=== PATIENT | female | born 1940 | race Hispanic/Latino ===

== ENCOUNTER 2018-08-05 05:44 | Day surgery (SDC) | payer MEDICARE ==
[2018-08-03 13:24] LABS: POTASSIUM 4.5 mmol/L (3.5-5.1)
[2018-08-03 13:25] LABS: BASOPHILS % (AUTO) 0.6 % (0.0-5.0); EOSINOPHILS % (AUTO) 1.5 % (0.0-8.0); HEMATOCRIT 34.2 % (36-48); LYMPHOCYTES % (AUTO) 27.8 % (21.0-51.0); MEAN CORPUSCULAR HEMOGLOBIN 36.3 pg (27.0-33.0); MEAN CORPUSCULAR VOLUME 106.7 fL (79-99); NEUTROPHILS % (AUTO) 60.1 % (40.0-77.0); PLATELET COUNT (AUTO) 154 K/uL (130-400); RED BLOOD CELL COUNT(AUTO) 3.21 MIL/uL (4.00-5.50); RED CELL DISTRIBUTION WIDTH 14.2 % (11.0-15.5); WHITE BLOOD COUNT (AUTO) 7.1 K/uL (4.8-10.8)
[2018-08-03 13:42] VITALS: BP 125/69
[2018-08-03 13:44] LABS: INR 3.2 (0.85-1.15); PARTIAL THROMBOPLASTIN TIME 54.6 SEC (26.3-35.5); PROTHROMBIN TIME 32.8 SEC (9.6-11.6)
[2018-08-05] VITALS (8 sets, daily range): BP systolic 98–140; BP diastolic 42–80
[~2018-08-05] VITALS: Ht 156.2 cm; Wt 75.4 kg
[~2018-08-05 05:44] MED LIST: CALC-1009 PO; CEFAZOLIN SODIUM 1 GM VIAL IVP SCH; FISH1CAP27 PO; METO25TA6 PO; PANT20TA12 PO; SODIUM CHLORIDE 0.9% 1000ML 1,000 ML IV SCH; TAMO20TA4 PO; WARF2.5T47 PO; WARF5TAB76 PO
[2018-08-05 06:41] LABS: INR 1.82 (0.85-1.15); PARTIAL THROMBOPLASTIN TIME 34.6 SEC (26.3-35.5); PROTHROMBIN TIME 18.9 SEC (9.6-11.6)
[2018-08-05] MEDS ORDERED: CYAN100T PO (07:27)
[2018-08-05] MEDS ORDERED: BRIM5DRO OP (07:27)
[2018-08-05] MEDS ORDERED: MIDAZOLAM HCL 1 MG/ML 2ML VIAL ONE (08:25)
[2018-08-05] MEDS ORDERED: BUPIVACAINE/PF 0.25% 30ML VIAL IJ ONE (08:25)
[2018-08-05] MEDS ORDERED: LIDOCAINE HCL 1% MDV 50ML VIAL ONE (08:25)
[2018-08-05] MEDS ORDERED: MEPERIDINE-PF 25 MG/ML SYG ONE (08:25)
[2018-08-05] MEDS ORDERED: CEFAZOLIN SODIUM 1 GM VIAL ONE (08:26)
[2018-08-05] MEDS ORDERED: ACETAMINOPHEN-CODEINE 300/30MG TAB PO PRN ×2 (09:45)
[2018-08-05] MEDS ORDERED: ACETAMINOPHEN 325 MG TAB PO PRN (09:45)
[2018-08-05] MEDS ORDERED: ONDANSETRON HCL 4 MG/2 ML VIAL IV PRN (09:45)
[2018-08-05] MEDS ORDERED: CEFAZOLIN SODIUM 1 GM VIAL IVP ONE (10:00)
[2018-08-05] MEDS ORDERED: WARFARIN SODIUM 7.5 MG TAB PO ONE (12:00)
== END 2018-08-05 13:09 | disposition home or self-care (01) ==
LOC: DAH 05:44
PROVIDERS: ATTEND Internal Medicine Cardiovascular Disease
DX: Z45.010 Encounter for checking and testing of cardiac pacemaker pulse generator [battery] (principal); I48.1 Persistent atrial fibrillation; Z79.01 Long term (current) use of anticoagulants; Z98.890 Other specified postprocedural states; Z79.899 Other long term (current) drug therapy; Z83.3 Family history of diabetes mellitus
CPT/HCPCS: 33228; 36415 ×2; 80048; 85025; 85610 ×2; 85730 ×2; A4606; C1785; J0690 ×2; J2175; J2250; J3490 ×2; J7030; 99156; 99157

== ENCOUNTER → 2018-10-07 | Outpatient (CLI) | payer MEDICARE ==
[~2018-10-07] MED LIST changes: +ALBUTEROL SULFATE 0.083% 2.5 MG/3 ML INH IH ONE; +BRIM5DRO OP; -CEFAZOLIN SODIUM 1 GM VIAL IVP SCH; +CYAN100T PO; -SODIUM CHLORIDE 0.9% 1000ML 1,000 ML IV SCH
== END | disposition home or self-care (01) ==
LOC: RESP 09:53
PROVIDERS: ATTEND Internal Medicine Cardiovascular Disease
DX: R06.02 Shortness of breath (principal)
CPT/HCPCS: 94060; 94727; 94729

== ENCOUNTER 2025-07-11 08:45 | Inpatient (IN) | payer MEDICARE ==
[~2025-07-11] VITALS: Ht 154.9 cm; Wt 68.6 kg
[2025-07-11] VITALS (33 sets, daily range): BP systolic 90–134; BP diastolic 32–70; PULSE 63–90; RESP 14–41; TEMP 98.9–99.8; O2SAT 90–98
[~2025-07-11 08:45] MED LIST changes: -ALBUTEROL SULFATE 0.083% 2.5 MG/3 ML INH IH ONE; -CYAN100T PO; +CYAN100T45 PO; -PANT20TA12 PO; +PANT20TA18 PO; +WARF2.5T PO; -WARF2.5T47 PO; +WARF5TAB PO; -WARF5TAB76 PO
--- NOTE | 2025-07-11 08:57 | ERN ---
General Chief Complaint: Shortness of Breath Stated Complaint: SHORTNESS OF BREATH Time Seen by MD: 08:54 History of Present Illness Initial Comments 84-year-old female hit history of multiple cardiac comorbidities including CABG CHF mitral valve replacement and AFib presents for dyspnea. According to the patient, she went to bed in her normal state of health. Around 3:00 a.m. she developed dyspnea and had to sit up. She normally uses 3 L of nasal cannula at home. EMS reports an oxygen saturation in the high 70s. Patient placed on a non-rebreather mask by EMS and oxygen saturation improved to 95%. Patient is tachypneic breathing 30 times a minute. She does have some crackles bilateral lungs. She denies any productive sputum or fever. She does report cough. She has 1+ pitting edema bilaterally. She denies any pain. Allergies: Coded Allergies: No Known Drug Allergies (Unverified Allergy, Unknown, 08/03/18) Home Meds Reported Medications Brimonidine Tartrate/Timolol (Combigan Eye Drops) 5 Ml Drops, 5 ML OP BID, DROP 08/05/18 Cyanocobalamin (Vitamin B-12) (Vitamin B-12) 100 Mcg Tablet, 100 MCG PO DAILYLUNCH, TAB 08/05/18 Pantoprazole Sodium (Pantoprazole Sodium) 20 Mg Tablet.dr, 20 MG PO DAILY, TAB 08/03/18 Niles-3 Fatty Acids/Fish Oil (Niles 3 1,000 mg Softgel) 1 Each Capsule, 1 EACH PO NOON, CAP 08/03/18 Calcium Carb & Cit/Vitamin D3 (Calcium + D3 ER Tablet) 1 Each Tablet.er, 1 EACH PO NOON, TAB 08/03/18 Tamoxifen Citrate (Tamoxifen Citrate) 20 Mg Tablet, 20 MG PO DAILY, TAB 08/03/18 Metoprolol Tartrate (Metoprolol Tartrate) 25 Mg Tablet, 25 MG PO BID, TAB 08/03/18 Warfarin Sodium (Coumadin) 2.5 Mg Tablet, 2.5 MG PO //fri, TAB 08/03/18 Warfarin Sodium (Coumadin) 5 Mg Tablet, 5 MG PO m//sat/sun, TAB 08/03/18 ROS Dictation CONSTITUTIONAL: No chills, no fever, no weakness, no diaphoresis, no malaise. HEAD/FACE: No signs of trauma. EENT: No eye pain, no blurred vision, no tearing, no double vision, no ear pain, no ear discharge, no nose pain, no nasal congestion, no throat pain, no throat swelling, no mouth pain. RESPIRATORY: Dyspnea CARDIOVASCULAR: No chest pain, no edema, no palpitations, no syncope. GASTROINTESTINAL/ABDOMINAL: No abdominal pain, no constipation, no diarrhea, no nausea, no vomiting. GENITOURINARY: No abnormal discharge, no dysuria, no frequent urination, no hematuria. No complaints of pain in the genitals. MUSCULOSKELETAL: No back pain, no gout, no joint pain, no joint swelling, no muscle pain, no muscle stiffness, no neck pain. INTEGUMENTARY: No change in color, no change in hair/nails, no dryness, no lesion, no lumps, no rash. NEUROLOGICAL/PSYCH: No anxiety, not depressed, no emotional problem, no headache, no numbness, no pre-existing deficit, no history of seizures, no tremors, no weakness. HEMATOLOGIC/LYMPHATIC: Not anemic, no history of blood clots, no apparent bleeding, no bruising, glands not swollen. All Systems Negative, Except as Noted. Physical Exam Physical Exam Dictation VITAL SIGNS: Reviewed. GENERAL APPEARANCE: Alert, oriented x3, moderate distress due to the dyspnea HEAD AND FACE: Non-traumatic. EYES: PERRL, pink conjunctivas, eyelid no trauma, anterior chamber clear. EARS: Pinnas intact and no signs of trauma or erythema. Ear canals clear and no discharge. TMs no erythema. NOSE: No discharge, no bleeding. OROPHARYNX: Mouth normal, teeth no caries, tongue pink. Pharynx clear, no erythema. Tonsils no exudates, no abscesses noted. Mucous membrane moist. NECK: Supple, non-tender, no thyromegaly, no masses, no JVD, no bruits. BREAST: Deferred. CHEST: No tenderness, no crepitus, no paradoxical movement, no retractions. LUNGS: Tachypneic, crackles in the lung sounds HEART: Regular rate, regular rhythm, no murmur, no gallops. VASCULAR: No peripheral edema. ABDOMEN: Soft, positive bowel sounds, nondistended, no guarding, nontender, no rebound, no masses no hepatomegaly, no splenomegaly, no Boston's sign, no hernias. RECTAL: Deferred. GENITAL: Deferred. NEUROLOGICAL: Normal speech, gross motor function intact, gross sensory fun ction intact. MUSCULOSKELETAL: Neck nontender, full range of motion, back nontender, full range of motion. 1+ pitting edema EXTREMITIES: Nontender, full range of motion. SKIN: Color pink, dry, no turgor, no rash, no lacerations, no abrasions, no contusions. LYMPHATICS: Deferred. Results Laboratory and Microbiology Lab and Micro Result Laboratory Tests Test 07/11/25 09:05 07/11/25 09:31 White Blood Count 14.2 K/uL (4.8-10.8) H Red Blood Count 2.67 MIL/uL (4.00-5.50) L Hemoglobin 8.4 g/dL (12.0-16.0) L Hematocrit 28.7 % (36-48) L Mean Corpuscular Volume 107.5 fL (79-99) H Mean Corpuscular Hemoglobin 31.5 pg (27.0-33.0) Mean Corpuscular Hemoglobin Concent 29.3 g/dL (32.0-36.0) L Red Cell Distribution Width 17.9 % (11.0-15.5) H Platelet Count 238 K/uL (130-400) Mean Platelet Volume 10.7 fL (7.5-10.5) H Immature Granulocyte % (Auto) 0.4 % (0-1) Neutrophils (%) (Auto) 84.9 % (40.0-77.0) H Lymphocytes (%) (Auto) 5.6 % (21.0-51.0) L Monocytes (%) (Auto) 8.3 % (3.0-13.0) Eosinophils (%) (Auto) 0.6 % (0.0-8.0) Basophils (%) (Auto) 0.2 % (0.0-5.0) Neutrophils # (Auto) 12.0 K/uL (1.8-7.7) H Lymphocytes # (Auto) 0.8 K/uL (1.0-4.8) L Monocytes # (Auto) 1.2 K/uL (0.1-1.0) H Eosinophils # (Auto) 0.09 K/uL (0.00-0.70) Basophils # (Auto) 0.03 K/uL (0.00-0.20) Absolute Immature Granulocyte (auto 0.06 K/uL (0-1) Nucleated Red Blood Cells 0.4 % (0.0-0.19) H Sodium Level 140 mmol/L (136-145) Potassium Level 5.1 mmol/L (3.5-5.1) Chloride Level 102 mmol/L (101-111) Carbon Dioxide Level 33 mmol/L (21-32) H Blood Urea Nitrogen 26 mg/dL (7-18) H Creatinine 1.1 mg/dL (0.5-1.0) H Glomerular Filtration Rate Calc 49 mL/min (>90) Random Glucose 188 mg/dL (70-105) H Lactic Acid Level 3.1 mmol/L (0.8-2.5) H Total Calcium 8.9 mg/dL (8.5-10.1) Total Creatine Kinase 73 U/L (21-232) Troponin I High Sensitivity 19.1 ng/L (4-50) Blood Gas Specimen Type Arterial Arterial Blood pH 7.315 (7.350-7.450) Arterial Blood Partial Pressure CO2 56 mmHg (32-45) H Arterial Blood Partial Pressure O2 149.2 mmHg (83.0-108.0) H Arterial Blood HCO3 27.7 mmol/L (21.0-28.0) Arterial Blood Oxygen Saturation 98.7 % (94.0-98.0) H Arterial Blood Base Excess 1.0 mmol/L (-2.0-3.0) Hemoglobin (Blood Gas) 9.2 g/dL (12.0-16.0) L Sodium (Blood Gas) 137 MMOL/L (136-145) Bedside Potassium (Blood Gas) 4.8 MMOL/L (3.4-4.5) H Bedside Chloride (Blood Gas) 103 MMOL/L (98-107) Bedside Glucose (Blood Gas) 165 MG/DL (65-95) H Bedside Ionized Calcium (Blood Gas) 1.17 MMOL/L (1.15-1.33) Bedside Lactic Acid (Blood Gas) 1.58 MMOL/L (0.36-0.75) H Blood Gas Temperature 37.0 CELSIUS (35.5-37.0) Blood Gas Flow-by 15.00 L/min (0.00-15.00) Blood Gas Vent Mode NRM (ROOM AIR) FiO2 100.0 % Blood Gas Specimen Comment CRISTA, [facility] CC: dyspnea Historian: patient Comorbidities: afib, CABG, gastritis Limitations by social determinates of health: none Ddx: pneumonia, pulm edema, sepsis, hypoxia, ACS, etc. Fever, tachycardia, tachypnea, BP stable. EKG shows atrial fibrillation, rate of 90, left axis deviation, delayed R-wave progression. No STEMI. Independently interpreted by me. Labs show leukocytosis 14.2 K left shift no bands. Macrocytic anemia hemoglobin 8.4. ABG shows a pCO2 of 56 PaO2 of 149 while on BiPAP. Chemistry shows BUN 26 creatinine 1.1. Lactic acid 3.1. Troponin stable. Chest x-ray shows fluid overload with cardiomegaly, also right upper lobe pneumonia. Labs and imaging independently interpreted by me. Treatment in ED: Zosyn, azithromycin, BiPAP, 500 cc lactated Ringer's. 40 mg Lasix IV. DuoNeb. Patient does meet sepsis criteria, likely source lungs. Clinically patient has a also fluid overloaded. Patient was placed on BiPAP and became stable. She has been develop a fever and received some Tylenol. Patient only received 500 cc of lactated Ringer's because she is clinically fluid overloaded, want to avoid fluid overload. On sepsis focused re-evaluation after the IV fluids and IV antibiotics the patient has cap refill less than 2 seconds since stable perfusion. Admitted to hospitalist. ED Course Orders Procedure Category Date Status Time Arterial Blood Gas RT 07/11/25 Transmitted 08:54 Bipap Settings RT 07/11/25 Transmitted 08:54 Cbc With Differential LAB 07/11/25 In Process 08:54 Cardiac Panel LAB 07/11/25 Complete 08:54 Chest 1vw RAD 07/11/25 Resulted 08:54 Ipratropium/Albuterol PHA 07/11/25 Complete Neb (Duoneb) 09:00 Furosemide 40mg Vial PHA 07/11/25 Complete (Lasix 40mg Vial) 09:00 Basic Metabolic Panel LAB 07/11/25 Complete 08:54 Covid19 (Sars Antigen LAB 07/11/25 Logged Rapid) 08:54 Influenza Type A & B, LAB 07/11/25 Logged Rapid 08:54 12 Lead Ekg Tracing- EKG 07/11/25 Complete Technical 08:54 Lactic Acid LAB 07/11/25 Complete 09:01 Blood Cult KOFI 07/11/25 In Process 09:01 Arterial Blood Gas LAB 07/11/25 Complete Arterial + 09:31 Zosyn 3.375gm+Ns 50ml PHA 07/11/25 Complete (Zosyn 3.375gm+Ns 10:00 Azithromycin 500mg+Ns PHA 07/11/25 In Process 250ml (Azithromyci 10:00 Lactated Ringers PHA 07/11/25 Complete 1000ml (Lactated 10:00 Nurse Driven Cantu KAMINI 07/11/25 In Process Removal Pro 10:13 Current Medications Medications (Trade) Dose Ordered Sig/Macey Route PRN Reason Start Time Stop Time Status Last Admin Dose Admin Albuterol (DUOneb) 1 udvial ONCE ONCE IH 07/11/25 09:00 07/11/25 09:01 DC 07/11/25 09:43 Azithromycin 250 ml @ 250 mls/hr ONCE ONCE IVPB 07/11/25 10:00 07/11/25 10:59 Furosemide (LASix 40MG VIAL) 40 mg ONCE ONCE IVP 07/11/25 09:00 07/11/25 09:01 DC 07/11/25 09:41 Lactated Ringer's 500 ml @ 0 mls/hr ONCE ONCE IV 07/11/25 10:00 07/11/25 10:01 DC Piperacillin Sod/ Tazobactam Sod (Zosyn 3.375gm+NS 50ml) 3.375 gm ONCE ONCE IV 07/11/25 10:00 07/11/25 10:01 DC Vital Signs Date Time Temp Pulse Resp B/P (MAP) Pulse Ox O2 Delivery O2 Flow Rate FiO2 07/11/25 09:40 87 34 07/11/25 09:33 87 34 40 07/11/25 09:13 100.2 68 37 144/51 100 Non-Rebreather+ 15 100 07/11/25 08:49 103.6 115 26 98/62 94 Nonrebreathing Mask 15.0 DX & DISP Disposition: Inpatient Departure Impression: Primary Impression: Sepsis Additional Impressions: Pneumonia, community acquired, Macrocytic anemia, Pulmonary edema, Respiratory failure with hypoxia and hypercapnia Critical Time: 30 minutes (Critical Care Procedure NoteAuthorized and Performed by: meTotal critical care time: Approximately 36 minutesDue to a high probability of clinically significant, life threatening deterioration, the patient required my highest level of preparedness to intervene emergently and I personally spent this critical care time directly and personally managing the patient. This critical care time included obtaining a history; examining the patient; pulse oximetry; ordering and review of studies; arranging urgent treatment with development of a management plan; evaluation of patient's response to treatment; frequent reassessment; and, discussions with other providers.This critical care time was performed to assess and manage the high probability of imminent, life-threatening deterioration that could result in multi-organ failure. It was exclusive of separately billable procedures and treating other patients and teaching time.Please see MDM section and the rest of the note for further information on patient assessment and treatment.) Condition: Stable Referrals: JOVANNA ARMENTA MD (PCP) RUBEN BARTLETT DO Jul 11, 2025 08:57
[2025-07-11 09:14] LABS: IMMATURE GRANULOCYTE ABSOLUTE 0.06 K/uL (0-1); NUCLEATED RED BLOOD CELLS 0.4 % (0.0-0.19); PLATELET COUNT (AUTO) 238 K/uL (130-400); RED BLOOD CELL COUNT(AUTO) 2.67 MIL/uL (4.00-5.50); RED CELL DISTRIBUTION WIDTH 17.9 % (11.0-15.5); WHITE BLOOD COUNT (AUTO) 14.2 K/uL (4.8-10.8)
[2025-07-11 09:21] LABS: CREATININE 1.1 mg/dL (0.5-1.0); GLOMERULAR FILTR. RATE CALC 49.0 mL/min (>90); GLUCOSE,RANDOM 188.0 mg/dL (70-105); SODIUM SERUM 140.0 mmol/L (136-145); UREA NITROGEN, BLOOD 26.0 mg/dL (7-18)
[2025-07-11 09:29] LABS: CREATINE KINASE, TOTAL 73.0 U/L (21-232)
[2025-07-11 09:33] LABS: ABG BASE EXCESS 1.0 mmol/L (-2.0-3.0); ABG HCO3 27.7 mmol/L (21.0-28.0); ABG OXYGEN SATURATION 98.7 % (94.0-98.0); ABG PCO2 56 mmHg (32-45); ABG PH 7.315 (7.350-7.450); CARBON MONOXIDE 0.6 % (0.5-1.5); PO2, ARTERIAL BG 149.2 mmHg (83.0-108.0); TEMPERATURE, CELSIUS BG 37.0 CELSIUS (35.5-37.0); VENT MODE, BG NRM (ROOM AIR)
--- NOTE | 2025-07-11 09:44 | HMCIMG ---
EXAM: CR Chest, 1 View. CLINICAL HISTORY: Dyspnea/SOB COMPARISON: Radiograph dated September 20, 2003. FINDINGS: Right upper lobe pneumonia. No pleural effusion or pneumothorax. Elevation of the right hemidiaphragm. Prior aortic valve replacement. Pacer leads overlying the right atrium and right ventricle. There is mild cardiomegaly and pulmonary vascular congestion. IMPRESSION: 1. Right upper lobe pneumonia. 2. Mild cardiomegaly and pulmonary vascular congestion. 3. Elevated right hemidiaphragm. /Kila
--- NOTE | 2025-07-11 10:19 | EKG ---
[facility] Test Date: 2025-07-11 Test Time: 08:56:43 Pat Name: PK BATEMAN Department: ED Room: ED Gender: F Machine Operators: [id number] : [id number] Requested By: RUBEN BARTLETT [facility]: [id number] Reading MD: Margareth Mai Measurements Intervals Reading Rate: 90 P: 0 ND: 0 QRS: -52 QRSD: 139 T: 108 QT: 380 QTc: 465 Interpretive Statements Afib/flutter and ventricular-paced rhythm No previous ECG available for comparison Electronically Signed On 07-11-2025 12:30:05 CDT by Margareth Mai Please click the below link to view image of tracing.
[2025-07-11] MEDS: LACTATED RINGERS 1000ML 500 ML IV ONE (10:51)
[2025-07-11] MEDS: ZOSYN 3.375GM +NS 50ML IV ONE (10:51)
[2025-07-11] MEDS: AZITHROMYCIN 500MG+NS 250ML 250 ML IVPB ONE (10:56)
[2025-07-11] MEDS ORDERED: RENAL DOSE IV PRN (11:00)
[2025-07-11] MEDS ORDERED: VANCOMYCIN KIT 1 GM/250 ML IV.KIT IV SCH (11:00)
[2025-07-11] MEDS ORDERED: LACTULOSE 20 GM/30 ML UDCUP PO PRN (11:00)
[2025-07-11 11:08] LABS: WBC MORPHOLOGY CONSISTENT W/DIFF
--- NOTE | 2025-07-11 11:10 | HP ---
[facility] HISTORY AND PHYSICAL Date of Service: Jul 11, 2025 Time of Service: 10:54 HISTORY OF PRESENT ILLNESS: [ ] This is a 84-year-old female that presents in ED with chief complaints of shortness a breath. She was brought in by EMS in route patient was placed on non-rebreather. Patient has past medical history of congestive heart failure mitral valve replacement on Coumadin, AFib, advanced pulmonary fibrosis oxygen dependent. Onset shortness a breath has been gradually and progressed over the weekend. Severity severe aggravating factors activity laying flat. Alleviating factors none. Associated symptoms productive cough, mild chills overnight. Patient reports choking with thin liquids. Patient was admitted a month ago at [facility] for similar symptoms. Patient follows risk analyst's Dr. Sachin Maynard MD. [facility] primary tax compliance manager's Dr. Stevens. Spoke with MPOA: Neva Garrison modified DNR on this admission Home medications carvedilol 3.125 mg twice a day, atorvastatin 10 mg p.o. at bedtime, losartan 25 mg p.o. daily, Lasix 40 mg twice a day. Folic acid 1 mg p.o. daily During the course of stay patient received oxygen supplemental, bronchodilators, diuretics in IV antibiotics. Labs reviewed leukocytosis 14.2 hemoglobin 8.4 hematocrit 28.7 lactic acid 3.1 BUN 26 creatinine 1.1 GFR 49 glucose 188 Vital signs on arrival temperature 103.6 pulse 115 respirations 37 blood pressure 98/62 oxygen level 90 patient was placed on non-rebreather transitioned to BiPAP support. REVIEW OF SYSTEMS A 12 point ROS obtained all relevant positive documented otherwise ROS negative PAST MEDICAL HISTORY: [ ] CHF mitral valve replacement, AFib PAST SURGICAL HISTORY: [ ] CABG, mitral valve replacement PAST SOCIAL HISTORY: [ ] Denies smoking tobacco products and alcohol use. FAMILY HISTORY: [ ] Noncontributory Coded Allergies: No Known Drug Allergies (Unverified Allergy, Unknown, 08/03/18) PHYSICAL EXAM GENERAL APPEARANCE: The patient is awake, alert, and oriented, acute cardiopulmonary distress on Bipap support NEUROLOGICAL: Cranial nerves II-XII grossly intact. Motor is 5/5 in bilateral upper and lower extremities proximal to distal. No sensory deficits. HEENT: Face is symmetric. Pupils are equal and reactive. Extraocular movements are intact. NECK: Supple. No JVD. No thyromegaly. No submental, submandibular, pre- /postauricular, occipital or supraclavicular lymphadenopathy. CHEST: Normal chest expansion. ++Telemetry. LUNGS:++ rales, rhonchi CARDIOVASCULAR: Regular. S1 and S2 normal. No appreciable rubs, murmurs or gallops. ABDOMEN: Soft, nontender, and nondistended. There is no rebound, voluntary guarding, or rigidity. : Deferred. No Cantu. EXTREMITIES: slight-edematous lower ext. and not cyanotic. No clubbing. Good capillary refill. SKIN: No skin breakdown. Vital Sign (Last 24 Hours) 07/11/25 07/11/25 09:13 10:36 Temp 100.2 Pulse 65 Resp 32 B/P (MAP) 123/48 Pulse Ox 90 O2 Delivery Bi-PAP+ O2 Flow Rate 15 FiO2 40 LABS: Laboratory: Test 07/11/25 09:31 07/11/25 09:05 Range/Units Blood Gas Specimen Type Arterial Arterial Blood pH 7.315 L 7.350-7.450 Arterial Blood Partial Pressure CO2 56 H 32-45 mmHg Arterial Blood Partial Pressure O2 149.2 H 83.0-108.0 mmHg Arterial Blood HCO3 27.7 21.0-28.0 mmol/L Arterial Blood Oxygen Saturation 98.7 H 94.0-98.0 % Arterial Blood Base Excess 1.0 -2.0-3.0 mmol/L Hemoglobin (Blood Gas) 9.2 L 12.0-16.0 g/dL Sodium (Blood Gas) 137 136-145 MMOL/L Bedside Potassium (Blood Gas) 4.8 H 3.4-4.5 MMOL/L Bedside Chloride (Blood Gas) 103 98-107 MMOL/L Bedside Glucose (Blood Gas) 165 H 65-95 MG/DL Bedside Ionized Calcium (Blood Gas) 1.17 1.15-1.33 MMOL/L Bedside Lactic Acid (Blood Gas) 1.58 H 0.36-0.75 MMOL/L Blood Gas Temperature 37.0 35.5-37.0 CELSIUS Blood Gas Flow-by 15.00 0.00-15.00 L/min Blood Gas Vent Mode NRM ROOM AIR FiO2 100.0 % Blood Gas Specimen Comment DR.WORTH CRISTA White Blood Count 14.2 H 4.8-10.8 K/uL Red Blood Count 2.67 L 4.00-5.50 MIL/uL Hemoglobin 8.4 L 12.0-16.0 g/dL Hematocrit 28.7 L 36-48 % Mean Corpuscular Volume 107.5 H 79-99 fL Mean Corpuscular Hemoglobin 31.5 27.0-33.0 pg Mean Corpuscular Hemoglobin Concent 29.3 L 32.0-36.0 g/dL Red Cell Distribution Width 17.9 H 11.0-15.5 % Platelet Count 238 130-400 K/uL Mean Platelet Volume 10.7 H 7.5-10.5 fL Immature Granulocyte % (Auto) 0.4 0-1 % Neutrophils (%) (Auto) 84.9 H 40.0-77.0 % Lymphocytes (%) (Auto) 5.6 L 21.0-51.0 % Monocytes (%) (Auto) 8.3 3.0-13.0 % Eosinophils (%) (Auto) 0.6 0.0-8.0 % Basophils (%) (Auto) 0.2 0.0-5.0 % Neutrophils # (Auto) 12.0 H 1.8-7.7 K/uL Lymphocytes # (Auto) 0.8 L 1.0-4.8 K/uL Monocytes # (Auto) 1.2 H 0.1-1.0 K/uL Eosinophils # (Auto) 0.09 0.00-0.70 K/uL Basophils # (Auto) 0.03 0.00-0.20 K/uL Absolute Immature Granulocyte (auto 0.06 0-1 K/uL Nucleated Red Blood Cells 0.4 H 0.0-0.19 % Sodium Level 140 136-145 mmol/L Potassium Level 5.1 3.5-5.1 mmol/L Chloride Level 102 101-111 mmol/L Carbon Dioxide Level 33 H 21-32 mmol/L Blood Urea Nitrogen 26 H 7-18 mg/dL Creatinine 1.1 H 0.5-1.0 mg/dL Glomerular Filtration Rate Calc 49 >90 mL/min Random Glucose 188 H 70-105 mg/dL Lactic Acid Level 3.1 H 0.8-2.5 mmol/L Total Calcium 8.9 8.5-10.1 mg/dL Total Creatine Kinase 73 21-232 U/L Troponin I High Sensitivity 19.1 4-50 ng/L DIAGNOSTICS / RADIOLOGY: [ ] ASSESSMENT: Acute respiratory failure with hypoxia POA requiring oxygen supplemental BiPAP support Suspecting aspiration pneumonia POA History advanced pulmonary fibrosis POA Home oxygen dependent POA acute CHF on Chronic CHF with Mitral value replacement Hypercoagulable state on Coumadin secondary to MVR A fibb pOA Sepsis( temperature 103.6 heart rate 115 respirations 26) POA BINU on chronic renal failure POA Acute anemia on chronic anemia POA debility with physical deconditioning PLAN: [ ] Admit: ICU condition: Guarded Status: MODIFIED DNR IVF: heplock Diet: NPO for now until Speech recommendations. Consultants critical team, tax compliance manager and sales floor team member Antibiotics: Cefepime 2 g IV every 12 hours vancomycin IV daily pharmacy to dose. Imaging 2D echo to evaluate LV function, venous doppler Microbiology: pending results: COVID-19 influenza a and B strep respiratory cultures in reference Resp failure with RUL pneumonia: Duo nebs as needed; oxygen supplemental to keep O2 saturations above 92% Aspiration precautions head of the bed at 45 at all times, speech consulted to rule out aspiration Labs cbc, cmp, mag+ in a.m. Replace electrolytes as needed as per protocol to keep potassium above 4.0 magnesium 2.0. Home medications reviewed and reconciled Coumadin 2.5 mg on SA Friday, 5mg on : Daily INR will monitor H/H trends transfuse to keep HGB above 7.: consulted Visiting Housekeeper OB x1, anemia workup, flow cytometry blood only resumed carvedilol 3.125 mg p.o. b.i.d. for rate control restarted Folic acid 1 mg po daily and ferrous sulfate 325 mg po daily PRN: MEDICATIONS Tylenol 650 mg po every 4 hrs for fever zofran 4 mg IV every 6 hrs for n/v Hydralazine 5 mg IV every 4 hrs systolic pressure > 160 bowel regiment: lactulose 20 gm PO BID PRN constipation Supportive measures: DVT ppx, GI ppx all questions answered time spent: > 35 min Supervising MD: Dr. Osorio c/d This document was generated in part using voice recognition software, occasional wrong word or sound alike substitutions may have occurred due to the inherent limitations of voice recognition software. Read the chart carefully and recognize using context, where the substitutions have occurred. Although every effort was made to edit the content, electric power line examiner and typing errors may occur ADVANCED CARE PLANNING 1. Which of the following were discussed? Hospice Care - Yes / No Therapeutic options - Yes / No Advance Directives - Yes / No Other discussions - 2. Discussed with who? 3. Voluntary nature of this service was explained to the patient? Yes / No 4. Amount of time spent - 5. Reviewed by Physician? (if this service was performed by NPP) Yes / No ATTESTATION BY PHYSICIAN I have seen and examined the patient. I reviewed the documentation, medical decision making, and treatment plan as noted by the mid-level provider above. I agree with the findings and plan of care. DAYANNA OSORIO MD, ELIZABETH NP Jul 11, 2025 11:10
[2025-07-11 11:28] LABS: INFLUENZA TYPE A Negative For Type A (NEGATIVE); INFLUENZA TYPE B Negative For Type B (NEGATIVE)
[2025-07-11 11:29] LABS: COVID19 (SARS ANTIGEN RAPID) PRESUMPTIVE NEGATIVE (NEGATIVE)
[2025-07-11] MEDS ORDERED: MAGNESIUM 2GM PREMIX 50ML 50 ML IV PRN (11:30)
[2025-07-11] MEDS ORDERED: PoTASSium chl 10% ELIXIR 20MEQ 20 MEQ/15 ML UDCUP PO PRN (11:30)
--- NOTE | 2025-07-11 12:23 | HMCSR ---
APPROVED REPORT EXAM: Two-dimensional and M-mode echocardiogram with Doppler and color Doppler. INDICATION ICD: Congestive heart failure 2D Dimensions RVDd4.6 cmLVEF(%)61.1 (>50%)LVED Vol(simp.)85.0 mL IVSd0.6 (0.7-1.1cm)FS(%)33 %LVES Vol(simp.)38.0 mL LVDd4.7 (3.8-5.6cm)LA (2D)6.0 (1.6-4.0cm)LVEF(%, simp.)56 % PWd0.9 (0.7-1.1cm)Ao Root(2D)3.3 (2.0-3.7cm)LA ESV INDEX (BP)63.74 mL/m2 IVSs1.0 cmLVOT diam2.0 (1.8-2.4cm) LVDs3.2 (2.5-4.0cm)IVC diam2.2 cm PWs1.4 cm Deformation Strain Apical 4-12.5 % Apical 2-16.0 % Apical 3-13.3 % Global Strain-13.9 % M-Mode Dimensions LA (MM)6.2 (1.6-4.0cm) Ao Root(MM)2.7 (2.0-3.7cm) Aortic Valve AoV Vmax1.8 m/Michael Peak GR12.7 mmHgLVOT Vmax0.9 m/s AoV VTI0.3 mAo Mean GR8.2 mmHgLVOT VTI0.17 m VINCENZO (VMAX)1.47 cm2AVA (VTI) 1.5 cm2 Mitral Valve MV E Zzzv639.6 cm/sDECEL [id number] msMV Peak GR14 mmHg P 1/2 T69 msMV Mean GR4 mmHg MVA (PHT)3.2 cm2MVA (VTI)1.35 cm2 TDI E/E' Ytbsnz20.8E/E' Ervuaok87.0 Medial E' Peak V4.91 cm/sLateral E' Peak V6.06 cm/s Pulmonary Valve PV Vmax0.8 m/sPV VTI0.16 mPV Mean GR1.7 mmHg PV Peak GR2.7 mmHgPI End Naila. Rodríguez 82.2 cm/s Tricuspid Valve TR Vmax3.0 m/sRAP (EST) 15 moDyICGJ14.2 mmHg TR Peak GR37.2 mmHg Left Ventricle The left ventricle is normal size. GLS -14.0% There is normal left ventricular wall thickness. LVEF i s 55-60%. Stage II diastolic dysfunction. Right Ventricle The right ventricle is moderately dilated. The right ventricular systolic function is normal. Atria The left atrium is severely dilated. The right atrium is moderately dilated. Aortic Valve Aortic valve is trileaflet. Aortic valve annular calcification noted. No aortic regurgitation is pres ent. There is mild aortic valvular stenosis. Pk G 13mmHg. mean G 8mmHg and AoV area 1.5cm2 Mitral Valve Mitral valve prosthesis is not well visualized. There is trace of mitral valve regurgitation noted. P rosthetic valve Pk G 14mmHg, with mean gradient 4mmHg. Tricuspid Valve The tricuspid valve is normal in structure. There is moderate tricuspid valve regurgitation noted. RV SP 52mmHg. Pulmonic Valve The pulmonary valve is normal in structure. There is trace of pulmonic valvular regurgitation. Great Vessels The aortic root is normal in size. IVC is dilated and collapses <50% with inspiration. Pericardium There is no pericardial effusion. Other Information Quality : Technically difficult study due to body habitus Rhythm : NSR Conclusion LVEF is 55-60%. Stage II diastolic dysfunction. The right ventricle is moderately dilated. The left atrium is severely dilated. There is mild aortic valvular stenosis. Pk G 13mmHg. mean G 8mmHg and AoV area 1.5cm2 Mitral valve prosthesis is not well visualized. Peak gradient 14mmHg, with mean gradient 4mmHg. Moderate tricuspid valve regurgitation noted. RVSP 52mmHg.
[2025-07-11 12:52] LABS: % IRON SATURATION 11.8 % (22-44); IRON, SERUM 60.0 mcg/dL (50-170)
[2025-07-11] MEDS ORDERED: ALLO100T PO (13:55)
[2025-07-11] MEDS ORDERED: CARV3.12 PO (13:56)
[2025-07-11] MEDS ORDERED: FURO40TA5 PO (13:56)
[2025-07-11] MEDS ORDERED: LOSA50TA64 PO (13:57)
[2025-07-11] MEDS ORDERED: ATOR10 PO (13:58)
[2025-07-11] MEDS: SODIUM CHLORIDE 3% FOR INHALATION 4 ML/AMP VIAL.NEB IH ONE ×3 (13:58→23:22)
[2025-07-11] MEDS ORDERED: POTA-202 PO (13:59)
[2025-07-11] MEDS ORDERED: WARF-57 PO (14:02)
[2025-07-11] MEDS ORDERED: WARF2.5T85 PO (14:04)
--- NOTE | 2025-07-11 14:16 | NUR ---
REPORT GIVEN TO NURSE JUAREZ RM [id number]
[2025-07-11 14:53] LABS: ABG BASE EXCESS 3.4 mmol/L (-2.0-3.0); ABG HCO3 29.6 mmol/L (21.0-28.0); ABG OXYGEN SATURATION 79.0 % (94.0-98.0); ABG PCO2 54 mmHg (32-45); ABG PH 7.355 (7.350-7.450); CARBON MONOXIDE 0.7 % (0.5-1.5); DEVICE COMMENT RR, EDDIE,RN; PO2, ARTERIAL BG 46.1 mmHg (83.0-108.0); TEMPERATURE, CELSIUS BG 37.0 CELSIUS (35.5-37.0); VENT MODE, BG BIPAP 12,6 (ROOM AIR)
--- NOTE | 2025-07-11 15:13 | NUR ---
DCP: [facility] met with pt and her daughter/mpoa Neva Stephenson [phone]. Per daughter, pt is O2 dependent and yesterday her O2 concentrator stopped working. This is 2nd machine in 2 months that has stopped working. DME is [employer]. Pt used portable tanks thru the night and in am asked daughter to call 911. Family wanting to switch DME. Pt has 4 kids and takes turn staying with them. pt currently staying with Neva in [place]. Pt is independent of her ADLS, has a walker, shower chair, bsc, concentrator and portable tanks. Pt was at [facility] 2 months ago for 10 days, then discharged to [facility] for 10days. Pt continues out patient PT at [facility] to date. daughter would like pt to go to [facility] at pr. Daughter signed consent for referral to [facility], consent on chart. CM to follow and assist as needed Addendum: 07/11/25 at 1529 by JERMAN MORAN Amended: Links added.
[2025-07-11 15:32] LABS: INR 3.1 (0.85-1.15)
--- NOTE | 2025-07-11 15:47 | NUR ---
SPEECH NOTE: COSMETICS DEMONSTRATOR coordinated with nurse Balderas. Pt currently on BiPAP due to desaturations. Recommend NPO, short term alternate means of nutrition/hydration. COSMETICS DEMONSTRATOR will follow up when patient able to tolerate regular nasal cannula or room air for bedside swallow evaluation. All questions answered. Addendum: 07/11/[address] KILEY ROSA Amended: Links added.
[2025-07-11] MEDS ORDERED: WARFARIN SODIUM 5 MG TAB PO SCH (16:00)
[2025-07-11] MEDS: LIDOCAINE 4% ADH..PATCH TP SCH (16:05)
--- NOTE | 2025-07-11 17:31 | CONS ---
[facility] CONSULTATION NOTE Date Patient Seen: Jul 11, 2025 Time of Visit: 17:04 Supervising Physician: Dr De Jesus Reason for Consultation: ICU medical management Primary Care Physician: [ ] Outpatient Specialists: [ ] Inpatient Consults: [ ] PROBLEM LIST: Acute hypoxemic respiratory failure on BiPAP (FiO? 50%) Tachypnea (RR 41) History of congestive heart failure with mitral valve replacement Atrial fibrillation Advanced pulmonary fibrosis, oxygen dependent Suspected aspiration pneumonia Acute on chronic anemia BINU on chronic kidney disease Sepsis (tachypnea, leukocytosis, fever on presentation) HPI: The patient is an 84-year-old female with a history of mitral valve replacement, chronic congestive heart failure, atrial fibrillation, and advanced pulmonary fibrosis requiring supplemental oxygen at baseline. She presented to the emergency department with progressive shortness of breath and cough. She was hypoxemic on arrival, requiring escalation to BiPAP support. Initial evaluation demonstrated leukocytosis, anemia, BINU, and electrolyte derangements. Chest imaging suggested bilateral pneumonia. Currently, she is awake, alert, and oriented. She remains on BiPAP with FiO? 50% and a respiratory rate of 41. Heart rate is 75, temperature 99.0. She denies chest pain. She continues on antibiotics (cefepime, vancomycin) and is being monitored closely in the ICU. PAST MEDICAL HX: see above PAST SURGICAL HX: noncontributory SOCIAL HISTORY: No tobacco, ETOH, or illicit drug use Coded Allergies: No Known Drug Allergies (Unverified Allergy, Unknown, 08/03/18) REVIEW OF SYSTEMS: 12 point ROS reviewed with patient. Pertinent positives mentioned above. Otherwise negative. PHYSICAL EXAM: GENERAL: alert, weak, awake oriented x 3 HEENT: EOMI, Sclera non icteric, moist mucosa NECK: Supple, no JVD, trachea midline LUNGS: Clear breath sounds bilaterally. No wheezes HEART: Regular rate and rhythm. Normal S1 and S2, without murmurs ABD: Abdomen soft, nontender. Bowel sounds present EXT: No clubbing cyanosis or edema NEURO: Alert and oriented to person, follows commands Vital Signs (last 8hr) Date Time Temp Pulse Resp B/P (MAP) Pulse Ox O2 Delivery O2 Flow Rate FiO2 07/11/25 16:20 90 32 70 07/11/25 15:10 75 41 133/51 96 BIPAP 50 07/11/25 15:09 95 Bi-PAP+ 50 07/11/25 15:00 67 22 134/50 97 BIPAP 50 07/11/25 14:38 99.0 66 25 132/58 97 BIPAP 50 07/11/25 13:58 74 21 50 07/11/25 11:34 50 07/11/25 11:31 87 22 40 07/11/25 10:56 100.2 07/11/25 10:36 65 32 123/48 90 Bi-PAP+ 40 07/11/25 09:40 87 34 07/11/25 09:33 87 34 40 07/11/25 09:13 100.2 68 37 144/51 100 Non-Rebreather+ 15 100 LABS: Hematology Labs: Test 07/11/25 09:05 Range/Units White Blood Count 14.2 H 4.8-10.8 K/uL Red Blood Count 2.67 L 4.00-5.50 MIL/uL Hemoglobin 8.4 L 12.0-16.0 g/dL Hematocrit 28.7 L 36-48 % Mean Corpuscular Volume 107.5 H 79-99 fL Mean Corpuscular Hemoglobin 31.5 27.0-33.0 pg Mean Corpuscular Hemoglobin Concent 29.3 L 32.0-36.0 g/dL Red Cell Distribution Width 17.9 H 11.0-15.5 % Platelet Count 238 130-400 K/uL Mean Platelet Volume 10.7 H 7.5-10.5 fL Immature Granulocyte % (Auto) 0.4 0-1 % Neutrophils (%) (Auto) 84.9 H 40.0-77.0 % Lymphocytes (%) (Auto) 5.6 L 21.0-51.0 % Monocytes (%) (Auto) 8.3 3.0-13.0 % Eosinophils (%) (Auto) 0.6 0.0-8.0 % Basophils (%) (Auto) 0.2 0.0-5.0 % Neutrophils # (Auto) 12.0 H 1.8-7.7 K/uL Lymphocytes # (Auto) 0.8 L 1.0-4.8 K/uL Monocytes # (Auto) 1.2 H 0.1-1.0 K/uL Eosinophils # (Auto) 0.09 0.00-0.70 K/uL Basophils # (Auto) 0.03 0.00-0.20 K/uL Absolute Immature Granulocyte (auto 0.06 0-1 K/uL Nucleated Red Blood Cells 0.4 H 0.0-0.19 % White Cell Morphology Comment CONSISTENT W/DIFF Red Blood Cell Morphology See comments Chemistry Labs: Test 07/11/25 12:50 07/11/25 09:05 Range/Units Lactic Acid Level 1.3 0.8-2.5 mmol/L Sodium Level 140 136-145 mmol/L Potassium Level 5.1 3.5-5.1 mmol/L Chloride Level 102 101-111 mmol/L Carbon Dioxide Level 33 H 21-32 mmol/L Blood Urea Nitrogen 26 H 7-18 mg/dL Creatinine 1.1 H 0.5-1.0 mg/dL Glomerular Filtration Rate Calc 49 >90 mL/min Random Glucose 188 H 70-105 mg/dL Total Calcium 8.9 8.5-10.1 mg/dL Iron Level 60 50-170 mcg/dL Total Iron Binding Capacity 507 H 250-450 mcg/dL Percent Iron Saturation 11.8 L 22-44 % Total Creatine Kinase 73 21-232 U/L Troponin I High Sensitivity 19.1 4-50 ng/L C-Reactive Protein, Quantitative 7.30 H 0.5-3.0 mg/L B-Type Natriuretic Peptide 223 H 0-100 pg/mL Procalcitonin < 0.05 L 0.05-0.5 ng/mL Coagulation Labs: Test 07/11/25 15:11 Range/Units Prothrombin Time 29.4 H 9.6-11.6 SEC Prothromb Time International Ratio 3.10 H 0.85-1.15 Activated Partial Thromboplast Time 44.9 H 26.3-35.5 SEC DIAGNOSTICS / RADIOLOGY RESULTS: [ ] PLAN Continue BiPAP support, monitor ABGs and work of breathing Continue broad-spectrum antibiotics (cefepime, vancomycin) Monitor cultures, adjust antibiotics per sensitivities Replace potassium and magnesium per ICU protocol; recheck labs Monitor H/H, transfuse PRN per hematology (goal Hgb >7.0) Continue CHF and AFib home meds as tolerated (carvedilol, anticoagulation per I NR) Continue aspiration precautions, elevate head of bed 45 Daily labs including CBC, CMP, Mg, Phos DVT prophylaxis GI prophylaxis PT/OT eval once respiratory status stable Case discussed with attending NEURO: Minimize central acting medications as possible. Fall Precautions. Well lighted room through the day and minimize interruptions through the night to prevent acute delirium. PULMONARY: Supplemental 02 as needed Titrate Fio2 to keep Spo2 > or = 90% DuoNebs and CPT as needed IS hourly while awake for pulmonary hygiene Out of bed to chair as tolerated VAP Bundle Vent/BIPAP Settings: [ ] Driving pressure: [ ] P Plat: [ ] Static C: [ ] Static R: [ ] P/F Ratio: [ ] CARDIOVASCULAR: Follow hemodynamics. Titrate vasopressor to keep MAP >65 or systolic blood pressure >95mmHg DIPS: [ ] LINES: [ ] GI & NUTRITION: Continue nutritional support Aspirations precautions Prokinetic agents and laxatives as needed KIDNEYS & ELECTROLYTES: Strict monitoring of intake and output Daily weights Avoid nephrotoxic agents Monitor electrolytes and replace as needed Goal urine output of 30mL/hr or 0.5mL/kg/hr Urine output: [ ] Fluid Balance: [ ] ENDOCRINE: Maintain blood glucose between 100-180 at all times. Insulin sliding scale for blood glucose management INFECTIOUS DISEASE: Trend temperature. Acuña-culture if febrile. Micro: [ ] Antibiotics: [ ] HEMATOLOGY & COAGULATION: Monitor H&H. Keep Hgb > 7 Transfuse 1 unit of PRBC for Hgb < 7 Transfuse 1 pack of platelets of platelets < 20, 000 Watch for any signs and symptoms of bleeding SKIN: Pressure ulcer prevention per facility protocol Rehab: PT/OT Prophylaxis: GI: [ ] DVT: [ ] Code Status: Full Resuscitation Disposition: [ ] Critical care was provided for 63 minutes. This time was required because the patient is critically ill with: Acute hypoxemic respiratory failure requiring non-invasive positive-pressure ventilation and frequent titration of oxygen and BiPAP settings. Sepsis with pneumonia, necessitating close hemodynamic monitoring, broad- spectrum antibiotics, and culture follow-up. Acute on chronic anemia in the setting of CKD and infection, requiring frequent reassessment of hemodynamic stability and coordination with hematology regarding transfusion thresholds. BINU on CKD, which complicates fluid, antibiotic, and electrolyte management. The patient required my continuous presence at the bedside, frequent reassessment of respiratory status, interpretation of labs and imaging, titration of therapy, and coordination with nursing, pharmacy, and respiratory therapy.The patients condition posed an imminent risk of deterioration and without direct physician intervention, therefore qualifying for critical care billing. Case was discussed and seen with my supervising physician. The above plan was formulated and agreed upon. [address] Jul 11, 2025 17:31
--- NOTE | 2025-07-11 17:43 | CONS ---
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 Holly in 2009 with a generator replacement in 07/2018, pulmonary fibrosis on home o2 at 2L via [place], severe mitral regurgitation status post [place] mechanical mitral valve replacement in 07/2011, and a recent 10day hospitalization at [facility] in 06/15/2025 with discharge to a 10 day rehab stay who presented to the ED with complaints of dyspnea. Cardiology has been consulted for CHF. The patient's daughter at bedside was able to assist with HPI, she stated the patient complained of shortness of breath and fatigue for one day in duration. BNP 223. Chest x-ray demonstrated right upper lobe pneumonia, pulmonary vascular congestion, cardiomegaly, and an elevated right hemidiaphragm. She does recall the patient choking on food and drink before. 2D echo on 07/11/2025 with an LVEF 55-60% stage II diastolic dysfunction a severely dilated left atrium, moderately dilated right atrium, mild aortic stenosis, mitral valve prosthesis with prosthetic peak of 14mmHg and mean of 4mmHg, and moderate tricuspid regurgitation with an RVSP of 52mmHg. The patient is currently on Bipap support. Past Medical History: As per HPI and summarized Past Surgical History: Conduction system disease status post Guidant permanent pacemaker implanted in 2007 with upgrade to a dual-chamber device by Dr. Holly in 2009 with a generator replacement in 07/2018 Severe mitral regurgitation status post [place] mechanical mitral valve replacement in 07/2011 Family History: Noncontributory Social History: The patient lives with her daughter Habits: The patient does not use alcohol, tobacco or illicit drugs. Home Meds: Carvedilol 3.125 mg b.i.d. Losartan 50 mg daily Lasix 40 mg b.i.d. Potassium chloride 20 mEq daily Atorvastatin 10 mg q.h.s. Warfarin 5 mg MWF, 2.5 mg TTS Allopurinol 100 mg daily Current Meds: Medications Dose Ordered Sig/Macey Start Time Stop Time Status Last Admin Lactulose 20 gm BID PRN 07/11/25 11:00 08/10/25 10:59 Pantoprazole Sodium 40 mg BID 07/11/25 21:00 08/10/25 20:59 Acetaminophen 650 mg Q4H PRN 07/11/25 11:00 08/10/25 10:59 Albuterol 1 UDVIAL Q6H PRN 07/11/25 11:00 08/10/25 10:59 Cefepime HCl 2 gm Q24H 07/11/25 11:00 07/21/25 10:59 07/11/25 13:07 Potassium Chloride 100 ml @ 100 mls/hr AD PRN 07/11/25 11:30 08/10/25 11:29 Potassium Chloride 20 meq AD PRN 07/11/25 11:30 08/10/25 11:29 Potassium Chloride 20 meq AD PRN 07/11/25 11:30 08/10/25 11:29 Magnesium Sulfate 50 ml @ 0 mls/hr PROTOCOL PRN 07/11/25 11:30 08/10/25 11:29 Furosemide 40 mg Q12H 07/11/25 21:00 08/10/25 20:59 Carvedilol 3.125 mg BID 07/11/25 21:00 08/10/25 20:59 Losartan Potassium 25 mg DAILY 07/12/25 09:00 08/11/25 08:59 Atorvastatin Calcium 10 mg HS 07/11/25 21:00 08/10/25 20:59 Docusate Sodium 100 mg BID PRN 07/11/25 12:00 08/10/25 11:59 Folic Acid 1 mg DAILY 07/12/25 09:00 08/11/25 08:59 Ferrous Sulfate 325 mg DAILY 07/12/25 09:00 08/11/25 08:59 Doxycycline Hyclate 100 mg BID 07/11/25 21:00 07/21/25 20:59 Acetaminophen 650 mg Q6H PRN 07/11/25 15:30 08/10/25 15:29 07/11/25 15:31 Lidocaine 1 each Q24H 07/11/25 16:00 08/10/25 15:59 07/11/25 16:05 Allopurinol 50 mg Q48H 07/12/25 09:00 08/11/25 08:59 Review of Systems: Unable to obtain a review of systems as the patient is lethargic Physical Examination: GENERAL: No acute distress. On BiPAP therapy 09/24 with FiO2 at 70% HEAD: Normal with no signs of head trauma. EYES: Conjunctiva and sclera normal. ENT: Unable to assess area NECK: Supple without JVD. Normal carotid upstrokes without bruits. LUNGS: Diminished breath sounds bilaterally. HEART: Normal rate and rhythm. Normal S1 and S2 without murmurs, gallop or rub. VASC: Peripheral pulses +2 bilaterally. ABD: Bowel sounds normal, soft, nontender, no masses, no organomegaly. No audible bruits. : Cantu catheter draining yellow urine. LYMPH: No lymphadenopathy noted. EXT: No clubbing, cyanosis or edema. SKIN: Varicose veins to BLE. NEURO: Lethargic. Vital Signs (last 8hr) Date Time Temp Pulse Resp B/P (MAP) Pulse Ox O2 Delivery O2 Flow Rate FiO2 07/11/25 16:20 90 32 70 07/11/25 15:10 75 41 133/51 96 BIPAP 50 07/11/25 15:09 95 Bi-PAP+ 50 07/11/25 15:00 67 22 134/50 97 BIPAP 50 07/11/25 14:38 99.0 66 25 132/58 97 BIPAP 50 07/11/25 13:58 74 21 50 07/11/25 11:34 50 07/11/25 11:31 87 22 40 07/11/25 10:56 100.2 07/11/25 10:36 65 32 123/48 90 Bi-PAP+ 40 07/11/25 09:40 87 34 07/11/25 09:33 87 34 40 07/11/25 09:13 100.2 68 37 144/51 100 Non-Rebreather+ 15 100 Laboratory: Hematology Labs: Test 07/11/25 09:05 Range/Units White Blood Count 14.2 H 4.8-10.8 K/uL Red Blood Count 2.67 L 4.00-5.50 MIL/uL Hemoglobin 8.4 L 12.0-16.0 g/dL Hematocrit 28.7 L 36-48 % Mean Corpuscular Volume 107.5 H 79-99 fL Mean Corpuscular Hemoglobin 31.5 27.0-33.0 pg Mean Corpuscular Hemoglobin Concent 29.3 L 32.0-36.0 g/dL Red Cell Distribution Width 17.9 H 11.0-15.5 % Platelet Count 238 130-400 K/uL Mean Platelet Volume 10.7 H 7.5-10.5 fL Immature Granulocyte % (Auto) 0.4 0-1 % Neutrophils (%) (Auto) 84.9 H 40.0-77.0 % Lymphocytes (%) (Auto) 5.6 L 21.0-51.0 % Monocytes (%) (Auto) 8.3 3.0-13.0 % Eosinophils (%) (Auto) 0.6 0.0-8.0 % Basophils (%) (Auto) 0.2 0.0-5.0 % Neutrophils # (Auto) 12.0 H 1.8-7.7 K/uL Lymphocytes # (Auto) 0.8 L 1.0-4.8 K/uL Monocytes # (Auto) 1.2 H 0.1-1.0 K/uL Eosinophils # (Auto) 0.09 0.00-0.70 K/uL Basophils # (Auto) 0.03 0.00-0.20 K/uL Absolute Immature Granulocyte (auto 0.06 0-1 K/uL Nucleated Red Blood Cells 0.4 H 0.0-0.19 % White Cell Morphology Comment CONSISTENT W/DIFF Red Blood Cell Morphology See comments Chemistry Labs: Test 07/11/25 12:50 07/11/25 09:05 Range/Units Lactic Acid Level 1.3 0.8-2.5 mmol/L Sodium Level 140 136-145 mmol/L Potassium Level 5.1 3.5-5.1 mmol/L Chloride Level 102 101-111 mmol/L Carbon Dioxide Level 33 H 21-32 mmol/L Blood Urea Nitrogen 26 H 7-18 mg/dL Creatinine 1.1 H 0.5-1.0 mg/dL Glomerular Filtration Rate Calc 49 >90 mL/min Random Glucose 188 H 70-105 mg/dL Total Calcium 8.9 8.5-10.1 mg/dL Iron Level 60 50-170 mcg/dL Total Iron Binding Capacity 507 H 250-450 mcg/dL Percent Iron Saturation 11.8 L 22-44 % Total Creatine Kinase 73 21-232 U/L Troponin I High Sensitivity 19.1 4-50 ng/L C-Reactive Protein, Quantitative 7.30 H 0.5-3.0 mg/L B-Type Natriuretic Peptide 223 H 0-100 pg/mL Procalcitonin < 0.05 L 0.05-0.5 ng/mL Coagulation Labs: Test 07/11/25 15:11 Range/Units Prothrombin Time 29.4 H 9.6-11.6 SEC Prothromb Time International Ratio 3.10 H 0.85-1.15 Activated Partial Thromboplast Time 44.9 H 26.3-35.5 SEC Diagnostics / Radiology: 2D echocardiogram 07/11/2025 Conclusion LVEF is 55-60%. Stage II diastolic dysfunction. The right ventricle is moderately dilated. The left atrium is severely dilated. There is mild aortic valvular stenosis. Pk G 13mmHg. mean G 8mmHg and AoV area 1.5cm2 Mitral valve prosthesis is not well visualized. Peak gradient 14mmHg, with mean gradient 4mmHg. Moderate tricuspid valve regurgitation noted. RVSP 52mmHg. 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 Holly in 2009 with a gen erator replacement in 07/2018 Pulmonary fibrosis on home o2 at 2L via [place] Severe mitral regurgitation status post [place] mechanical mitral valve replacement in 07/2011 Recent 10 day hospitalization at [facility] in 06/15/2025 with discharge to a 10 day rehab stay Diastolic dysfunction BNP 223 Chest x-ray demonstrated right upper lobe pneumonia, pulmonary vascular congestion, cardiomegaly, and an elevated right hemidiaphragm 2D echo on 07/11/2025 with an LVEF 55-60% with stage II diastolic dysfunction -Okay to continue Lasix 40mg IV bid Severe mitral regurgitation status post [place] mechanical mitral valve replacement in 07/2011 Mitral valve prosthesis opens well on 2D Echo done 07/11/2025 INR goal of 2.5-3.5 -The patient is NPO pending a speech evaluation to assess for aspiration -INR of 3.1 today, obtain daily PT/INR -If tomorrow's INR is subtherapeutic, plan to start Heparin infusion DAYAMI BHATIA CIRCULATOR Jul 11, 2025 17:43
--- NOTE | 2025-07-11 18:24 | HMCIMG ---
EXAM: US Duplex Right Lower Extremity Veins. CLINICAL HISTORY: 84 year old female with swelling. TECHNIQUE: Real-time ultrasound scan of the veins of the right lower extremity with color Doppler flow, spectral waveform analysis and compression. COMPARISON: None provided. FINDINGS: DEEP VEINS: The common femoral, femoral, and popliteal veins are echolucent and compressible. These vessels demonstrate respiratory variation and augmentation. There is normal color Doppler flow throughout. The visualized calf veins are also patent. Pulsatile flow is noted. SUPERFICIAL VEINS: The visualized greater saphenous vein is patent. SOFT TISSUES: No popliteal fossa cyst or other abnormalities, but there is swelling noted in the right leg. IMPRESSION: 1. No deep venous thrombosis in the right lower extremity. EXAM: US Duplex Left Lower Extremity Veins. CLINICAL HISTORY: 84 year old female with swelling. TECHNIQUE: Real-time ultrasound scan of the veins of the left lower extremity with color Doppler flow, spectral waveform analysis and compression. COMPARISON: None provided. FINDINGS: DEEP VEINS: The common femoral, femoral, and popliteal veins are echolucent and compressible. These vessels demonstrate respiratory variation and augmentation. There is normal color Doppler flow throughout. The visualized calf veins are also patent. SUPERFICIAL VEINS: The visualized greater saphenous vein is patent. SOFT TISSUES: No popliteal fossa cyst or other abnormalities, but there is notable swelling in the left leg. Additionally, pulsatile flow was noted in the left leg. IMPRESSION: 1. No deep venous thrombosis in the left lower extremity. /Rose
[2025-07-11] MEDS: DOXYCYCLINE HYCLATE 100 MG TABLET PO SCH (20:03)
--- NOTE | 2025-07-11 20:56 | CONS ---
MADELIN MYERS MD 07/11/252055: CONSULT REASON FOR CONSULT: Anemia HISTORY HPI: HPI: The patient is an 84-year-old female with a history of mitral valve replacement, chronic congestive heart failure, atrial fibrillation, and advanced pulmonary fibrosis requiring supplemental oxygen at baseline. She presented to the emergency department with progressive shortness of breath and cough. She was hypoxemic on arrival, requiring escalation to BiPAP support. Initial evaluation demonstrated leukocytosis, anemia, BINU, and electrolyte derangements. Chest im aging suggested bilateral pneumonia. 07/11 Patient seen and examined at bedside. She is awake, alert, oriented and on BIPAP treatment. Chest xray demonstrates right upper lobe pneumonia possibly from aspiration. 2D echo on 07/11/2025 with an LVEF 55-60% stage II diastolic dysfunction a severely dilated left atrium, moderately dilated right atrium, mild aortic stenosis, mitral valve prosthesis with prosthetic peak of 14mmHg and mean of 4mmHg, and moderate tricuspid regurgitation with an RVSP of 52mmHg. On blood smear we see rouleau phenomenon. Direct Antonino negative. We will order an anemia panel and SPEP and free light chains. PMH: CHF mitral valve replacement, AFib PSH: CABG, mitral valve replacement SH: Denies smoking tobacco products and alcohol use. FH: Noncontributory ALLERGIES: Coded Allergies: No Known Drug Allergies (Unverified Allergy, Unknown, 08/03/18) CURRENT MEDS: Current Medications Medications (Trade) Dose Ordered Sig/Macey Route PRN Reason Start Time Stop Time Status Last Admin Lactulose (Constulose 20gm/ 30ml Udcup) 20 gm BID PRN PO CONSTIPATION 07/11/25 11:00 08/10/25 10:59 Pantoprazole Sodium (PROTonix 40MG INJ) 40 mg BID IVP 07/11/25 21:00 08/10/25 20:59 07/11/25 20:03 Acetaminophen (TYLenol 325MG TAB) 650 mg Q4H PRN PO TEMPERATURE GREATER THAN 101.5 07/11/25 11:00 08/10/25 10:59 07/11/25 20:03 Albuterol (DUOneb) 1 UDVIAL Q6H PRN IH SHORTNESS OF BREATH 07/11/25 11:00 08/10/25 10:59 07/11/25 18:41 Cefepime HCl (MAXipime 2 gm vial) 2 gm Q24H IVPB 07/11/25 11:00 07/21/25 10:59 07/11/25 13:07 Potassium Chloride 100 ml @ 100 mls/hr AD PRN IV POTASSIUM PROTOCOL 07/11/25 11:30 08/10/25 11:29 Potassium Chloride (KCl 10% Elixir 20meq/15ml) 20 meq AD PRN PO POTASSIUM PROTOCOL 07/11/25 11:30 08/10/25 11:29 Potassium Chloride (K-Dur/Klor-Con 20meq) 20 meq AD PRN PO POTASSIUM PROTOCOL 07/11/25 11:30 08/10/25 11:29 Magnesium Sulfate 50 ml @ 0 mls/hr PROTOCOL PRN IV low mag level 07/11/25 11:30 08/10/25 11:29 Furosemide (LASix 40MG VIAL) 40 mg Q12H IV 07/11/25 21:00 08/10/25 20:59 07/11/25 20:03 Carvedilol (Coreg 3.125MG) 3.125 mg BID PO 07/11/25 21:00 08/10/25 20:59 Losartan Potassium (CozAAR 25MG TAB) 25 mg DAILY PO 07/12/25 09:00 08/11/25 08:59 Atorvastatin Calcium (LIPItor 10MG) 10 mg HS PO 07/11/25 21:00 08/10/25 20:59 07/11/25 20:03 Docusate Sodium (COLace 100MG CAP) 100 mg BID PRN PO CONSTIPATION 07/11/25 12:00 08/10/25 11:59 Folic Acid (FOLic ACID 1 MG TABLET) 1 mg DAILY PO 07/12/25 09:00 08/11/25 08:59 Ferrous Sulfate (Ferrous Sulfate) 325 mg DAILY PO 07/12/25 09:00 08/11/25 08:59 Doxycycline Hyclate (Doxycycline Hyclate) 100 mg BID PO 07/11/25 21:00 07/21/25 20:59 07/11/25 20:03 Acetaminophen (TYLenol 325MG TAB) 650 mg Q6H PRN PO MILD PAIN (1-3) 07/11/25 15:30 08/10/25 15:29 07/11/25 15:31 Lidocaine (Lidocaine Patch 4%) 1 each Q24H TP 07/11/25 16:00 08/10/25 15:59 07/11/25 16:05 Allopurinol (ZYLOprim 100MG) 50 mg Q48H PO 07/12/25 09:00 08/11/25 08:59 REVIEW OF SYSTEMS RESPIRATORY: SHORTNESS OF BREATH PHYSICAL EXAM VITALS: Vital Signs Date Time Temp Pulse Resp B/P (MAP) Pulse Ox O2 Delivery O2 Flow Rate FiO2 07/11/25 20:17 91/44 07/11/25 20:03 99.9 07/11/25 18:57 88 34 07/11/25 18:44 50 07/11/25 18:10 94 BIPAP 07/11/25 09:13 15 GENERAL: ALERT, ORIENTED EYES: PUPILS EQUAL/REACTIVE, EXTRAOCULAR MUSCLES INTCT RESPIRATORY: LUNGS CLEAR-AUSC/PERCUS CARDIOVASCULAR: REGULAR RATE, REGULAR RHYTHM NEUROLOGICAL: GROSSLY INTACT DIAGNOSTIC STUDIES PATIENT: PK BATEMAN MR#: [id number] : 1940 SEX: F AGE: 84 LOCATION: 2CH ORDER 1155 STATUS: ADM IN REPORT#: [id number] SERVICE 1147 REASON: swelling to lower ext ORDERING PHYSICIAN: BROCK KWAN NP PROCEDURE: VENOUS LUCIA - US VENOUS DOPPLER BILATERAL EXAM: US Duplex Right Lower Extremity Veins. CLINICAL HISTORY: 84 year old female with swelling. TECHNIQUE: Real-time ultrasound scan of the veins of the right lower extremity with color Doppler flow, spectral waveform analysis and compression. COMPARISON: None provided. FINDINGS: DEEP VEINS: The common femoral, femoral, and popliteal veins are echolucent and compressible. These vessels demonstrate respiratory variation and augmentation. There is normal color Doppler flow throughout. The visualized calf veins are also patent. Pulsatile flow is noted. SUPERFICIAL VEINS: The visualized greater saphenous vein is patent. SOFT TISSUES: No popliteal fossa cyst or other abnormalities, but there is swelling noted in the right leg. IMPRESSION: 1. No deep venous thrombosis in the right lower extremity. EXAM: US Duplex Left Lower Extremity Veins. CLINICAL HISTORY: 84 year old female with swelling. TECHNIQUE: Real-time ultrasound scan of the veins of the left lower extremity with color Doppler flow, spectral waveform analysis and compression. COMPARISON: None provided. FINDINGS: DEEP VEINS: The common femoral, femoral, and popliteal veins are echolucent and compressible. These vessels demonstrate respiratory variation and augmentation. There is normal color Doppler flow throughout. The visualized calf veins are also patent. SUPERFICIAL VEINS: The visualized greater saphenous vein is patent. SOFT TISSUES: No popliteal fossa cyst or other abnormalities, but there is notable swelling in the left leg. Additionally, pulsatile flow was noted in the left leg. IMPRESSION: 1. No deep venous thrombosis in the left lower extremity. /[place] DICTATED BY: TIEN NEVILLE MD DATE: 07/11/251922 ELECTRONICALLY SIGNED BY: TIEN NEVILLE MD DATE: 07/11/251922 PATIENT: PK BATEMAN MR#: [id number] : 1940 SEX: F AGE: 84 LOCATION: [facility] ORDER 1104 STATUS: ADM IN REPORT#: [id number] SERVICE 1101 REASON: chf ORDERING PHYSICIAN: BROCK KWAN NP PROCEDURE: ECHO CMP - ECHO 2-D COMPLETE APPROVED REPORT EXAM: Two-dimensional and M-mode echocardiogram with Doppler and color Doppler. INDICATION ICD: Congestive heart failure 2D Dimensions RVDd 4.6 cm LVEF(%) 61.1 (>50%) LVED Vol(simp.) 85.0 mL IVSd 0.6 (0.7-1.1cm) FS(%) 33 % LVES Vol(simp.) 38.0 mL LVDd 4.7 (3.8-5.6cm) LA (2D) 6.0 (1.6-4.0cm) LVEF(%, simp.) 56 % PWd 0.9 (0.7-1.1cm) Ao Root(2D) 3.3 (2.0-3.7cm) LA ESV INDEX (BP) 63.74 mL/m2 IVSs 1.0 cm LVOT diam 2.0 (1.8-2.4cm) LVDs 3.2 (2.5-4.0cm) IVC diam 2.2 cm PWs 1.4 cm Deformation Strain Apical 4 -12.5 % Apical 2 -16.0 % Apical 3 -13.3 % Global Strain -13.9 % M-Mode Dimensions LA (MM) 6.2 (1.6-4.0cm) Ao Root(MM) 2.7 (2.0-3.7cm) Aortic Valve AoV Vmax 1.8 m/s Ao Peak GR 12.7 mmHg LVOT Vmax 0.9 m/s AoV VTI 0.3 m Ao Mean GR 8.2 mmHg LVOT VTI 0.17 m VINCENZO (VMAX) 1.47 cm2 VINCENZO (VTI) 1.5 cm2 Mitral Valve MV E Vmax 175.6 cm/s DECEL Time 240 ms MV Peak GR 14 mmHg P 1/2 T 69 ms MV Mean GR 4 mmHg MVA (PHT) 3.2 cm2 MVA (VTI) 1.35 cm2 TDI E/E' Medial 35.8 E/E' Lateral 29.0 Medial E' Peak V 4.91 cm/s Lateral E' Peak V 6.06 cm/s Pulmonary Valve PV Vmax 0.8 m/s PV VTI 0.16 m PV Mean GR 1.7 mmHg PV Peak GR 2.7 mmHg PI End Naila. Rodríguez 82.2 cm/s Tricuspid Valve TR Vmax 3.0 m/s RAP (EST) 15 mmHg RVSP 52.2 mmHg TR Peak GR 37.2 mmHg Left Ventricle The left ventricle is normal size. GLS -14.0% There is normal left ventricular wall thickness. LVEF is 55-60%. Stage II diastolic dysfunction. Right Ventricle The right ventricle is moderately dilated. The right ventricular systolic function is normal. Atria The left atrium is severely dilated. The right atrium is moderately dilated. Aortic Valve Aortic valve is trileaflet. Aortic valve annular calcification noted. No aortic regurgitation is present. There is mild aortic valvular stenosis. Pk G 13mmHg. mean G 8mmHg and AoV area 1.5cm2 Mitral Valve Mitral valve prosthesis is not well visualized. There is trace of mitral valve regurgitation noted. Prosthetic valve Pk G 14mmHg, with mean gradient 4mmHg. Tricuspid Valve The tricuspid valve is normal in structure. There is moderate tricuspid valve regurgitation noted. RVSP 52mmHg. Pulmonic Valve The pulmonary valve is normal in structure. There is trace of pulmonic valvular regurgitation. Great Vessels The aortic root is normal in size. IVC is dilated and collapses <50% with inspiration. Pericardium There is no pericardial effusion. Other Information Quality : Technically difficult study due to body habitus Rhythm : NSR Conclusion LVEF is 55-60%. Stage II diastolic dysfunction. The right ventricle is moderately dilated. The left atrium is severely dilated. There is mild aortic valvular stenosis. Pk G 13mmHg. mean G 8mmHg and AoV area 1.5cm2 Mitral valve prosthesis is not well visualized. Peak gradient 14mmHg, with mean gradient 4mmHg. Moderate tricuspid valve regurgitation noted. RVSP 52mmHg. DICTATED BY: BILL DOSHI DO DATE: 07/11/25 114 ELECTRONICALLY SIGNED BY: BILL DOSHI DO DATE: 07/11/25 122 PATIENT: PK BATEMAN MR#: [id number] : 1940 SEX: F AGE: 84 LOCATION: [facility] ORDER STATUS: [facility] REPORT#: [id number] SERVICE 0854 REASON: Dyspnea/SOB ORDERING PHYSICIAN: RUBEN BARTLETT DO PROCEDURE: CXR1VW - CHEST 1VW EXAM: CR Chest, 1 View. CLINICAL HISTORY: Dyspnea/SOB COMPARISON: Radiograph dated September 20, 2003. FINDINGS: Right upper lobe pneumonia. No pleural effusion or pneumothorax. Elevation of the right hemidiaphragm. Prior aortic valve replacement. Pacer leads overlying the right atrium and right ventricle. There is mild cardiomegaly and pulmonary vascular congestion. IMPRESSION: 1. Right upper lobe pneumonia. 2. Mild cardiomegaly and pulmonary vascular congestion. 3. Elevated right hemidiaphragm. /[place] DICTATED BY: DOROTHY THORNTON Jr., MD DATE: 07/11/25 104 ELECTRONICALLY SIGNED BY: DOROTHY THORNTON Jr., MD DATE: 07/11/25 1043 IMPRESSION Acute hypoxemic respiratory failure on BiPAP (FiO? 50%) Tachypnea (RR 41) History of congestive heart failure with mitral valve replacement Atrial fibrillation Advanced pulmonary fibrosis, oxygen dependent Suspected aspiration pneumonia Acute on chronic anemia BINU on chronic kidney disease Sepsis (tachypnea, leukocytosis, fever on presentation) PLAN Continue BiPAP support, monitor ABGs and work of breathing Continue broad-spectrum antibiotics (cefepime, vancomycin) Monitor cultures, adjust antibiotics per sensitivities Replace potassium and magnesium per ICU protocol; recheck labs Monitor H/H, transfuse PRN per hematology (goal Hgb >7.0) Continue CHF and AFib home meds as tolerated (carvedilol, anticoagulation per IN R) Continue aspiration precautions, elevate head of bed 45 Daily labs including CBC, CMP, Mg, Phos DVT prophylaxis GI prophylaxis LYDIA PAUL MD 07/13/252056: PLAN I attest that I was physically present to evaluate the patient and I reviewed and discussed the case with the Resident and agree with the Resident's findings and plans of care as documented above with modifications. Case discussed with resident on the date stated at the beginning of note. Patient was first seen and evaluated by me during this hospitalization. MADELIN MYERS MD Jul 11, 2025 20:56 LYDIA PAUL MD Jul 13, 2025 20:57
[2025-07-12] VITALS (60 sets, daily range): BP systolic 86–123; BP diastolic 27–95; PULSE 62–92; RESP 9–48; TEMP 98.1–99; O2SAT 93–100
[2025-07-12 03:04] LABS: ABG BASE EXCESS 3.8 mmol/L (-2.0-3.0); ABG HCO3 31.9 mmol/L (21.0-28.0); ABG OXYGEN SATURATION 98.5 % (94.0-98.0); CARBON MONOXIDE 0.7 % (0.5-1.5); PO2, ARTERIAL BG 138.3 mmHg (83.0-108.0); TEMPERATURE, CELSIUS BG 37.0 CELSIUS (35.5-37.0); VENT MODE, BG BIPAP 12-6 (ROOM AIR)
[2025-07-12 03:47] LABS: IMMATURE GRANULOCYTE ABSOLUTE 1.17 K/uL (0-1); NUCLEATED RED BLOOD CELLS 0.0 % (0.0-0.19); PLATELET COUNT (AUTO) 191 K/uL (130-400); RED BLOOD CELL COUNT(AUTO) 2.46 MIL/uL (4.00-5.50); RED CELL DISTRIBUTION WIDTH 18.2 % (11.0-15.5); WHITE BLOOD COUNT (AUTO) 29.9 K/uL (4.8-10.8)
[2025-07-12 04:06] LABS: INR 3.23 (0.85-1.15)
[2025-07-12 04:27] LABS: SODIUM SERUM 141 mmol/L (136-145); UREA NITROGEN, BLOOD 27 mg/dL (7-18)
[2025-07-12 04:28] LABS: CREATININE 1.3 mg/dL (0.5-1.0); GLOMERULAR FILTR. RATE CALC 40 mL/min (>90); GLUCOSE,RANDOM 109 mg/dL (70-105); TOTAL PROTEIN, SERUM 6.6 g/dL (6.0-8.3)
[2025-07-12 04:29] LABS: ASPARTATE AMINOTRANSFERASE 35 U/L (10-37)
[2025-07-12 05:29] LABS: ABG PCO2 72 mmHg (32-45)
[2025-07-12 05:30] LABS: ABG PH 7.267 (7.350-7.450)
[2025-07-12 05:38] LABS: % IRON SATURATION 3.8 % (22-44); IRON, SERUM 16 mcg/dL (50-170)
[2025-07-12] MEDS: FERROUS SULFATE 325 MG TABLET.DR PO SCH (07:40)
--- NOTE | 2025-07-12 07:53 | PN ---
[facility] Cardiology Progress Note CARDIOLOGY PROGRESS NOTE 2024 Problems: 1. Acute respiratory failure with BNP of 223, probably normal for age 2. Right upper lobe pneumonia 3. Sepsis 4. Mitral regurgitation status post [place] mechanical mitral valve replacement July 2011 with normal coronary arteries at that time with LV ejection fraction of 55-60% and grade diastolic left ventricular dysfunction by echo this admission 5. Persistent atrial fibrillation 6. Chronic anticoagulation with warfarin 7. AV node ablation 2008 8. 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 Acute on chronic kidney disease stage IIIB The patient had a recent hospitalization at [facility]. She presents back with shortness of breath and was found to have a right upper lobe pneumonia. Brain natriuretic peptide level [id number] probably normal for her age. Blood pressure is running 90-98 systolic. Heart [place] 70[place] [id number] hemoglobin 7.9 platelet count [id number]. Potassium 4.9 BUN 27 creatinine 1.3 Estimated GFR of 40 INR of 3.2. The patient continues on atorvastatin carvedilol ferrous sulfate folic acid antibiotics furosemide 40 mg q.12 hours losartan 25 mg daily pantoprazole 40 mg daily and potassium protocol. The patient has prosthetic valve appears to be well-seated. There was no evidence of significant valvular or paravalvular leak. Trace MR was consistent with the mechanical valve. Mean gradient of 4 mm Hg. Chest x-ray shows persistent right upper lobe infiltrate. Post sternotomy changes. No significant effusions. The patient is retaining some CO2 and her CPAP regimen has been modified. Clinically there was no heart failure. As noted her BNP was probably normal for age. I am concerned about her rising creatinine would suggest we switch back to her home dose of oral furosemide 40 mg b.i.d. and observe. INR is 3.2. Goal for her mechanical valve would be 2-1/2 to 3-1/2. We will plan on restarting her warfarin at a reduced dose and monitor her INRs. MOR RED MD Jul 12, 2025 07:53
--- NOTE | 2025-07-12 08:28 | HMCIMG ---
EXAM: CR Chest, 1 View. CLINICAL HISTORY: SOB COMPARISON: Yesterday. FINDINGS: LUNGS: Right upper lobe consolidation could represent pneumonia in the correct clinical setting. Follow-up to resolution recommended to exclude alternative pathology. PLEURAL SPACES: No evidence of pleural effusion or pneumothorax. MEDIASTINUM: The cardiomediastinal silhouette is within normal limits. BONES: No aggressive appearing osseous lesion seen. MISCELLANEOUS: Left-sided pacemaker. Valve replacement. Surgical clips overlie the left breast. IMPRESSION: 1. Right upper lobe consolidation, possibly representing pneumonia. 2. Left-sided pacemaker. 3. Valve replacement. 4. Surgical clips overlying the left breast. 5. Follow-up imaging recommended to ensure resolution of consolidation. /[place]
[2025-07-12] MEDS ORDERED: WARFARIN SODIUM 2.5 MG TAB PO SCH (09:00)
--- NOTE | 2025-07-12 09:36 | PN ---
[facility] PROGRESS NOTE Date Patient Seen: Jul 12, 2025 Time of Visit: 09:36 Supervising Physician: REZA ARMSTRONG MD Primary Care Physician: JOVANNA ARMENTA Outpatient Specialists: Inpatient Consults: DR LELO HYMAN ATTENDING PHYSICIAN: YUMIKO PROBLEM LIST: Acute hypoxemic respiratory failure on BiPAP Tachypnea (RR 41) History of congestive heart failure with mitral valve replacement Atrial fibrillation Advanced pulmonary fibrosis, oxygen dependent Right upper lobe pneumoniae, POA suspected aspiration Acute on chronic anemia BINU on chronic kidney disease Pulmonary Fibrosis Sepsis (tachypnea, leukocytosis, fever on presentation) INTERVAL HISTORY: Chart reviewed including all laboratory and imaging results. Patient assessed at bedside. She is awake alert and oriented x3. Currently on BiPAP. Blood gases 7.29, pCO2 of 65 PO2 of 99.1 and bicarb of 31. Change settings to AVAPS with tidal volumes of 450, peep of six, T-max of 30 P min of 15. Urine output one L with a balance of-898 mL. Denies chest pain, palpitation, but does report shortness for breath. Hemodynamically stable. Not on any pressors.No major overnight events reported. White count 29.9 higher than yesterday. Hemoglobin of 7 0.9/26.4 with a platelet count of 191 K. Reticular count of 4.55 immature reticular fraction 31.50. On chemistry carbon dioxide 38 BUN 27 creatinine of 1.3 GFR of 40 glucose 109 mg/dL lactic acid trended down 1.3. Folic acid greater than 20 BNP 1150, protocol 4.20. Antibiotics have changed from cefepime to Zosyn per ID. Currently positive blood cultures 2/2 with a Gram-negative rods. REVIEW OF SYSTEMS: 12 point ROS reviewed with patient. Pertinent positives mentioned above. Otherwise negative. PHYSICAL EXAM: GENERAL: alert, weak, awake oriented x 3 HEENT: EOMI, Sclera non icteric, moist mucosa NECK: Supple, no JVD, trachea midline LUNGS: Diminished breath sounds bilaterally. No wheezes HEART: Regular rate and rhythm. Normal S1 and S2, without murmurs ABD: Abdomen soft, nontender. Bowel sounds present EXT: No clubbing cyanosis or edema NEURO: Alert and oriented to person, follows commands Vital Signs (last 8hr) Date Time Temp Pulse Resp B/P (MAP) Pulse Ox O2 Delivery O2 Flow Rate FiO2 07/12/25 09:26 75 26 40 07/12/25 08:10 64 16 108/46 100 BIPAP 40 07/12/25 08:00 98.6 65 21 111/43 99 BIPAP 40 07/12/25 07:00 70 21 102/38 99 BIPAP 40 07/12/25 06:45 74 28 07/12/25 06:42 74 28 40 07/12/25 06:00 64 18 89/41 97 BIPAP 40 07/12/25 05:30 72 23 98/59 86 40 07/12/25 05:19 63 27 35 07/12/25 05:00 67 21 90/40 95 BIPAP 40 07/12/25 04:30 65 24 86/40 94 BIPAP 40 07/12/25 04:29 75 26 35 07/12/25 04:00 99.0 65 20 105/40 96 BIPAP 50 07/12/25 04:00 95 Bi-PAP+ 50 07/12/25 03:30 63 21 107/44 96 BIPAP 50 07/12/25 03:00 80 18 101/47 98 BIPAP 50 07/12/25 02:59 66 26 50 07/12/25 02:30 63 21 105/45 97 BIPAP 50 07/12/25 02:00 77 20 101/49 99 BIPAP 50 LABS: Hematology Labs: Test 07/12/25 03:37 07/11/25 09:05 Range/Units White Blood Count 29.9 #H 4.8-10.8 K/uL Red Blood Count 2.46 L 4.00-5.50 MIL/uL Hemoglobin 7.9 L 12.0-16.0 g/dL Hematocrit 26.4 L 36-48 % Mean Corpuscular Volume 107.3 H 79-99 fL Mean Corpuscular Hemoglobin 32.1 27.0-33.0 pg Mean Corpuscular Hemoglobin Concent 29.9 L 32.0-36.0 g/dL Red Cell Distribution Width 18.2 H 11.0-15.5 % Platelet Count 191 130-400 K/uL Mean Platelet Volume 10.1 7.5-10.5 fL Immature Granulocyte % (Auto) 3.9 H 0-1 % Neutrophils (%) (Auto) 85.7 H 40.0-77.0 % Lymphocytes (%) (Auto) 3.7 L 21.0-51.0 % Monocytes (%) (Auto) 6.3 3.0-13.0 % Eosinophils (%) (Auto) 0.1 0.0-8.0 % Basophils (%) (Auto) 0.3 0.0-5.0 % Neutrophils # (Auto) 25.6 H 1.8-7.7 K/uL Lymphocytes # (Auto) 1.1 1.0-4.8 K/uL Monocytes # (Auto) 1.9 H 0.1-1.0 K/uL Eosinophils # (Auto) 0.04 0.00-0.70 K/uL Basophils # (Auto) 0.09 0.00-0.20 K/uL Absolute Immature Granulocyte (auto 1.17 H 0-1 K/uL Nucleated Red Blood Cells 0.0 0.0-0.19 % Reticulocyte Count (auto) 4.70973 H 0.42-2.23 % Immature Reticulocyte Fraction 31.50 H 0.18-0.48 % White Cell Morphology Comment CONSISTENT W/DIFF Red Blood Cell Morphology See comments Chemistry Labs: Test 07/12/25 03:37 07/11/25 12:50 07/11/25 09:05 Range/Units Sodium Level 141 136-145 mmol/L Potassium Level 4.9 3.5-5.1 mmol/L Chloride Level 103 101-111 mmol/L Carbon Dioxide Level 38 H 21-32 mmol/L Blood Urea Nitrogen 27 H 7-18 mg/dL Creatinine 1.3 H 0.5-1.0 mg/dL Glomerular Filtration Rate Calc 40 >90 mL/min Random Glucose 109 H 70-105 mg/dL Total Calcium 8.3 L 8.5-10.1 mg/dL Magnesium Level 2.00 1.80-2.40 mg/dL Iron Level 16 L 50-170 mcg/dL Total Iron Binding Capacity 411 250-450 mcg/dL Percent Iron Saturation 3.8 L 22-44 % Ferritin 106 15-150 ng/mL Total Bilirubin 0.7 0.2-1.0 mg/dL Aspartate Amino Transf (AST/SGOT) 35 10-37 U/L Alanine Aminotransferase (ALT/SGPT) 22 12-78 U/L Alkaline Phosphatase 64 50-136 U/L B-Type Natriuretic Peptide 1150 H 0-100 pg/mL Total Protein 6.6 6.0-8.3 g/dL Albumin 2.8 L 3.5-5.0 g/dL Vitamin B12 Level 620 193-986 pg/mL Folic Acid (LAB) > 20.00 H 2-20 ng/mL Procalcitonin 4.20 H 0.05-0.5 ng/mL Lactic Acid Level 1.3 0.8-2.5 mmol/L Total Creatine Kinase 73 21-232 U/L Troponin I High Sensitivity 19.1 4-50 ng/L C-Reactive Protein, Quantitative 7.30 H 0.5-3.0 mg/L Coagulation Labs: Test 07/12/25 03:37 07/11/25 15:11 Range/Units Prothrombin Time 30.5 H 9.6-11.6 SEC Prothromb Time International Ratio 3.23 H 0.85-1.15 Activated Partial Thromboplast Time 44.9 H 26.3-35.5 SEC DIAGNOSTICS / RADIOLOGY RESULTS: [place] [id number] [address] IMAGING REPORT Signed PATIENT: PK BATEMAN MR#: [id number] : 1940 SEX: F AGE: 84 LOCATION: [facility] ORDER 2300 STATUS: ADM IN REPORT#: [id number] SERVICE 0600 REASON: SOB ORDERING PHYSICIAN: MOR STREET PROCEDURE: CXR1VW - CHEST 1VW EXAM: CR Chest, 1 View. CLINICAL HISTORY: SOB COMPARISON: Yesterday. FINDINGS: LUNGS: Right upper lobe consolidation could represent pneumonia in the correct clinical setting. Follow-up to resolution recommended to exclude alternative pathology. PLEURAL SPACES: No evidence of pleural effusion or pneumothorax. MEDIASTINUM: The cardiomediastinal silhouette is within normal limits. BONES: No aggressive appearing osseous lesion seen. MISCELLANEOUS: Left-sided pacemaker. Valve replacement. Surgical clips overlie the left breast. IMPRESSION: 1. Right upper lobe consolidation, possibly representing pneumonia. 2. Left-sided pacemaker. 3. Valve replacement. 4. Surgical clips overlying the left breast. 5. Follow-up imaging recommended to ensure resolution of consolidation. /[place] DICTATED BY: FAYE PAULINO MD DATE: 07/12/25926 ELECTRONICALLY SIGNED BY: FAYE PAULINO MD DATE: 07/12/25926 PLAN Continue BiPAP support, monitor ABGs and work of breathing wean as possible Continue broad-spectrum antibiotics (cefepime, vancomycin) Monitor cultures, adjust antibiotics per sensitivities Replace potassium and magnesium per ICU protocol; recheck labs Monitor H/H, transfuse PRN per hematology (goal Hgb >7.0) Continue CHF and AFib home meds as tolerated (carvedilol, anticoagulation per INR) Continue aspiration precautions, elevate head of bed 45 Daily labs including CBC, CMP, Mg, Phos DVT prophylaxis GI prophylaxis PT/OT eval once respiratory status stable Case discussed with attending NEURO: Minimize central acting medications as possible. Fall Precautions. Well lighted room through the day and minimize interruptions through the night to prevent acute delirium. PULMONARY: Supplemental 02 as needed Titrate Fio2 to keep Spo2 > or = 90% DuoNebs and CPT as needed IS hourly while awake for pulmonary hygiene Out of bed to chair as tolerated CARDIOVASCULAR: Follow hemodynamics. Titrate vasopressor to keep MAP >65 or systolic blood pressure >95mmHg LINES: PIV GI & NUTRITION: Continue nutritional support Aspirations precautions Prokinetic agents and laxatives as needed KIDNEYS & ELECTROLYTES: Strict monitoring of intake and output Daily weights Avoid nephrotoxic agents Monitor electrolytes and replace as needed Goal urine output of 30mL/hr or 0.5mL/kg/hr ENDOCRINE: Maintain blood glucose between 100-180 at all times. Insulin sliding scale for blood glucose management INFECTIOUS DISEASE: Trend temperature. Acuña-culture if febrile. Micro: [ ] Antibiotics: Zosyn HEMATOLOGY & COAGULATION: Monitor H&H. Keep Hgb > 7 Transfuse 1 unit of PRBC for Hgb < 7 Transfuse 1 pack of platelets of platelets < 20, 000 Watch for any signs and symptoms of bleeding SKIN: Pressure ulcer prevention per facility protocol Rehab: PT/OT Prophylaxis: GI: Protonix DVT: pt on warfarin Code Status: Full Resuscitation Disposition: ICU Critical care time This patient required multiple bedside visits to manage the patient, review blood gases, coordinate with respiratory, nurses review radiology exams, talk to the family members. I personally spent 40 minutes of critical care time in treatment of this patient. This includes patient management, time at bedside, time reviewing tests, labs, appropriate images and studies, documentation, and patient care coordination. This time excludes separately billable procedures. SERA GONSALEZ [facility] Jul 12, 2025 09:36
[2025-07-12 09:42] LABS: ABG BASE EXCESS 3.6 mmol/L (-2.0-3.0); ABG HCO3 31.0 mmol/L (21.0-28.0); ABG OXYGEN SATURATION 97.0 % (94.0-98.0); ABG PH 7.297 (7.350-7.450); CARBON MONOXIDE 1.1 % (0.5-1.5); DEVICE COMMENT LR EDDIE, RN; PO2, ARTERIAL BG 99.1 mmHg (83.0-108.0); TEMPERATURE, CELSIUS BG 37.0 CELSIUS (35.5-37.0); VENT MODE, BG BIPAP 16.8 (ROOM AIR)
[2025-07-12 09:47] LABS: ABG PCO2 65 mmHg (32-45)
--- NOTE | 2025-07-12 11:15 | CONS ---
INFECTIOUS DISEASE CONSULTATION NOTE DATE OF SERVICE: 07/11/2025 REQUESTING PHYSICIAN: Nelda Howard NP REASON FOR CONSULTATION: Sepsis and pneumonia. HISTORY OF PRESENT ILLNESS: This is an 84-year-old female with history of CHF, atrial fibrillation and pulmonary fibrosis who presented to the hospital for shortness of breath. The patient noticed increased weakness and shortness of breath and decided to come to the Emergency Room. The patient also complained of fever. T-max was 103.6. The patient was initially placed on non-rebreather due to worsening respiratory failure. The patient now placed on BiPAP and transferred to ICU. No sick contact, no recent travel. Chest x-ray showed right lower lobe infiltrates. No dysuria or hematuria. BNP is elevated at 223. Lactic acid came back positive at 3.1. PAST MEDICAL HISTORY: * CHF. * Atrial fibrillation. * Pulmonary fibrosis. * Coronary artery disease. PAST SURGICAL HISTORY: * Mitral valve replacement, on Coumadin. * CABG. * Cardiac catheterization. ALLERGIES: No known drug allergies. CURRENT MEDICATIONS: Include, * Cefepime. * Coumadin. * Ferrous sulfate. * Lasix. * . * Tylenol. SOCIAL HISTORY: Lives with daughter. No alcohol, tobacco or illicit drug use. FAMILY HISTORY: Noncontributory. REVIEW OF SYSTEMS: Greater than 10 systems were reviewed, negative except as documented above. PHYSICAL EXAMINATION: GENERAL: Elderly female, awake. VITAL SIGNS: Temperature 100.2, pulse 87, respiratory rate 20, blood pressure 123/48. EYES: No icterus. Pupils equal and reactive. HENT: No oral thrush seen. Moist oral mucosa. NECK: Supple. No JVD or thyromegaly. LUNGS: Good air entry. Crackles bilaterally. CARDIOVASCULAR: S1 and S2. Regular. No murmur heard. ABDOMEN: Full, soft, nontender. Bowel sound is present. CENTRAL NERVOUS SYSTEM: Awake, alert, oriented x 3. No focal deficits. SKIN: No rashes, no itchiness. LYMPHATIC: No peripheral lymphadenopathy. BACK: No deformity. No pressure ulcer. MUSCULOSKELETAL: No joint swelling, erythema, or tenderness. VASCULAR: No ischemia or gangrene of the extremities. LABORATORY DATA: Lactic acid 3.1, BNP 223. Sodium 140, potassium 5.1, BUN 26, creatinine 1.1. WBC 14.7, hemoglobin 8.4, platelets 238. Influenza antigen negative. RADIOLOGY: Chest x-ray shows right lower lobe infiltrates. ASSESSMENT: An 84-year-old female presenting with cough, fever, and shortness of breath. CURRENT PROBLEMS: Include, * Sepsis. * Pneumonia. * Hypoxic respiratory failure. * Atrial fibrillation. * History of mitral valve replacement. PLAN: * Continue critical care support. * Continue BiPAP therapy. * Continue DVT prophylaxis. * Continue cefepime. * Start the patient on doxycycline. * Continue antiemetics. * Continue pain management. * Monitor electrolytes. * The patient will be followed up closely. Thank you for allowing me to participate in the care of this patient. TID: [id number] RECEIPT: [id number]
--- NOTE | 2025-07-12 11:41 | PN ---
[facility] PROGRESS NOTE Date of Service: Jul 12, 2025 Time of Service: 11:41 SUBJECTIVE: [ ] This is a 84-year-old female that presents in ED with chief complaints of shortness a breath. She was brought in by EMS in route patient was placed on non-rebreather. Patient has past medical history of congestive heart failure mitral valve replacement on Coumadin, AFib, advanced pulmonary fibrosis oxygen dependent. Onset shortness a breath has been gradually and progressed over the weekend. Severity severe aggravating factors activity laying flat. Alleviating factors none. Associated symptoms productive cough, mild chills overnight. Patient reports choking with thin liquids. Patient was admitted a month ago at [facility] for similar symptoms. Patient follows glaze maker's Dr. Sachin Maynard MD. [facility] primary traffic observer's Dr. Stevens. Spoke with RIRI: Neva Garrison modified DNR on this admission 07/12/25 patient was seen earlier patient continues on AVPS support. 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 manager summer consulted for nutritional support recommendations . the patient is fully awake and alert. I discussed Hospice Palliative care and LTAC with RIRI Garrison. WE will continue to monitor patient progress. critical care following: goal to Titrate Fio2 to keep Spo2 > or = 90% Weaned Bipap. REVIEW OF SYSTEMS A 12 point ROS obtained all relevant positive documented otherwise ROS negative PHYSICAL EXAM GENERAL APPEARANCE: The patient is awake, alert, and oriented, acute cardiopulmonary distress on Bipap support NEUROLOGICAL: Cranial nerves II-XII grossly intact. Motor is 5/5 in bilateral upper and lower extremities proximal to distal. No sensory deficits. HEENT: Face is symmetric. Pupils are equal and reactive. Extraocular movements are intact. NECK: Supple. No JVD. No thyromegaly. No submental, submandibular, pre- /postauricular, occipital or supraclavicular lymphadenopathy. CHEST: Normal chest expansion. ++Telemetry. LUNGS:++ rales, rhonchi CARDIOVASCULAR: Regular. S1 and S2 normal. No appreciable rubs, murmurs or gallops. ABDOMEN: Soft, nontender, and nondistended. There is no rebound, voluntary guarding, or rigidity. : Deferred. No Cantu. EXTREMITIES: slight-edematous lower ext. and not cyanotic. No clubbing. Good capillary refill. SKIN: No skin breakdown. Vital Signs (last 8hr) Date Time Temp Pulse Resp B/P (MAP) Pulse Ox O2 Delivery O2 Flow Rate FiO2 07/12/25 11:13 80 27 07/12/25 09:55 67 26 40 07/12/25 09:26 75 26 40 07/12/25 08:10 64 16 108/46 100 BIPAP 40 07/12/25 08:00 98.6 65 21 111/43 99 BIPAP 40 07/12/25 07:00 70 21 102/38 99 BIPAP 40 07/12/25 06:45 74 28 07/12/25 06:42 74 28 40 07/12/25 06:00 64 18 89/41 97 BIPAP 40 07/12/25 05:30 72 23 98/59 86 40 07/12/25 05:19 63 27 35 07/12/25 05:00 67 21 90/40 95 BIPAP 40 07/12/25 04:30 65 24 86/40 94 BIPAP 40 07/12/25 04:29 75 26 35 07/12/25 04:00 99.0 65 20 105/40 96 BIPAP 50 07/12/25 04:00 95 Bi-PAP+ 50 LABS: Laboratory: Test 07/12/25 09:40 07/12/25 03:37 07/11/25 15:11 07/11/25 12:50 Range/Units Blood Gas Specimen Type Arterial Arterial Blood pH 7.297 L 7.350-7.450 Arterial Blood Partial Pressure CO2 65 *H 32-45 mmHg Arterial Blood Partial Pressure O2 99.1 83.0-108.0 mmHg Arterial Blood HCO3 31.0 H 21.0-28.0 mmol/L Arterial Blood Oxygen Saturation 97.0 94.0-98.0 % Arterial Blood Base Excess 3.6 H -2.0-3.0 mmol/L Hemoglobin (Blood Gas) 8.9 L 12.0-16.0 g/dL Sodium (Blood Gas) 139 136-145 MMOL/L Bedside Potassium (Blood Gas) 4.4 3.4-4.5 MMOL/L Bedside Chloride (Blood Gas) 103 98-107 MMOL/L Bedside Glucose (Blood Gas) 90 65-95 MG/DL Bedside Ionized Calcium (Blood Gas) 1.12 L 1.15-1.33 MMOL/L Bedside Lactic Acid (Blood Gas) 0.91 H 0.36-0.75 MMOL/L Blood Gas Temperature 37.0 35.5-37.0 CELSIUS Blood Gas Respiration Rate 26.0 min. Blood Gas Vent Mode BIPAP 16.8 ROOM AIR FiO2 40.0 % Blood Gas Specimen Comment LR SAM JUAREZ White Blood Count 29.9 #H 4.8-10.8 K/uL Red Blood Count 2.46 L 4.00-5.50 MIL/uL Hemoglobin 7.9 L 12.0-16.0 g/dL Hematocrit 26.4 L 36-48 % Mean Corpuscular Volume 107.3 H 79-99 fL Mean Corpuscular Hemoglobin 32.1 27.0-33.0 pg Mean Corpuscular Hemoglobin Concent 29.9 L 32.0-36.0 g/dL Red Cell Distribution Width 18.2 H 11.0-15.5 % Platelet Count 191 130-400 K/uL Mean Platelet Volume 10.1 7.5-10.5 fL Immature Granulocyte % (Auto) 3.9 H 0-1 % Neutrophils (%) (Auto) 85.7 H 40.0-77.0 % Lymphocytes (%) (Auto) 3.7 L 21.0-51.0 % Monocytes (%) (Auto) 6.3 3.0-13.0 % Eosinophils (%) (Auto) 0.1 0.0-8.0 % Basophils (%) (Auto) 0.3 0.0-5.0 % Neutrophils # (Auto) 25.6 H 1.8-7.7 K/uL Lymphocytes # (Auto) 1.1 1.0-4.8 K/uL Monocytes # (Auto) 1.9 H 0.1-1.0 K/uL Eosinophils # (Auto) 0.04 0.00-0.70 K/uL Basophils # (Auto) 0.09 0.00-0.20 K/uL Absolute Immature Granulocyte (auto 1.17 H 0-1 K/uL Nucleated Red Blood Cells 0.0 0.0-0.19 % Reticulocyte Count (auto) 4.02803 H 0.42-2.23 % Immature Reticulocyte Fraction 31.50 H 0.18-0.48 % Prothrombin Time 30.5 H 9.6-11.6 SEC Prothromb Time International Ratio 3.23 H 0.85-1.15 Sodium Level 141 136-145 mmol/L Potassium Level 4.9 3.5-5.1 mmol/L Chloride Level 103 101-111 mmol/L Carbon Dioxide Level 38 H 21-32 mmol/L Blood Urea Nitrogen 27 H 7-18 mg/dL Creatinine 1.3 H 0.5-1.0 mg/dL Glomerular Filtration Rate Calc 40 >90 mL/min Random Glucose 109 H 70-105 mg/dL Total Calcium 8.3 L 8.5-10.1 mg/dL Magnesium Level 2.00 1.80-2.40 mg/dL Iron Level 16 L 50-170 mcg/dL Total Iron Binding Capacity 411 250-450 mcg/dL Percent Iron Saturation 3.8 L 22-44 % Ferritin 106 15-150 ng/mL Total Bilirubin 0.7 0.2-1.0 mg/dL Aspartate Amino Transf (AST/SGOT) 35 10-37 U/L Alanine Aminotransferase (ALT/SGPT) 22 12-78 U/L Alkaline Phosphatase 64 50-136 U/L B-Type Natriuretic Peptide 1150 H 0-100 pg/mL Total Protein 6.6 6.0-8.3 g/dL Albumin 2.8 L 3.5-5.0 g/dL Vitamin B12 Level 620 193-986 pg/mL Folic Acid (LAB) > 20.00 H 2-20 ng/mL Procalcitonin 4.20 H 0.05-0.5 ng/mL Activated Partial Thromboplast Time 44.9 H 26.3-35.5 SEC Lactic Acid Level 1.3 0.8-2.5 mmol/L Test 07/11/25 09:31 07/11/25 09:05 07/11/25 09:00 Range/Units Blood Gas Flow-by 15.00 0.00-15.00 L/min White Cell Morphology Comment CONSISTENT W/DIFF Red Blood Cell Morphology See comments Total Creatine Kinase 73 21-232 U/L Troponin I High Sensitivity 19.1 4-50 ng/L C-Reactive Protein, Quantitative 7.30 H 0.5-3.0 mg/L Influenza Type A Antigen Negative For Type A NEGATIVE Influenza Type B Antigen Negative For Type B NEGATIVE SARS-CoV-2 Antigen (Rapid) PRESUMPTIVE NEGATIVE NEGATIVE Current Medications Medications (Trade) Dose Ordered Sig/Macey Route PRN Reason Start Time Stop Time Status Last Admin Dose Admin Acetaminophen (TYLenol 325MG TAB) 650 mg Q4H PRN PO TEMPERATURE GREATER THAN 101.5 07/11/25 11:00 08/10/25 10:59 07/11/25 20:03 650 MG Acetaminophen (TYLenol 325MG TAB) 650 mg Q6H PRN PO MILD PAIN (1-3) 07/11/25 15:30 08/10/25 15:29 07/11/25 15:31 650 MG Albuterol (DUOneb) 1 UDVIAL Q6H PRN IH SHORTNESS OF BREATH 07/11/25 11:00 08/10/25 10:59 07/12/25 11:13 1 UDVIAL Allopurinol (ZYLOprim 100MG) 50 mg Q48H PO 07/12/25 09:00 08/11/25 08:59 Atorvastatin Calcium (LIPItor 10MG) 10 mg HS PO 07/11/25 21:00 08/10/25 20:59 07/11/25 20:03 10 MG Carvedilol (Coreg 3.125MG) 3.125 mg BID PO 07/11/25 21:00 08/10/25 20:59 Cefepime HCl (MAXipime 2 gm vial) 2 gm Q24H IVPB 07/11/25 11:00 07/21/25 10:59 07/11/25 13:07 2 GM Docusate Sodium (COLace 100MG CAP) 100 mg BID PRN PO CONSTIPATION 07/11/25 12:00 08/10/25 11:59 Doxycycline Hyclate (Doxycycline Hyclate) 100 mg BID PO 07/11/25 21:00 07/21/25 20:59 07/12/25 08:37 100 MG Ferrous Sulfate (Ferrous Sulfate) 325 mg DAILY PO 07/12/25 09:00 08/11/25 08:59 Folic Acid (FOLic ACID 1 MG TABLET) 1 mg DAILY PO 07/12/25 09:00 07/12/25 09:40 DC Furosemide (LASix 40MG TAB) 40 mg BID@09,17 PO 07/12/25 09:00 08/11/25 08:59 07/12/25 08:37 40 MG Furosemide (LASix 40MG VIAL) 40 mg Q12H IV 07/11/25 21:00 07/12/25 07:56 DC 07/11/25 20:03 40 MG Lactulose (Constulose 20gm/ 30ml Udcup) 20 gm BID PRN PO CONSTIPATION 07/11/25 11:00 08/10/25 10:59 Lidocaine (Lidocaine Patch 4%) 1 each Q24H TP 07/11/25 16:00 08/10/25 15:59 07/11/25 16:05 1 EACH Losartan Potassium (CozAAR 25MG TAB) 25 mg DAILY PO 07/12/25 09:00 08/11/25 08:59 Magnesium Sulfate 50 ml @ 0 mls/hr PROTOCOL PRN IV low mag level 07/11/25 11:30 08/10/25 11:29 Metronidazole/ Sodium Chloride 100 ml @ 100 mls/hr Q8H IVPB 07/12/25 10:00 07/22/25 09:59 07/12/25 10:02 100 MLS/HR Pantoprazole Sodium (PROTonix 40MG INJ) 40 mg BID IVP 07/11/25 21:00 08/10/25 20:59 07/12/25 08:36 40 MG Potassium Chloride 100 ml @ 100 mls/hr AD PRN IV POTASSIUM PROTOCOL 07/11/25 11:30 08/10/25 11:29 Potassium Chloride (K-Dur/Klor-Con 20meq) 20 meq AD PRN PO POTASSIUM PROTOCOL 07/11/25 11:30 08/10/25 11:29 Potassium Chloride (KCl 10% Elixir 20meq/15ml) 20 meq AD PRN PO POTASSIUM PROTOCOL 07/11/25 11:30 08/10/25 11:29 Thiamine HCl (Vitamin B-1) 100 mg DAILY IVP 07/13/25 09:00 08/12/25 08:59 Vancomycin HCl (Vancomycin 1g/ 250ml Kit) 1 gm Q12H IV 07/11/25 11:00 07/11/25 11:02 DC Warfarin Sodium (Coumadin) 2 mg WARF PO 07/12/25 16:00 07/19/25 15:59 Warfarin Sodium (Coumadin) 2.5 mg QSU PO 07/17/25 09:00 07/11/25 15:37 DC Warfarin Sodium (Coumadin) 2.5 mg QTUTHSA PO 07/12/25 09:00 07/11/25 15:37 DC Warfarin Sodium (Coumadin) 5 mg QMOWEFR PO 07/11/25 16:00 07/11/25 15:37 DC DIAGNOSTICS / RADIOLOGY: [ ] ASSESSMENT: Acute respiratory failure with hypoxia POA requiring oxygen supplemental BiPAP support Suspecting aspiration pneumonia POA History advanced pulmonary fibrosis POA Home oxygen dependent POA acute CHF on Chronic CHF with Mitral value replacement Hypercoagulable state on Coumadin secondary to MVR persistent A fibb on Warfarin pOA Sepsis( temperature 103.6 heart rate 115 respirations 26) POA gram negative bacteremia POA BINU on chronic renal failure POA Acute anemia on chronic anemia POA debility with physical deconditioning PLAN: [ ] Admit: ICU condition: Guarded Status: MODIFIED DNR IVF: heplock Diet: NPO for now until Speech recommendations. Consultants critical team, traffic observer and illuminator Antibiotics: Zosyn 3.375 gm IV q8 hrs, Metronidazole 500 mg IV q8 hrs and doxycycline 100 mg IV every 12 hrs. continue to monitor WBC's trends, afebrile Imaging 2D echo to evaluate LV function, venous doppler both noted Microbiology: blood cultures growing gram negative robyn: repeat cultures 2 set 15 min apart in reference Resp failure with RUL pneumonia: Duo nebs as needed; oxygen supplemental to keep O2 saturations above 92% Aspiration precautions head of the bed at 45 at all times, speech consulted to rule out aspiration Labs cbc, cmp, mag+ in a.m. Replace electrolytes as needed as per protocol to keep potassium above 4.0 magnesium 2.0. avoid NSAIDS and renal dose medication fluid restriction1.5 liter daily strict I/O on Lasix IV bid 40 mg Home medications reviewed and reconciled Coumadin dosage change to low dose per DR Stevens: 2 mg goal to INR between 2- 1/2 to 3-1/2. daily INR will monitor H/H trends transfuse to keep HGB above 7. Entry Level Management following manager summer consulted for nutritional support continue with carvedilol 3.125 mg p.o. b.i.d. for rate control continue Folic acid 1 mg po daily and ferrous sulfate 325 mg po daily Supportive measures: DVT ppx, GI ppx case management discharged planning all questions answered time spent: > 35 min Supervising MD: Dr. Osorio c/d This document was generated in part using voice recognition software, occasional wrong word or sound alike substitutions may have occurred due to the inherent limitations of voice recognition software. Read the chart carefully and recognize using context, where the substitutions have occurred. Although every effort was made to edit the content, hat finisher and typing errors may occur ATTESTATION BY PHYSICIAN I have seen and examined the patient. I reviewed the documentation, medical decision making, and treatment plan as noted by the mid-level provider above. I agree with the findings and plan of care. DAYANNA OSORIO MD, ELIZABETH NP Jul 12, 2025 11:41
--- NOTE | 2025-07-12 11:55 | PN ---
The patient is an 84-year-old female with a history of mitral valve replacement, chronic congestive heart failure, atrial fibrillation, and advanced pulmonary fibrosis requiring supplemental oxygen at baseline. She presented to the emergency department with progressive shortness of breath and cough. She was hypoxemic on arrival, requiring escalation to BiPAP support. Initial evaluation demonstrated leukocytosis, anemia, BINU, and electrolyte derangements. Chest imaging suggested bilateral pneumonia. 07/11 Patient seen and examined at bedside. She is awake, alert, oriented and on BIPAP treatment. Chest xray demonstrates right upper lobe pneumonia possibly from aspiration. 2D echo on 07/11/2025 with an LVEF 55-60% stage II diastolic dysfunction a severely dilated left atrium, moderately dilated right atrium, mild aortic stenosis, mitral valve prosthesis with prosthetic peak of 14mmHg and mean of 4mmHg, and moderate tricuspid regurgitation with an RVSP of 52mmHg. On blood smear we see rouleau phenomenon. Direct Antonino negative. We will order an anemia panel and SPEP and free light chains. PMH: CHF mitral valve replacement, AFib PSH: CABG, mitral valve replacement SH: Denies smoking tobacco products and alcohol use. FH: Noncontributory ALLERGIES: Coded Allergies: No Known Drug Allergies (Unverified Allergy, Unknown, 08/03/18) PHYSICAL EXAM VITALS: Vital Signs Date Time Temp Pulse Resp B/P (MAP) Pulse Ox O2 Delivery O2 Flow Rate FiO2 07/11/25 20:17 91/44 07/11/25 20:03 99.9 07/11/25 18:57 88 34 07/11/25 18:44 50 07/11/25 18:10 94 BIPAP 07/11/25 09:13 15 GENERAL: ALERT, ORIENTED EYES: PUPILS EQUAL/REACTIVE, EXTRAOCULAR MUSCLES INTCT RESPIRATORY: LUNGS CLEAR-AUSC/PERCUS CARDIOVASCULAR: REGULAR RATE, REGULAR RHYTHM NEUROLOGICAL: GROSSLY INTACT Assessment 1. Anemia. Hemoglobin level continue to be 8.4 g/deciliter 2. Leukocytosis 3. 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 Osteoporosis 5. Respiratory failure with the patient on BiPAP. Patient is a DO NOT INTUBATE. Plan 1. Low hemoglobin is stable. There is no need for blood product transfusion 2. Patient DO NOT INTUBATE. 3. Continue BiPAP as per court officer Continue antibiotic treatment. Vitals/Labs Vital Signs Date Time Temp Pulse Resp B/P (MAP) Pulse Ox O2 Delivery O2 Flow Rate FiO2 07/12/25 11:13 80 27 07/12/25 09:55 40 07/12/25 08:10 108/46 100 BIPAP 07/12/25 08:00 98.6 07/11/25 09:13 15 Laboratory Tests 07/12/25 03:37 Medications Current Medications Albuterol 1 udvial ONCE ONCE IH Last administered on 07/11/25at 09:43; Start 07/11/25 at 09:00; Stop 07/11/25 at 09:01; Status DC Furosemide 40 mg ONCE ONCE IVP Last administered on 07/11/25at 09:41; Start 07/11/25 at 09:00; Stop 07/11/25 at 09:01; Status DC Piperacillin Sod/ Tazobactam Sod 3.375 gm ONCE ONCE IV Last administered on 07/11/25at 10:51; Start 07/11/25 at 10:00; Stop 07/11/25 at 10:01; Status DC Azithromycin 250 ml @ 250 mls/hr ONCE ONCE IVPB Last administered on 07/11/25at 10:56; Start 07/11/25 at 10:00; Stop 07/11/25 at 10:59; Status DC Lactated Ringer's 500 ml @ 0 mls/hr ONCE ONCE IV Last administered on 07/11/25at 10:51; Start 07/11/25 at 10:00; Stop 07/11/25 at 10:01; Status DC Acetaminophen 1,000 mg ONCE ONCE PO Last administered on 07/11/25at 10:56; Start 07/11/25 at 11:00; Stop 07/11/25 at 11:01; Status DC Lactulose 20 gm BID PRN PO; Start 07/11/25 at 11:00; Stop 08/10/25 at 10:59 Pantoprazole Sodium 40 mg BID IVP Last administered on 07/12/25at 08:36; Start 07/11/25 at 21:00; Stop 08/10/25 at 20:59 Acetaminophen 650 mg Q4H PRN PO Last administered on 07/11/25at 20:03; Start 07/11/25 at 11:00; Stop 08/10/25 at 10:59 Albuterol 1 UDVIAL Q6H PRN IH Last administered on 07/12/25at 11:13; Start 07/11/25 at 11:00; Stop 08/10/25 at 10:59 Cefepime HCl 2 gm Q24H IVPB Last administered on 07/11/25at 13:07; Start 07/11/25 at 11:00; Stop 07/21/25 at 10:59 Vancomycin HCl 1 gm Q12H IV; Start 07/11/25 at 11:00; Stop 07/11/25 at 11:02; Status DC Potassium Chloride 100 ml @ 100 mls/hr AD PRN IV; Start 07/11/25 at 11:30; Stop 08/10/25 at 11:29 Potassium Chloride 20 meq AD PRN PO; Start 07/11/25 at 11:30; Stop 08/10/25 at 11:29 Potassium Chloride 20 meq AD PRN PO; Start 07/11/25 at 11:30; Stop 08/10/25 at 11:29 Magnesium Sulfate 50 ml @ 0 mls/hr PROTOCOL PRN IV; Start 07/11/25 at 11:30; Stop 08/10/25 at 11:29 Furosemide 40 mg Q12H IV Last administered on 07/11/25at 20:03; Start 07/11/25 at 21:00; Stop 07/12/25 at 07:56; Status DC Warfarin Sodium 5 mg QMOWEFR PO; Start 07/11/25 at 16:00; Stop 07/11/25 at 15:37; Status DC Warfarin Sodium 2.5 mg QTUTHSA PO; Start 07/12/25 at 09:00; Stop 07/11/25 at 15:37; Status DC Carvedilol 3.125 mg BID PO; Start 07/11/25 at 21:00; Stop 08/10/25 at 20:59 Losartan Potassium 25 mg DAILY PO; Start 07/12/25 at 09:00; Stop 07/12/25 at 11:47; Status DC Atorvastatin Calcium 10 mg HS PO Last administered on 07/11/25at 20:03; Start 07/11/25 at 21:00; Stop 08/10/25 at 20:59 Docusate Sodium 100 mg BID PRN PO; Start 07/11/25 at 12:00; Stop 08/10/25 at 11:59 Folic Acid 1 mg DAILY PO; Start 07/12/25 at 09:00; Stop 07/12/25 at 09:40; Status DC Ferrous Sulfate 325 mg DAILY PO; Start 07/12/25 at 09:00; Stop 08/11/25 at 08:59 Warfarin Sodium 2.5 mg QSU PO; Start 07/17/25 at 09:00; Stop 07/11/25 at 15:37; Status DC Doxycycline Hyclate 100 mg BID PO Last administered on 07/12/25at 08:37; Start 07/11/25 at 21:00; Stop 07/21/25 at 20:59 Sodium Chloride 4 ml STK-MED ONCE IH Last administered on 07/11/25at 13:58; Start 07/11/25 at 13:39; Stop 07/11/25 at 13:39; Status DC Acetaminophen 650 mg Q6H PRN PO Last administered on 07/11/25at 15:31; Start 07/11/25 at 15:30; Stop 08/10/25 at 15:29 Lidocaine 1 each Q24H TP Last administered on 07/11/25at 16:05; Start 07/11/25 at 16:00; Stop 08/10/25 at 15:59 Allopurinol 50 mg Q48H PO; Start 07/12/25 at 09:00; Stop 08/11/25 at 08:59 Sodium Chloride 4 ml STK-MED ONCE IH Last administered on 07/11/25at 18:40; Start 07/11/25 at 18:31; Stop 07/11/25 at 18:32; Status DC Sodium Chloride 4 ml STK-MED ONCE IH Last administered on 07/11/25at 23:22; Start 07/11/25 at 23:13; Stop 07/11/25 at 23:13; Status DC Warfarin Sodium 2 mg WARF PO; Start 07/12/25 at 16:00; Stop 07/19/25 at 15:59 Furosemide 40 mg BID@09,17 PO Last administered on 07/12/25at 08:37; Start 07/12/25 at 09:00; Stop 08/11/25 at 08:59 Metronidazole/ Sodium Chloride 100 ml @ 100 mls/hr Q8H IVPB Last administered on 07/12/25at 10:02; Start 07/12/25 at 10:00; Stop 07/22/25 at 09:59 Thiamine HCl 100 mg DAILY IVP; Start 07/13/25 at 09:00; Stop 08/12/25 at 08:59 LYDIA PAUL MD Jul 12, 2025 11:55
[2025-07-12] MEDS: ZOSYN 3.375GM +NS 50ML IV SCH (12:55)
[2025-07-12] MEDS: Solu-medROL 40MG VIAL IVP SCH (15:23)
[2025-07-12] MEDS: WARFARIN SODIUM 2 MG TAB PO SCH (15:23)
--- NOTE | 2025-07-12 15:38 | PN ---
[facility] PROGRESS NOTE Date Patient Seen: Jul 12, 2025 Time of Visit: 15:17 Supervising Physician: [ ] Primary Care Physician: [ ] Outpatient Specialists: [ ] Inpatient Consults: [ ] PROBLEM LIST: Acute hypoxemic respiratory failure on BiPAP (FiO? 50%) Tachypnea (RR 41) History of congestive heart failure with mitral valve replacement Atrial fibrillation Advanced pulmonary fibrosis, oxygen dependent Suspected aspiration pneumonia Acute on chronic anemia BINU on chronic kidney disease Sepsis (tachypnea, leukocytosis, fever on presentation) INTERVAL HISTORY: 84-year-old female with a history of mitral valve replacement, chronic congestive heart failure, atrial fibrillation, and advanced pulmonary fibrosis requiring supplemental oxygen at home baseline. She presented to the emergency department with progressive shortness of breath and cough. She was hypoxemic on arrival, requiring escalation to BiPAP support. Initial evaluation demonstrated leukocytosis, anemia, BINU, and electrolyte derangements. Chest imaging suggested bilateral pneumonia. 07/12- Patient is seen at the bedside with her daughter present.She continues on AVAPS support inspiratory pressure of 16 and expiratory pressure 8 FiO2 at 40% said respiratory rate 26 tidal volume 450 mL, p-max 30, p minimum 50, stable and oriented.Vitals stable. Labs WBC 29.9 trending up from 14.2, HB 7.9 stable, ABG shows retained CO2 at 65, which led to changes in the BiPAP settings. Blood culture positive for Gram-negative rods, Dr. Lenz started on Zosyn discontinue cefepime, continues on metronidazole and doxy. CT chest without contrast ordered pending. Patient is started on Solu-Medrol 40 q.8h, losartan discontinued due to her trending creatinine. BNP 1 150, continues on furosemide orally 40 b.i.d, and warfarin 2 mg. Goal of INR 2.5-3.5. Currently 3.2. We will keep monitoring. Swallow test pending for oral feeds. REVIEW OF SYSTEMS: 12 point ROS reviewed with patient. Pertinent positives mentioned above. Otherwise negative. PHYSICAL EXAM: GENERAL: alert, weak, awake oriented x 3 HEENT: EOMI, Sclera non icteric, moist mucosa NECK: Supple, no JVD, trachea midline LUNGS: Clear breath sounds bilaterally. No wheezes HEART: Regular rate and rhythm. Normal S1 and S2, without murmurs ABD: Abdomen soft, nontender. Bowel sounds present EXT: No clubbing cyanosis or edema NEURO: Alert and oriented to person, follows commands Vital Signs (last 8hr) Date Time Temp Pulse Resp B/P (MAP) Pulse Ox O2 Delivery O2 Flow Rate FiO2 07/12/25 13:40 67 19 122/45 98 AVAPS 40 07/12/25 13:10 77 18 120/59 93 AVAPS 40 07/12/25 12:41 92 13 115/51 98 AVAPS 40 07/12/25 12:40 69 19 122/95 98 AVAPS 40 07/12/25 12:08 70 26 40 07/12/25 12:00 100 Bi-PAP+ 40 07/12/25 11:45 81 16 115/69 99 AVAPS 40 07/12/25 11:30 78 22 108/49 100 AVAPS 40 07/12/25 11:13 80 27 07/12/25 10:40 73 10 105/39 100 AVAPS 40 07/12/25 10:10 92 21 112/59 97 AVAPS 40 07/12/25 09:55 67 26 40 07/12/25 09:40 90 18 120/67 100 AVAPS 40 07/12/25 09:26 75 26 40 07/12/25 09:11 68 13 123/27 98 BIPAP 40 07/12/25 08:40 64 20 112/44 97 BIPAP 40 07/12/25 08:10 64 16 108/46 100 BIPAP 40 07/12/25 08:00 98.6 65 21 111/43 99 BIPAP 40 07/12/25 08:00 95 Bi-PAP+ 40 LABS: Hematology Labs: Test 07/12/25 03:37 07/11/25 09:05 Range/Units White Blood Count 29.9 #H 4.8-10.8 K/uL Red Blood Count 2.46 L 4.00-5.50 MIL/uL Hemoglobin 7.9 L 12.0-16.0 g/dL Hematocrit 26.4 L 36-48 % Mean Corpuscular Volume 107.3 H 79-99 fL Mean Corpuscular Hemoglobin 32.1 27.0-33.0 pg Mean Corpuscular Hemoglobin Concent 29.9 L 32.0-36.0 g/dL Red Cell Distribution Width 18.2 H 11.0-15.5 % Platelet Count 191 130-400 K/uL Mean Platelet Volume 10.1 7.5-10.5 fL Immature Granulocyte % (Auto) 3.9 H 0-1 % Neutrophils (%) (Auto) 85.7 H 40.0-77.0 % Lymphocytes (%) (Auto) 3.7 L 21.0-51.0 % Monocytes (%) (Auto) 6.3 3.0-13.0 % Eosinophils (%) (Auto) 0.1 0.0-8.0 % Basophils (%) (Auto) 0.3 0.0-5.0 % Neutrophils # (Auto) 25.6 H 1.8-7.7 K/uL Lymphocytes # (Auto) 1.1 1.0-4.8 K/uL Monocytes # (Auto) 1.9 H 0.1-1.0 K/uL Eosinophils # (Auto) 0.04 0.00-0.70 K/uL Basophils # (Auto) 0.09 0.00-0.20 K/uL Absolute Immature Granulocyte (auto 1.17 H 0-1 K/uL Nucleated Red Blood Cells 0.0 0.0-0.19 % Reticulocyte Count (auto) 4.58401 H 0.42-2.23 % Immature Reticulocyte Fraction 31.50 H 0.18-0.48 % White Cell Morphology Comment CONSISTENT W/DIFF Red Blood Cell Morphology See comments Chemistry Labs: Test 07/12/25 03:37 07/11/25 12:50 07/11/25 09:05 Range/Units Sodium Level 141 136-145 mmol/L Potassium Level 4.9 3.5-5.1 mmol/L Chloride Level 103 101-111 mmol/L Carbon Dioxide Level 38 H 21-32 mmol/L Blood Urea Nitrogen 27 H 7-18 mg/dL Creatinine 1.3 H 0.5-1.0 mg/dL Glomerular Filtration Rate Calc 40 >90 mL/min Random Glucose 109 H 70-105 mg/dL Total Calcium 8.3 L 8.5-10.1 mg/dL Magnesium Level 2.00 1.80-2.40 mg/dL Iron Level 16 L 50-170 mcg/dL Total Iron Binding Capacity 411 250-450 mcg/dL Percent Iron Saturation 3.8 L 22-44 % Ferritin 106 15-150 ng/mL Total Bilirubin 0.7 0.2-1.0 mg/dL Aspartate Amino Transf (AST/SGOT) 35 10-37 U/L Alanine Aminotransferase (ALT/SGPT) 22 12-78 U/L Alkaline Phosphatase 64 50-136 U/L B-Type Natriuretic Peptide 1150 H 0-100 pg/mL Total Protein 6.6 6.0-8.3 g/dL Albumin 2.8 L 3.5-5.0 g/dL Vitamin B12 Level 620 193-986 pg/mL Folic Acid (LAB) > 20.00 H 2-20 ng/mL Procalcitonin 4.20 H 0.05-0.5 ng/mL Lactic Acid Level 1.3 0.8-2.5 mmol/L Total Creatine Kinase 73 21-232 U/L Troponin I High Sensitivity 19.1 4-50 ng/L C-Reactive Protein, Quantitative 7.30 H 0.5-3.0 mg/L Coagulation Labs: Test 07/12/25 03:37 07/11/25 15:11 Range/Units Prothrombin Time 30.5 H 9.6-11.6 SEC Prothromb Time International Ratio 3.23 H 0.85-1.15 Activated Partial Thromboplast Time 44.9 H 26.3-35.5 SEC DIAGNOSTICS / RADIOLOGY RESULTS: [ ] PLAN Continue BiPAP support, monitor ABGs and work of breathing Continue broad-spectrum antibiotics, Zosyn, Flagyl, doxy Monitor cultures, adjust antibiotics per sensitivities Replace potassium and magnesium per ICU protocol; recheck labs Monitor H/H, transfuse PRN per hematology (goal Hgb >7.0) Continue CHF and AFib home meds as tolerated (carvedilol, anticoagulation per INR) Continue aspiration precautions, elevate head of bed 45 Daily labs including CBC, CMP, Mg, Phos DVT prophylaxis GI prophylaxis PT/OT eval once respiratory status stable Case discussed with attending NEURO: Minimize central acting medications as possible. Fall Precautions. Well lighted room through the day and minimize interruptions through the night to prevent acute delirium. NEURO: Minimize central acting medications as possible. Fall Precautions. Well lighted room through the day and minimize interruptions through the night to prevent acute delirium. PULMONARY: Supplemental 02 as needed Titrate Fio2 to keep Spo2 > or = 90% DuoNebs and CPT as needed IS hourly while awake for pulmonary hygiene Out of bed to chair as tolerated CARDIOVASCULAR: Follow hemodynamics. Titrate vasopressor to keep MAP >65 or systolic blood pressure >95mmHg LINES: PIV GI & NUTRITION: Continue nutritional support Aspirations precautions Prokinetic agents and laxatives as needed KIDNEYS & ELECTROLYTES: Strict monitoring of intake and output Daily weights Avoid nephrotoxic agents Monitor electrolytes and replace as needed Goal urine output of 30mL/hr or 0.5mL/kg/hr ENDOCRINE: Maintain blood glucose between 100-180 at all times. Insulin sliding scale for blood glucose management INFECTIOUS DISEASE: Trend temperature. Acuña-culture if febrile. Micro: [ ] Antibiotics: Zosyn HEMATOLOGY & COAGULATION: Monitor H&H. Keep Hgb > 7 Transfuse 1 unit of PRBC for Hgb < 7 Transfuse 1 pack of platelets of platelets < 20, 000 Watch for any signs and symptoms of bleeding SKIN: Pressure ulcer prevention per facility protocol Rehab: PT/OT Prophylaxis: GI: Protonix DVT: pt on warfarin Code Status: Full Resuscitation Disposition: ICU Critical care time This patient required multiple bedside visits to manage the patient, review blood gases, coordinate with respiratory, nurses review radiology exams, talk to the family members. . This includes patient management, time at bedside, time reviewing tests, labs, appropriate images and studies, documentation, and patient care coordination. ATTESTATION BY PHYSICIAN I have seen and examined the patient. I reviewed the documentation, medical decision making, and treatment plan as noted by the mid-level provider above. I agree with the findings and plan of care. NATHANIEL COBB MD, AISHWARYA MD Jul 12, 2025 15:38
[2025-07-12 16:43] LABS: ABG BASE EXCESS 4.6 mmol/L (-2.0-3.0); ABG HCO3 31.4 mmol/L (21.0-28.0); ABG OXYGEN SATURATION 97.5 % (94.0-98.0); ABG PCO2 56 mmHg (32-45); ABG PH 7.371 (7.350-7.450); DEVICE COMMENT RR,EDDIE; PO2, ARTERIAL BG 102.8 mmHg (83.0-108.0); TEMPERATURE, CELSIUS BG 37.0 CELSIUS (35.5-37.0); VENT MODE, BG AVAPS 15-.30 (ROOM AIR)
--- NOTE | 2025-07-12 21:58 | PN ---
INFECTIOUS DISEASE PROGRESS NOTE Date of Service: Jul 12, 2025 SUBJECTIVE: This is a 84-year-old female patient who remains on hypoxic respiratory failure and is currently on BiPAP support. The WBC this morning trended up to 29.9. Patient also had a low-grade fever of 99.9 last night, but no fever this morning, temperature is 98.6. We will discontinue cefepime and start Zosyn 3.375 g IV every 8 hours. We will continue to follow patient's care. PHYSICAL EXAM EYES: Anicteric. Pupils equal and reactive. HENT: No oral thrush seen, moist Oral mucosa. NECK: Supple, no JVD or thyromegaly. LUNGS: Diminished breath sounds. Currently on BiPAP support. CARDIOVASCULAR: S1, S2 regular. No murmur heard. ABDOMEN: Soft, non tender, bowel sounds present, no organomegaly. CENTRAL NERVOUS SYSTEM: Awake, alert, oriented x 3. SKIN: No rashes, no swelling. LYMPHATICS: No peripheral lymphadenopathy. MUSCULOSKELETAL: No joint swelling, erythema or tenderness. EXTREMITIES: No cyanosis or clubbing. BACK: No deformity, no pressure ulcer. GENITOURINARY: No dysuria or hematuria. Cantu catheter. Vital Sign (Last 12 Hours) 07/12/25 07/12/25 07/12/25 07/12/25 09:55 10:10 10:40 11:13 Pulse 67 92 73 80 Resp 26 21 10 27 B/P (MAP) 112/59 105/39 Pulse Ox 97 100 O2 Delivery AVAPS AVAPS FiO2 40 40 40 07/12/25 07/12/25 07/12/25 07/12/25 11:30 11:45 12:00 12:08 Pulse 78 81 70 Resp 22 16 26 B/P (MAP) 108/49 115/69 Pulse Ox 100 99 100 O2 Delivery AVAPS AVAPS Bi-PAP+ FiO2 40 40 40 40 07/12/25 07/12/25 07/12/25 07/12/25 12:40 12:41 13:10 13:40 Pulse 69 92 77 67 Resp 19 13 18 19 B/P (MAP) 122/95 115/51 120/59 122/45 Pulse Ox 98 98 93 98 O2 Delivery AVAPS AVAPS AVAPS AVAPS FiO2 40 40 40 40 07/12/25 07/12/25 07/12/25 07/12/25 14:11 14:40 15:10 15:39 Pulse 72 67 75 68 Resp 44 19 19 26 B/P (MAP) 110/54 109/47 115/50 Pulse Ox 99 98 100 O2 Delivery AVAPS AVAPS AVAPS FiO2 40 40 40 40 07/12/25 07/12/25 07/12/25 07/12/25 15:40 16:00 16:10 16:40 Temp 98.1 Pulse 72 69 67 Resp 20 26 31 B/P (MAP) 121/44 112/46 114/51 Pulse Ox 100 100 95 95 O2 Delivery AVAPS Bi-PAP+ AVAPS Oxymizer O2 Flow Rate 4.0 FiO2 40 40 07/12/25 07/12/25 07/12/25 07/12/25 16:54 17:10 17:40 18:49 Pulse 84 63 62 65 Resp 22 32 29 22 B/P (MAP) 114/49 115/47 Pulse Ox 98 95 O2 Delivery N/Cannula Oximizer Hi LPM Oxymizer Oxymizer N/Cannula Oximizer Hi LPM O2 Flow Rate 4.0 4.0 4.0 4.0 FiO2 36 36 07/12/25 07/12/25 07/12/25 07/12/25 18:49 19:00 19:39 20:00 Temp 98.2 Pulse 66 65 64 Resp 27 26 31 B/P (MAP) 109/47 109/42 122/48 Pulse Ox 96 94 O2 Delivery Oxymizer Oxymizer O2 Flow Rate 4.0 4.0 Intake & Output (last 24hrs) 07/11/25 07/11/25 07/12/25 15:00 23:00 07:00 Intake Total 102.0 ml Output Total 1000 ml Balance -898.0 ml LABS: Laboratory: Test 07/12/25 17:36 07/12/25 16:41 07/12/25 09:40 07/12/25 03:37 Range/Units Group A Streptococcus Rapid negative NEGATIVE Blood Gas Specimen Type Arterial Arterial Blood pH 7.371 7.350-7.450 Arterial Blood Partial Pressure CO2 56 H 32-45 mmHg Arterial Blood Partial Pressure O2 102.8 83.0-108.0 mmHg Arterial Blood HCO3 31.4 H 21.0-28.0 mmol/L Arterial Blood Oxygen Saturation 97.5 94.0-98.0 % Arterial Blood Base Excess 4.6 H -2.0-3.0 mmol/L Blood Gas Temperature 37.0 35.5-37.0 CELSIUS Blood Gas Respiration Rate 26.0 min. Blood Gas Vent Mode AVAPS 15-.30 ROOM AIR FiO2 40.0 % Blood Gas Tidal Volume 450 ml Blood Gas PEEP 6 cm H2O Blood Gas Specimen Comment RR,ANN Hemoglobin (Blood Gas) 8.9 L 12.0-16.0 g/dL Sodium (Blood Gas) 139 136-145 MMOL/L Bedside Potassium (Blood Gas) 4.4 3.4-4.5 MMOL/L Bedside Chloride (Blood Gas) 103 98-107 MMOL/L Bedside Glucose (Blood Gas) 90 65-95 MG/DL Bedside Ionized Calcium (Blood Gas) 1.12 L 1.15-1.33 MMOL/L Bedside Lactic Acid (Blood Gas) 0.91 H 0.36-0.75 MMOL/L White Blood Count 29.9 #H 4.8-10.8 K/uL Red Blood Count 2.46 L 4.00-5.50 MIL/uL Hemoglobin 7.9 L 12.0-16.0 g/dL Hematocrit 26.4 L 36-48 % Mean Corpuscular Volume 107.3 H 79-99 fL Mean Corpuscular Hemoglobin 32.1 27.0-33.0 pg Mean Corpuscular Hemoglobin Concent 29.9 L 32.0-36.0 g/dL Red Cell Distribution Width 18.2 H 11.0-15.5 % Platelet Count 191 130-400 K/uL Mean Platelet Volume 10.1 7.5-10.5 fL Immature Granulocyte % (Auto) 3.9 H 0-1 % Neutrophils (%) (Auto) 85.7 H 40.0-77.0 % Lymphocytes (%) (Auto) 3.7 L 21.0-51.0 % Monocytes (%) (Auto) 6.3 3.0-13.0 % Eosinophils (%) (Auto) 0.1 0.0-8.0 % Basophils (%) (Auto) 0.3 0.0-5.0 % Neutrophils # (Auto) 25.6 H 1.8-7.7 K/uL Lymphocytes # (Auto) 1.1 1.0-4.8 K/uL Monocytes # (Auto) 1.9 H 0.1-1.0 K/uL Eosinophils # (Auto) 0.04 0.00-0.70 K/uL Basophils # (Auto) 0.09 0.00-0.20 K/uL Absolute Immature Granulocyte (auto 1.17 H 0-1 K/uL Nucleated Red Blood Cells 0.0 0.0-0.19 % Reticulocyte Count (auto) 4.88037 H 0.42-2.23 % Immature Reticulocyte Fraction 31.50 H 0.18-0.48 % Prothrombin Time 30.5 H 9.6-11.6 SEC Prothromb Time International Ratio 3.23 H 0.85-1.15 Sodium Level 141 136-145 mmol/L Potassium Level 4.9 3.5-5.1 mmol/L Chloride Level 103 101-111 mmol/L Carbon Dioxide Level 38 H 21-32 mmol/L Blood Urea Nitrogen 27 H 7-18 mg/dL Creatinine 1.3 H 0.5-1.0 mg/dL Glomerular Filtration Rate Calc 40 >90 mL/min Random Glucose 109 H 70-105 mg/dL Total Calcium 8.3 L 8.5-10.1 mg/dL Magnesium Level 2.00 1.80-2.40 mg/dL Iron Level 16 L 50-170 mcg/dL Total Iron Binding Capacity 411 250-450 mcg/dL Percent Iron Saturation 3.8 L 22-44 % Ferritin 106 15-150 ng/mL Total Bilirubin 0.7 0.2-1.0 mg/dL Aspartate Amino Transf (AST/SGOT) 35 10-37 U/L Alanine Aminotransferase (ALT/SGPT) 22 12-78 U/L Alkaline Phosphatase 64 50-136 U/L B-Type Natriuretic Peptide 1150 H 0-100 pg/mL Total Protein 6.6 6.0-8.3 g/dL Albumin 2.8 L 3.5-5.0 g/dL Vitamin B12 Level 620 193-986 pg/mL Folic Acid (LAB) > 20.00 H 2-20 ng/mL Procalcitonin 4.20 H 0.05-0.5 ng/mL Test 07/11/25 15:11 07/11/25 12:50 07/11/25 09:31 07/11/25 09:05 Range/Units Activated Partial Thromboplast Time 44.9 H 26.3-35.5 SEC Lactic Acid Level 1.3 0.8-2.5 mmol/L Blood Gas Flow-by 15.00 0.00-15.00 L/min White Cell Morphology Comment CONSISTENT W/DIFF Red Blood Cell Morphology See comments Total Creatine Kinase 73 21-232 U/L Troponin I High Sensitivity 19.1 4-50 ng/L C-Reactive Protein, Quantitative 7.30 H 0.5-3.0 mg/L Test 07/11/25 09:00 Range/Units Influenza Type A Antigen Negative For Type A NEGATIVE Influenza Type B Antigen Negative For Type B NEGATIVE SARS-CoV-2 Antigen (Rapid) PRESUMPTIVE NEGATIVE NEGATIVE DIAGNOSTICS / RADIOLOGY: PATIENT: PK BATEMAN ACCT: [id number] LOC: [facility] U: [id number] AGE/SX: 84/F ROOM: [facility] RE07/11/[address]: DAYANNA RODRIGUEZ MD : 1940 BED: 1 DIS: STATUS: ADM IN TLOC: SPEC: [id number] VINAYAK: 07/11/25 STATUS: RES REQ: [id number] RECD: 07/12/[address]: RUBEN BARTLETT DO SOURCE: BLOOD ENTR: 07/12/25-[address] [facility] [address]: VÍCTOR SPDESC: BLOOD JOVANNA ARMENTA MD ORDERED: AERO ID & SENS Procedure Result Kassandra Date-Time AEROBIC ID & SENSITIVITIES Preliminary 07/12/25-1159 MRL COLONY DESCRIPTION: REPORT 1: GRAM NEGATIVE RODS PEDIATRIC BOTTLE IDENTIFICATION AND SENSITIVITY TO FOLLOW Test(s) performed by: [facility] [address] [place] [address] ASSESSMENT: Gram-negative bacteremia. Acute hypoxic respiratory failure, requiring oxygen support. Pneumonia. Sepsis. Leukocytosis. Anemia. Renal failure. PLAN: Discontinue cefepime. Start Zosyn 3.375 g IV every 8 hours. Continue doxycycline. Continue GI prophylaxis. Continue IV steroids. Continue oxygen support, currently on BiPAP support. This case was reviewed and discussed with my supervising physician Dr. Lind and the above assessment and plan was formulated and agreed upon. ATTESTATION BY PHYSICIAN I have seen and examined the patient. I reviewed the documentation, medical decision making, and treatment plan as noted by the mid-level provider above. I agree with the findings and plan of care. DIAN LIND MD, MIRTA L [facility] Jul 12, 2025 21:57
[2025-07-13] VITALS (31 sets, daily range): BP systolic 90–118; BP diastolic 33–66; PULSE 62–92; RESP 7–102; TEMP 98–98.9; O2SAT 92–100
--- NOTE | 2025-07-13 04:16 | NUR ---
Based on ABG, pt requires the AVAPs. Pt states that she has not been able to sleep all night with the AVAPs in place. Explain reason for the AVAPS is to help control high CO2. As per RN, sedation will be given and will call when pt is ready. Pt is on 4LNC. No distress is noted at this time. Breakdown is noted on pt's nose. Addendum: 07/13/25 at 0531 by JERSON MERCADO, RT RT Amended: Links added.
[2025-07-13 04:17] LABS: ABG BASE EXCESS 5.1 mmol/L (-2.0-3.0); ABG HCO3 32.9 mmol/L (21.0-28.0); ABG OXYGEN SATURATION 97.7 % (94.0-98.0); ABG PH 7.290 (7.350-7.450); CARBON MONOXIDE 0.6 % (0.5-1.5); PO2, ARTERIAL BG 112.4 mmHg (83.0-108.0); TEMPERATURE, CELSIUS BG 37.0 CELSIUS (35.5-37.0); VENT MODE, BG 4LNC (ROOM AIR)
[2025-07-13] MEDS ORDERED: dexmedeTOMIDINE 200MCG/NS 50ML IV SCH (05:00)
[2025-07-13 05:14] LABS: ABG PCO2 70 mmHg (32-45)
[2025-07-13 05:43] LABS: IMMATURE GRANULOCYTE ABSOLUTE 0.34 K/uL (0-1); NUCLEATED RED BLOOD CELLS 0.0 % (0.0-0.19); PLATELET COUNT (AUTO) 189 K/uL (130-400); RED BLOOD CELL COUNT(AUTO) 2.43 MIL/uL (4.00-5.50); RED CELL DISTRIBUTION WIDTH 18.3 % (11.0-15.5); WHITE BLOOD COUNT (AUTO) 21.2 K/uL (4.8-10.8)
[2025-07-13 06:02] LABS: INR 3.91 (0.85-1.15)
[2025-07-13 06:07] LABS: ASPARTATE AMINOTRANSFERASE 27.0 U/L (10-37); CREATININE 1.3 mg/dL (0.5-1.0); GLOMERULAR FILTR. RATE CALC 40.0 mL/min (>90); GLUCOSE,RANDOM 137.0 mg/dL (70-105); SODIUM SERUM 139.0 mmol/L (136-145); TOTAL PROTEIN, SERUM 6.8 g/dL (6.0-8.3); UREA NITROGEN, BLOOD 30.0 mg/dL (7-18)
--- NOTE | 2025-07-13 06:53 | PN ---
[facility] Cardiology Progress Note CARDIOLOGY PROGRESS NOTE 2024 Problems: 1. Acute respiratory failure with BNP of 223, probably normal for age 2. Right upper lobe pneumonia 3. Sepsis 4. Mitral regurgitation status post [place] mechanical mitral valve replacement July 2011 with normal coronary arteries at that time with LV ejection fraction of 55-60% and grade diastolic left ventricular dysfunction by echo this admission 5. Persistent atrial fibrillation 6. Chronic anticoagulation with warfarin 7. AV node ablation 2008 8. 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 Acute on chronic kidney disease stage IIIB Blood pressure running 796279 systolic rate 70s. [place] [address]14 1000. Hemoglobin 7 nine microcytic indices. Platelet count 77528. Potassium 4.5 BUN 30 creatinine 1.3. BUN has been rising from 26 to 27 now 30. As noted venous Doppler was negative for deep vein thrombosis and 2D echocardiogram shows ejection fraction of 55-60% with grade diastolic left ventricular dysfunction. The prosthetic mitral valve is well seated with a mean gradient of 4 mm Hg. There was no significant aortic regurgitation and trace mitral regurgitation. She has moderate tricuspid regurgitation. RV systolic pressure of52 mm Hg consistent with moderate pulmonary hypertension. Right ventricle is dilated but showed normal systolic function. The patient continues on albuterol allopurinol atorvastatin carvedilol antibiotics furosemide 40 mg b.i.d. which is her home dose of diuretic. Solu-Medrol pantoprazole potassium protocol and warfarin2 mg daily. INR today is 3.9 and warfarin will be held today. INR has jumped despite dramatic reduction in her warfarin dose. She is currently resting comfortably on nasal cannula. Denies any chest pain. On examination valve sounds are crisp. Plan is as above. MOR RED MD Jul 13, 2025 06:53
[2025-07-13] MEDS: THIAMINE HCL 100 MG/ML 2ML VIAL IVP SCH (08:52)
--- NOTE | 2025-07-13 09:42 | PN ---
[facility] PROGRESS NOTE Date Patient Seen: Jul 13, 2025 Time of Visit: 09:42 Supervising Physician: [ MISTY PHAM ] Primary Care Physician: JOVANNA ARMENTA Outpatient Specialists: Inpatient Consults: DR LELO HYMAN ATTENDING PHYSICIAN: YUMIKO PROBLEM LIST: Acute hypoxemic respiratory failure on BiPAP, IMPROVING History of congestive heart failure with MECHANICAL mitral valve replacement Atrial fibrillation supra-therapeutic INR Advanced pulmonary fibrosis, oxygen dependent Right upper lobe pneumoniae, POA suspected aspiration Acute on chronic anemia BINU on chronic kidney disease Pulmonary Fibrosis Sepsis (tachypnea, leukocytosis, fever on presentation) INTERVAL HISTORY: 07/13 Chart reviewed including all laboratory and imaging results. White count continues trending down 21.2 today H&H is 7.9/25.9 seems stable platelet count of 189 K. Neutrophils 94.8. Creatinine of 1.3 GFR of 40 similar to yesterday BNP of 223 decreased from 1150. Latest ABG shows a pH of 7.29, PO2 of 112 bicarb of 32.9. Denies chest pain, palpitation, or shortness for breath. Currently on 4 L via Oxymizer in no apparent respiratory distress respiratory rate of 21 saturating 99% on 4 L. we will continue AVAPS PRN and HS. Hemodynamically stable. Patient had episode of confusion overnight as per RN. Decrease Solu-Medrol to 40 mg b.i.d. start physical therapy. Start clear liquid diet as tolerated. Downgrade to PCCU floor to avoid delirium. REVIEW OF SYSTEMS: 12 point ROS reviewed with patient. Pertinent positives mentioned above. Otherwise negative. PHYSICAL EXAM: GENERAL: alert, weak, awake oriented x 3 HEENT: EOMI, Sclera non icteric, moist mucosa NECK: Supple, no JVD, trachea midline LUNGS: Diminished breath sounds bilaterally. No wheezes HEART: Regular rate and rhythm. Normal S1 and S2, without murmurs ABD: Abdomen soft, nontender. Bowel sounds present EXT: No clubbing cyanosis or edema NEURO: Alert and oriented to person, follows commands Vital Signs (last 8hr) Date Time Temp Pulse Resp B/P (MAP) Pulse Ox O2 Delivery O2 Flow Rate FiO2 07/13/25 07:40 98.1 69 19 90/34 94 OXYMIZER 4.0 07/13/25 07:10 63 19 99/34 92 OXYMIZER 4.0 07/13/25 06:58 76 22 N/Cannula Oximizer Hi LPM 4.0 36 07/13/25 06:58 75 27 07/13/25 05:00 73 18 111/39 95 OXYMIZER 4.0 07/13/25 04:30 72 24 114/51 95 OXYMIZER 4.0 07/13/25 04:00 98.4 63 14 112/49 95 OXYMIZER 4.0 07/13/25 04:00 92 Bi-PAP+ 40 07/13/25 03:30 70 11 116/49 95 OXYMIZER 4.0 07/13/25 03:00 68 22 114/49 93 OXYMIZER 4.0 07/13/25 02:30 68 28 109/43 94 AVAAPS 40 07/13/25 02:00 79 12 110/58 95 AVAAPS 40 LABS: Hematology Labs: Test 07/13/25 05:22 07/12/25 03:37 Range/Units White Blood Count 21.2 H 4.8-10.8 K/uL Red Blood Count 2.43 L 4.00-5.50 MIL/uL Hemoglobin 7.9 L 12.0-16.0 g/dL Hematocrit 25.9 L 36-48 % Mean Corpuscular Volume 106.6 H 79-99 fL Mean Corpuscular Hemoglobin 32.5 27.0-33.0 pg Mean Corpuscular Hemoglobin Concent 30.5 L 32.0-36.0 g/dL Red Cell Distribution Width 18.3 H 11.0-15.5 % Platelet Count 189 130-400 K/uL Mean Platelet Volume 10.8 H 7.5-10.5 fL Immature Granulocyte % (Auto) 1.6 H 0-1 % Neutrophils (%) (Auto) 94.8 H 40.0-77.0 % Lymphocytes (%) (Auto) 2.0 L 21.0-51.0 % Monocytes (%) (Auto) 1.5 L 3.0-13.0 % Eosinophils (%) (Auto) 0.0 0.0-8.0 % Basophils (%) (Auto) 0.1 0.0-5.0 % Neutrophils # (Auto) 20.1 H 1.8-7.7 K/uL Lymphocytes # (Auto) 0.4 L 1.0-4.8 K/uL Monocytes # (Auto) 0.3 0.1-1.0 K/uL Eosinophils # (Auto) 0.00 0.00-0.70 K/uL Basophils # (Auto) 0.02 0.00-0.20 K/uL Absolute Immature Granulocyte (auto 0.34 0-1 K/uL Nucleated Red Blood Cells 0.0 0.0-0.19 % Reticulocyte Count (auto) 4.34092 H 0.42-2.23 % Immature Reticulocyte Fraction 31.50 H 0.18-0.48 % Chemistry Labs: Test 07/13/25 05:22 07/12/25 03:37 07/11/25 12:50 Range/Units Sodium Level 139 136-145 mmol/L Potassium Level 4.5 3.5-5.1 mmol/L Chloride Level 101 101-111 mmol/L Carbon Dioxide Level 36 H 21-32 mmol/L Blood Urea Nitrogen 30 H 7-18 mg/dL Creatinine 1.3 H 0.5-1.0 mg/dL Glomerular Filtration Rate Calc 40 >90 mL/min Random Glucose 137 H 70-105 mg/dL Total Calcium 8.0 L 8.5-10.1 mg/dL Magnesium Level 1.90 1.80-2.40 mg/dL Total Bilirubin 0.7 0.2-1.0 mg/dL Aspartate Amino Transf (AST/SGOT) 27 10-37 U/L Alanine Aminotransferase (ALT/SGPT) 18 12-78 U/L Alkaline Phosphatase 63 50-136 U/L B-Type Natriuretic Peptide 223 H 0-100 pg/mL Total Protein 6.8 6.0-8.3 g/dL Albumin 2.6 L 3.5-5.0 g/dL Iron Level 16 L 50-170 mcg/dL Total Iron Binding Capacity 411 250-450 mcg/dL Percent Iron Saturation 3.8 L 22-44 % Ferritin 106 15-150 ng/mL Vitamin B12 Level 620 193-986 pg/mL Folic Acid (LAB) > 20.00 H 2-20 ng/mL Procalcitonin 4.20 H 0.05-0.5 ng/mL Lactic Acid Level 1.3 0.8-2.5 mmol/L Coagulation Labs: Test 07/13/25 05:22 07/11/25 15:11 Range/Units Prothrombin Time 36.2 *H 9.6-11.6 SEC Prothromb Time International Ratio 3.91 *H 0.85-1.15 Activated Partial Thromboplast Time 44.9 H 26.3-35.5 SEC DIAGNOSTICS / RADIOLOGY RESULTS: [ ] PLAN Continue BiPAP support HS and PRN Continue broad-spectrum antibiotics Zosyn per ID Follow ID recommendations monitor electrolytes Monitor H/H, transfuse PRN per hematology (goal Hgb >7.0) Holding Coumadin per cardiology due to supra-therapeutic INR at 3.91 Continue aspiration precautions, elevate head of bed 45 Daily labs including CBC, CMP, Mg, Phos DVT prophylaxis GI prophylaxis PT/OT eval once respiratory status stable NEURO: Minimize central acting medications as possible. Fall Precautions. Well lighted room through the day and minimize interruptions through the night to prevent acute delirium. PULMONARY: Supplemental 02 as needed Titrate Fio2 to keep Spo2 > or = 90% DuoNebs and CPT as needed IS hourly while awake for pulmonary hygiene Out of bed to chair as tolerated CARDIOVASCULAR: Follow hemodynamics. Titrate vasopressor to keep MAP >65 or systolic blood pressure >95mmHg LINES: PIV GI & NUTRITION: Continue nutritional support Aspirations precautions Prokinetic agents and laxatives as needed KIDNEYS & ELECTROLYTES: Strict monitoring of intake and output Daily weights Avoid nephrotoxic agents Monitor electrolytes and replace as needed Goal urine output of 30mL/hr or 0.5mL/kg/hr ENDOCRINE: Maintain blood glucose between 100-180 at all times. Insulin sliding scale for blood glucose management INFECTIOUS DISEASE: Trend temperature. Acuña-culture if febrile. Micro: [ ] Antibiotics: Zosyn HEMATOLOGY & COAGULATION: Monitor H&H. Keep Hgb > 7 Transfuse 1 unit of PRBC for Hgb < 7 Transfuse 1 pack of platelets of platelets < 20, 000 Watch for any signs and symptoms of bleeding SKIN: Pressure ulcer prevention per facility protocol Rehab: PT/OT Prophylaxis: GI: Protonix DVT: pt on warfarin on HOLD due to elevated Supra therapeutic INR Code Status: Full Resuscitation Disposition: PCCU Critical care time This patient required multiple bedside visits to manage the patient, review blood gases, coordinate with respiratory, nurses review radiology exams, talk to the family members. I personally spent 40 minutes of critical care time in treatment of this patient. This includes patient management, time at bedside, time reviewing tests, labs, appropriate images and studies, documentation, and patient care coordination. This time excludes separately billable procedures. SERA GONSALEZ [facility] Jul 13, 2025 09:42
--- NOTE | 2025-07-13 11:40 | NUR ---
[facility] ICU Skin Assessment: Patient assessed by wound healing team. Patient with no wounds or skin breakdown noted. Assessment and recommendations provided to primary nurse. Education provided. Addendum: 07/13/25 at 1424 by JIMMY WOOD RN RN/ Amended: Links added.
--- NOTE | 2025-07-13 12:07 | PN ---
The patient is an 84-year-old female with a history of mitral valve replacement, chronic congestive heart failure, atrial fibrillation, and advanced pulmonary fibrosis requiring supplemental oxygen at baseline. She presented to the emergency department with progressive shortness of breath and cough. She was hypoxemic on arrival, requiring escalation to BiPAP support. Initial evaluation demonstrated leukocytosis, anemia, BINU, and electrolyte derangements. Chest imaging suggested bilateral pneumonia. Patient improved significantly. Patient off BiPAP. Patient on nasal cannula. Patient receiving antibiotic treatment for her pneumonia and bacteremia. There is a plan to transfer her to medical floor. PHYSICAL EXAM VITALS: Vital Signs Date Time Temp Pulse Resp B/P (MAP) Pulse Ox O2 Delivery O2 Flow Rate FiO2 07/11/25 20:17 91/44 07/11/25 20:03 99.9 07/11/25 18:57 88 34 07/11/25 18:44 50 07/11/25 18:10 94 BIPAP 07/11/25 09:13 15 GENERAL: ALERT, ORIENTED EYES: PUPILS EQUAL/REACTIVE, EXTRAOCULAR MUSCLES INTCT RESPIRATORY: LUNGS CLEAR-AUSC/PERCUS CARDIOVASCULAR: REGULAR RATE, REGULAR RHYTHM NEUROLOGICAL: GROSSLY INTACT Assessment 1. Anemia. Hemoglobin level continue to be 8.4 g/deciliter 2. Leukocytosis 3. 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 Osteoporosis 5. Respiratory failure with the patient on BiPAP. Patient is a DO NOT INTUBATE. Plan 1. Low hemoglobin is stable. There is no need for blood product transfusion 2. Patient DO NOT INTUBATE. 3. Continue BiPAP as per sr vice president 4. Continue antibiotic treatment. The patient was pneumonia and bacteremia. It seems the patient doing very well at this time 5. I have long discussion with the patient and family member regarding the plan of care. I answer all question and concern and I spent more than 35 minutes. There was 2 family member in the room. I explained to them that she is stable from hematology point of view. The patient will need antibiotic treatment at least maybe 4 to 2 weeks. Patient to be treated as per infectious disease specialist Vitals/Labs Vital Signs Date Time Temp Pulse Resp B/P (MAP) Pulse Ox O2 Delivery O2 Flow Rate FiO2 07/13/25 11:22 68 27 07/13/25 11:21 N/Cannula Oximizer Hi LPM 4.0 36 07/13/25 10:00 112/53 100 9/24/25 07:40 98.1 Laboratory Tests 07/13/25 05:22 Medications Current Medications Albuterol 1 udvial ONCE ONCE IH Last administered on 07/11/25at 09:43; Start 07/11/25 at 09:00; Stop 07/11/25 at 09:01; Status DC Furosemide 40 mg ONCE ONCE IVP Last administered on 07/11/25at 09:41; Start 07/11/25 at 09:00; Stop 07/11/25 at 09:01; Status DC Piperacillin Sod/ Tazobactam Sod 3.375 gm ONCE ONCE IV Last administered on 07/11/25at 10:51; Start 07/11/25 at 10:00; Stop 07/11/25 at 10:01; Status DC Azithromycin 250 ml @ 250 mls/hr ONCE ONCE IVPB Last administered on 07/11/25at 10:56; Start 07/11/25 at 10:00; Stop 07/11/25 at 10:59; Status DC Lactated Ringer's 500 ml @ 0 mls/hr ONCE ONCE IV Last administered on 07/11/25at 10:51; Start 07/11/25 at 10:00; Stop 07/11/25 at 10:01; Status DC Acetaminophen 1,000 mg ONCE ONCE PO Last administered on 07/11/25at 10:56; Start 07/11/25 at 11:00; Stop 07/11/25 at 11:01; Status DC Lactulose 20 gm BID PRN PO; Start 07/11/25 at 11:00; Stop 08/10/25 at 10:59 Pantoprazole Sodium 40 mg BID IVP Last administered on 07/13/25at 08:52; Start 07/11/25 at 21:00; Stop 08/10/25 at 20:59 Acetaminophen 650 mg Q4H PRN PO Last administered on 07/11/25at 20:03; Start 07/11/25 at 11:00; Stop 08/10/25 at 10:59 Albuterol 1 UDVIAL Q6H PRN IH Last administered on 07/12/25at 11:13; Start 07/11/25 at 11:00; Stop 08/10/25 at 10:59 Cefepime HCl 2 gm Q24H IVPB Last administered on 07/11/25at 13:07; Start 07/11/25 at 11:00; Stop 07/12/25 at 12:08; Status DC Vancomycin HCl 1 gm Q12H IV; Start 07/11/25 at 11:00; Stop 07/11/25 at 11:02; Status DC Potassium Chloride 100 ml @ 100 mls/hr AD PRN IV; Start 07/11/25 at 11:30; Stop 08/10/25 at 11:29 Potassium Chloride 20 meq AD PRN PO; Start 07/11/25 at 11:30; Stop 08/10/25 at 11:29 Potassium Chloride 20 meq AD PRN PO; Start 07/11/25 at 11:30; Stop 08/10/25 at 11:29 Magnesium Sulfate 50 ml @ 0 mls/hr PROTOCOL PRN IV; Start 07/11/25 at 11:30; Stop 08/10/25 at 11:29 Furosemide 40 mg Q12H IV Last administered on 07/11/25at 20:03; Start 07/11/25 at 21:00; Stop 07/12/25 at 07:56; Status DC Warfarin Sodium 5 mg QMOWEFR PO; Start 07/11/25 at 16:00; Stop 07/11/25 at 15:37; Status DC Warfarin Sodium 2.5 mg QTUTHSA PO; Start 07/12/25 at 09:00; Stop 07/11/25 at 15:37; Status DC Carvedilol 3.125 mg BID PO; Start 07/11/25 at 21:00; Stop 08/10/25 at 20:59 Losartan Potassium 25 mg DAILY PO; Start 07/12/25 at 09:00; Stop 07/12/25 at 11:47; Status DC Atorvastatin Calcium 10 mg HS PO Last administered on 07/12/25at 20:00; Start 07/11/25 at 21:00; Stop 08/10/25 at 20:59 Docusate Sodium 100 mg BID PRN PO; Start 07/11/25 at 12:00; Stop 08/10/25 at 11:59 Folic Acid 1 mg DAILY PO; Start 07/12/25 at 09:00; Stop 07/12/25 at 09:40; Status DC Ferrous Sulfate 325 mg DAILY PO Last administered on 07/13/25at 08:52; Start 07/12/25 at 09:00; Stop 08/11/25 at 08:59 Warfarin Sodium 2.5 mg QSU PO; Start 07/17/25 at 09:00; Stop 07/11/25 at 15:37; Status DC Doxycycline Hyclate 100 mg BID PO Last administered on 07/13/25at 08:52; Start 07/11/25 at 21:00; Stop 07/21/25 at 20:59 Sodium Chloride 4 ml STK-MED ONCE IH Last administered on 07/11/25at 13:58; Start 07/11/25 at 13:39; Stop 07/11/25 at 13:39; Status DC Acetaminophen 650 mg Q6H PRN PO Last administered on 07/11/25at 15:31; Start 07/11/25 at 15:30; Stop 08/10/25 at 15:29 Lidocaine 1 each Q24H TP Last administered on 07/12/25at 15:24; Start 07/11/25 at 16:00; Stop 08/10/25 at 15:59 Allopurinol 50 mg Q48H PO; Start 07/12/25 at 09:00; Stop 08/11/25 at 08:59 Sodium Chloride 4 ml STK-MED ONCE IH Last administered on 07/11/25at 18:40; Start 07/11/25 at 18:31; Stop 07/11/25 at 18:32; Status DC Sodium Chloride 4 ml STK-MED ONCE IH Last administered on 07/11/25at 23:22; Start 07/11/25 at 23:13; Stop 07/11/25 at 23:13; Status DC Warfarin Sodium 2 mg WARF PO Last administered on 07/12/25at 15:23; Start 07/12/25 at 16:00; Stop 07/13/25 at 06:54; Status DC Furosemide 40 mg BID@09,17 PO Last administered on 07/13/25at 08:52; Start 07/12/25 at 09:00; Stop 08/11/25 at 08:59 Metronidazole/ Sodium Chloride 100 ml @ 100 mls/hr Q8H IVPB Last administered on 07/12/25at 10:02; Start 07/12/25 at 10:00; Stop 07/12/25 at 15:27; Status DC Thiamine HCl 100 mg DAILY IVP Last administered on 07/13/25at 08:52; Start 07/13/25 at 09:00; Stop 08/12/25 at 08:59 Piperacillin Sod/ Tazobactam Sod 3.375 gm Q8H IV Last administered on 07/13/25at 11:59; Start 07/12/25 at 12:30; Stop 07/22/25 at 12:29 Methylprednisolone Sodium Succinate 40 mg Q8H IVP Last administered on 07/13/25at 06:37; Start 07/12/25 at 15:30; Stop 07/13/25 at 09:37; Status DC Albuterol 1 udvial [id number] IH Last administered on 07/13/25at 11:21; Start 07/12/25 at 18:00; Stop 08/11/25 at 17:59 Morphine Sulfate 1 mg ONCE ONCE IVP Last administered on 07/13/25at 02:52; Start 07/13/25 at 03:00; Stop 07/13/25 at 03:01; Status DC Dexmedetomidine/ Sodium Chloride 200 mcg PROTOCOL IV; Start 07/13/25 at 05:00; Stop 07/13/25 at 04:45; Status DC Dexmedetomidine/ Sodium Chloride 400 mcg PROTOCOL IV Last administered on 07/13/25at 04:55; Start 07/13/25 at 05:00; Stop 08/12/25 at 04:59 Methylprednisolone Sodium Succinate 40 mg Q12H IVP; Start 07/13/25 at 19:30; Stop 08/11/25 at 15:29 LYDIA PAUL MD Jul 13, 2025 12:07
--- NOTE | 2025-07-13 12:58 | PN ---
[facility] PROGRESS NOTE Date of Service: Jul 13, 2025 Time of Service: 12:53 SUBJECTIVE: [ ] This is a 84-year-old female that presents in ED with chief complaints of shortness a breath. She was brought in by EMS in route patient was placed on non-rebreather. Patient has past medical history of congestive heart failure mitral valve replacement on Coumadin, AFib, advanced pulmonary fibrosis oxygen dependent. Onset shortness a breath has been gradually and progressed over the weekend. Severity severe aggravating factors activity laying flat. Alleviating factors none. Associated symptoms productive cough, mild chills overnight. Patient reports choking with thin liquids. Patient was admitted a month ago at [facility] for similar symptoms. Patient follows test developer's Dr. Sachin Maynard MD. [facility] primary temperature logging operator's Dr. Stevens. Spoke with RIRI: Neva Garrison modified DNR on this admission 07/12/25 patient was seen earlier patient continues on AVPS support. Primary n francisco reports patient desat this printed circuit boards plasma etcher: Clinical Lab Clerk doing trails goal to titrated Titrate Fio2 to keep Spo2 > or = 90%. president & founder consulted for nutritional support recommendations . the patient is fully awake and alert. I discussed Hospice Palliative care and LTAC with RIRI Garrison. WE will continue to monitor patient progress. critical care following: goal to Titrate Fio2 to keep Spo2 > or = 90% Weaned Bipap. 07/13/25 patient was seen earlier. Case management discussed LTAC with medical [id number] and she agreed for patient to be transitioned to LTAC. Patient needs three nights of telemetry be completed tomorrow. Patient continues on BiPAP support continues with trials. Continues broad broad- spectrum antibiotics. Patient was evaluated by speech was started on pureed diet. REVIEW OF SYSTEMS A 12 point ROS obtained all relevant positive documented otherwise ROS negative PHYSICAL EXAM GENERAL APPEARANCE: The patient is awake, alert, and oriented, acute cardiopulmonary distress on Bipap support NEUROLOGICAL: Cranial nerves II-XII grossly intact. Motor is 5/5 in bilateral upper and lower extremities proximal to distal. No sensory deficits. HEENT: Face is symmetric. Pupils are equal and reactive. Extraocular movements are intact. NECK: Supple. No JVD. No thyromegaly. No submental, submandibular, pre- /postauricular, occipital or supraclavicular lymphadenopathy. CHEST: Normal chest expansion. ++Telemetry. LUNGS:++ rales, rhonchi CARDIOVASCULAR: Regular. S1 and S2 normal. No appreciable rubs, murmurs or gallops. ABDOMEN: Soft, nontender, and nondistended. There is no rebound, voluntary guarding, or rigidity. : Deferred. No Cantu. EXTREMITIES: slight-edematous lower ext. and not cyanotic. No clubbing. Good capillary refill. SKIN: No skin breakdown. Vital Signs (last 8hr) Date Time Temp Pulse Resp B/P (MAP) Pulse Ox O2 Delivery O2 Flow Rate FiO2 07/13/25 11:22 68 27 07/13/25 11:21 68 19 N/Cannula Oximizer Hi LPM 4.0 36 07/13/25 10:00 69 22 112/53 100 OXYMIZER 07/13/25 09:00 62 21 110/46 98 OXYMIZER 07/13/25 08:00 96 Nasal Cannula* 4 36 07/13/25 08:00 81 15 91/33 94 OXYMIZER 07/13/25 07:40 98.1 69 19 90/34 94 OXYMIZER 4.0 07/13/25 07:10 63 19 99/34 92 OXYMIZER 4.0 07/13/25 06:58 76 22 N/Cannula Oximizer Hi LPM 4.0 36 07/13/25 06:58 75 27 07/13/25 05:00 73 18 111/39 95 OXYMIZER 4.0 LABS: Laboratory: Test 07/13/25 05:22 07/13/25 04:16 07/12/25 17:36 07/12/25 16:41 Range/Units White Blood Count 21.2 H 4.8-10.8 K/uL Red Blood Count 2.43 L 4.00-5.50 MIL/uL Hemoglobin 7.9 L 12.0-16.0 g/dL Hematocrit 25.9 L 36-48 % Mean Corpuscular Volume 106.6 H 79-99 fL Mean Corpuscular Hemoglobin 32.5 27.0-33.0 pg Mean Corpuscular Hemoglobin Concent 30.5 L 32.0-36.0 g/dL Red Cell Distribution Width 18.3 H 11.0-15.5 % Platelet Count 189 130-400 K/uL Mean Platelet Volume 10.8 H 7.5-10.5 fL Immature Granulocyte % (Auto) 1.6 H 0-1 % Neutrophils (%) (Auto) 94.8 H 40.0-77.0 % Lymphocytes (%) (Auto) 2.0 L 21.0-51.0 % Monocytes (%) (Auto) 1.5 L 3.0-13.0 % Eosinophils (%) (Auto) 0.0 0.0-8.0 % Basophils (%) (Auto) 0.1 0.0-5.0 % Neutrophils # (Auto) 20.1 H 1.8-7.7 K/uL Lymphocytes # (Auto) 0.4 L 1.0-4.8 K/uL Monocytes # (Auto) 0.3 0.1-1.0 K/uL Eosinophils # (Auto) 0.00 0.00-0.70 K/uL Basophils # (Auto) 0.02 0.00-0.20 K/uL Absolute Immature Granulocyte (auto 0.34 0-1 K/uL Nucleated Red Blood Cells 0.0 0.0-0.19 % Prothrombin Time 36.2 *H 9.6-11.6 SEC Prothromb Time International Ratio 3.91 *H 0.85-1.15 Sodium Level 139 136-145 mmol/L Potassium Level 4.5 3.5-5.1 mmol/L Chloride Level 101 101-111 mmol/L Carbon Dioxide Level 36 H 21-32 mmol/L Blood Urea Nitrogen 30 H 7-18 mg/dL Creatinine 1.3 H 0.5-1.0 mg/dL Glomerular Filtration Rate Calc 40 >90 mL/min Random Glucose 137 H 70-105 mg/dL Total Calcium 8.0 L 8.5-10.1 mg/dL Magnesium Level 1.90 1.80-2.40 mg/dL Total Bilirubin 0.7 0.2-1.0 mg/dL Aspartate Amino Transf (AST/SGOT) 27 10-37 U/L Alanine Aminotransferase (ALT/SGPT) 18 12-78 U/L Alkaline Phosphatase 63 50-136 U/L B-Type Natriuretic Peptide 223 H 0-100 pg/mL Total Protein 6.8 6.0-8.3 g/dL Albumin 2.6 L 3.5-5.0 g/dL Blood Gas Specimen Type Arterial Arterial Blood pH 7.290 L 7.350-7.450 Arterial Blood Partial Pressure O2 112.4 H 83.0-108.0 mmHg Arterial Blood HCO3 32.9 H 21.0-28.0 mmol/L Arterial Blood Oxygen Saturation 97.7 94.0-98.0 % Arterial Blood Base Excess 5.1 H -2.0-3.0 mmol/L Hemoglobin (Blood Gas) 9.1 L 12.0-16.0 g/dL Sodium (Blood Gas) 140 136-145 MMOL/L Bedside Potassium (Blood Gas) 4.4 3.4-4.5 MMOL/L Bedside Chloride (Blood Gas) 101 98-107 MMOL/L Bedside Glucose (Blood Gas) 141 H 65-95 MG/DL Bedside Ionized Calcium (Blood Gas) 1.11 L 1.15-1.33 MMOL/L Bedside Lactic Acid (Blood Gas) 1.29 H 0.36-0.75 MMOL/L Blood Gas Temperature 37.0 35.5-37.0 CELSIUS Blood Gas Flow-by 4.00 0.00-15.00 L/min Blood Gas Vent Mode 4LNC ROOM AIR FiO2 36.0 % Blood Gas Specimen Comment WILBER RN, RR Group A Streptococcus Rapid negative NEGATIVE Blood Gas Respiration Rate 26.0 min. Blood Gas Tidal Volume 450 ml Blood Gas PEEP 6 cm H2O Test 07/12/25 03:37 07/11/25 15:11 Range/Units Reticulocyte Count (auto) 4.67910 H 0.42-2.23 % Immature Reticulocyte Fraction 31.50 H 0.18-0.48 % Iron Level 16 L 50-170 mcg/dL Total Iron Binding Capacity 411 250-450 mcg/dL Percent Iron Saturation 3.8 L 22-44 % Ferritin 106 15-150 ng/mL Vitamin B12 Level 620 193-986 pg/mL Folic Acid (LAB) > 20.00 H 2-20 ng/mL Procalcitonin 4.20 H 0.05-0.5 ng/mL Activated Partial Thromboplast Time 44.9 H 26.3-35.5 SEC Current Medications Medications (Trade) Dose Ordered Sig/Macey Route PRN Reason Start Time Stop Time Status Last Admin Dose Admin Acetaminophen (TYLenol 325MG TAB) 650 mg Q4H PRN PO TEMPERATURE GREATER THAN 101.5 07/11/25 11:00 08/10/25 10:59 07/11/25 20:03 650 MG Acetaminophen (TYLenol 325MG TAB) 650 mg Q6H PRN PO MILD PAIN (1-3) 07/11/25 15:30 08/10/25 15:29 07/11/25 15:31 650 MG Albuterol (DUOneb) 1 UDVIAL Q6H PRN IH SHORTNESS OF BREATH 07/11/25 11:00 08/10/25 10:59 07/12/25 11:13 1 UDVIAL Albuterol (DUOneb) 1 udvial [id number] IH 07/12/25 18:00 08/11/25 17:59 07/13/25 11:21 1 UDVIAL Allopurinol (ZYLOprim 100MG) 50 mg Q48H PO 07/12/25 09:00 08/11/25 08:59 Atorvastatin Calcium (LIPItor 10MG) 10 mg HS PO 07/11/25 21:00 08/10/25 20:59 07/12/25 20:00 10 MG Carvedilol (Coreg 3.125MG) 3.125 mg BID PO 07/11/25 21:00 08/10/25 20:59 Cefepime HCl (MAXipime 2 gm vial) 2 gm Q24H IVPB 07/11/25 11:00 07/12/25 12:08 DC 07/11/25 13:07 2 GM Dexmedetomidine/ Sodium Chloride (PRECEdex 200MCG/ 50ML-NS) 200 mcg PROTOCOL IV 07/13/25 05:00 07/13/25 04:45 DC Dexmedetomidine/ Sodium Chloride (PRECEdex 400MCG/ 100ML-NS) 400 mcg PROTOCOL IV 07/13/25 05:00 08/12/25 04:59 07/13/25 04:55 400 MCG Docusate Sodium (COLace 100MG CAP) 100 mg BID PRN PO CONSTIPATION 07/11/25 12:00 08/10/25 11:59 Doxycycline Hyclate (Doxycycline Hyclate) 100 mg BID PO 07/11/25 21:00 07/21/25 20:59 07/13/25 08:52 100 MG Ferrous Sulfate (Ferrous Sulfate) 325 mg DAILY PO 07/12/25 09:00 08/11/25 08:59 07/13/25 08:52 325 MG Folic Acid (FOLic ACID 1 MG TABLET) 1 mg DAILY PO 07/12/25 09:00 07/12/25 09:40 DC Furosemide (LASix 40MG TAB) 40 mg BID@09,17 PO 07/12/25 09:00 08/11/25 08:59 07/13/25 08:52 40 MG Furosemide (LASix 40MG VIAL) 40 mg Q12H IV 07/11/25 21:00 07/12/25 07:56 DC 07/11/25 20:03 40 MG Lactulose (Constulose 20gm/ 30ml Udcup) 20 gm BID PRN PO CONSTIPATION 07/11/25 11:00 08/10/25 10:59 Lidocaine (Lidocaine Patch 4%) 1 each Q24H TP 07/11/25 16:00 08/10/25 15:59 07/12/25 15:24 1 EACH Losartan Potassium (CozAAR 25MG TAB) 25 mg DAILY PO 07/12/25 09:00 07/12/25 11:47 DC Magnesium Sulfate 50 ml @ 0 mls/hr PROTOCOL PRN IV low mag level 07/11/25 11:30 08/10/25 11:29 Methylprednisolone Sodium Succinate (Solu-medROL 40MG) 40 mg Q12H IVP 07/13/25 19:30 08/11/25 15:29 Methylprednisolone Sodium Succinate (Solu-medROL 40MG) 40 mg Q8H IVP 07/12/25 15:30 07/13/25 09:37 DC 07/13/25 06:37 40 MG Metronidazole/ Sodium Chloride 100 ml @ 100 mls/hr Q8H IVPB 07/12/25 10:00 07/12/25 15:27 DC 07/12/25 10:02 100 MLS/HR Pantoprazole Sodium (PROTonix 40MG INJ) 40 mg BID IVP 07/11/25 21:00 08/10/25 20:59 07/13/25 08:52 40 MG Piperacillin Sod/ Tazobactam Sod (Zosyn 3.375gm+NS 50ml) 3.375 gm Q8H IV 07/12/25 12:30 07/22/25 12:29 07/13/25 11:59 3.375 GM Potassium Chloride 100 ml @ 100 mls/hr AD PRN IV POTASSIUM PROTOCOL 07/11/25 11:30 08/10/25 11:29 Potassium Chloride (K-Dur/Klor-Con 20meq) 20 meq AD PRN PO POTASSIUM PROTOCOL 07/11/25 11:30 08/10/25 11:29 Potassium Chloride (KCl 10% Elixir 20meq/15ml) 20 meq AD PRN PO POTASSIUM PROTOCOL 07/11/25 11:30 08/10/25 11:29 Thiamine HCl (Vitamin B-1) 100 mg DAILY IVP 07/13/25 09:00 08/12/25 08:59 07/13/25 08:52 100 MG Vancomycin HCl (Vancomycin 1g/ 250ml Kit) 1 gm Q12H IV 07/11/25 11:00 07/11/25 11:02 DC Warfarin Sodium (Coumadin) 2 mg WARF PO 07/12/25 16:00 07/13/25 06:54 DC 07/12/25 15:23 2 MG Warfarin Sodium (Coumadin) 2.5 mg QSU PO 07/17/25 09:00 07/11/25 15:37 DC Warfarin Sodium (Coumadin) 2.5 mg QTUTHSA PO 07/12/25 09:00 07/11/25 15:37 DC Warfarin Sodium (Coumadin) 5 mg QMOWEFR PO 07/11/25 16:00 07/11/25 15:37 DC DIAGNOSTICS / RADIOLOGY: [ ] ASSESSMENT: Acute respiratory failure with hypoxia POA requiring oxygen supplemental BiPAP support Suspecting aspiration pneumonia POA History advanced pulmonary fibrosis POA Home oxygen dependent POA acute CHF on Chronic CHF with Mitral value replacement Hypercoagulable state on Coumadin secondary to MVR persistent A fibb on Warfarin pOA Sepsis( temperature 103.6 heart rate 115 respirations 26) POA gram negative bacteremia POA BINU on chronic renal failure POA Acute anemia on chronic anemia POA debility with physical deconditioning PLAN: [ ] Admit: ICU condition: Guarded Status: MODIFIED DNR IVF: heplock Diet: Clear liquid diet Consultants critical team, temperature logging operator and substitute teacher Antibiotics: Zosyn 3.375 gm IV q8 hrs,. continue to monitor WBC's trends, afebrile Microbiology: blood cultures growing gram negative robyn: repeat cultures 2 set 15 min apart in reference Resp failure with RUL pneumonia: Duo nebs as needed; IV steroids oxygen supplemental to keep O2 saturations above 92% Aspiration precautions head of the bed at 45 at all times, Labs cbc, cmp, mag+ in a.m. Replace electrolytes as needed as per protocol to keep potassium above 4.0 magnesium 2.0. avoid NSAIDS and renal dose medication fluid restriction1.5 liter daily strict I/O on Lasix IV bid 40 mg Home medications reviewed and reconciled Coumadin dosage change to low dose per DR Stevens: 2 mg goal to INR between 2- 1/2 to 3-1/2. daily INR will monitor H/H trends transfuse to keep HGB above 7. Employment Security Officer following president & founder consulted for nutritional support continue with carvedilol 3.125 mg p.o. b.i.d. for rate control continue Folic acid 1 mg po daily and ferrous sulfate 325 mg po daily Supportive measures: DVT ppx, GI ppx case management LTAC needs one more night telemetry all questions answered time spent: > 35 min Supervising MD: Dr. Osorio c/d This document was generated in part using voice recognition software, occasional wrong word or sound alike substitutions may have occurred due to the inherent limitations of voice recognition software. Read the chart carefully and recognize using context, where the substitutions have occurred. Although every effort was made to edit the content, pouch making machine operator and typing errors may occur ATTESTATION BY PHYSICIAN I have seen and examined the patient. I reviewed the documentation, medical decision making, and treatment plan as noted by the mid-level provider above. I agree with the findings and plan of care. DAYANNA OSORIO MD, ELIZABETH NP Jul 13, 2025 12:58
--- NOTE | 2025-07-13 13:59 | NUR ---
As per Dr. Lenz no PICC for now until blood cultures negative. x2
--- NOTE | 2025-07-13 15:31 | NUR ---
Nutritional Note: Chart, meds, and labs Reviewed. TANK WORKER 07/11/25 recommendations: Recommend NPO, short term alternate means of nutrition/hydration. Recommend: -When medically feasible advance diet to 75gm cc diet texture as per TANK WORKER recommendations. -If unable to advance diet consider TF, preferred if GI tract functional. -Vital AF -Start TF @20ml x 6hrs and then increase by 5ml q 4hr to goal rate 50 ml/hr. If residual >500 ml stop TF for 2 hours and then restart if residual continues to be >500 ml stop TF and notify MD 24 TF total provides: 1440kcal, 90gm/pro, and 973total free H20/day. -250ml H20 flush q 6 or H20 flush as per MD. Reassess based on I/Os and renal function. -adult MVI - Electrolyte replacements per protocol -Monitor feeding tolerance, %, wt, and labs -Document PO intake and wt daily. -If No BM >3days consider bowel stimulant. -Consider appetite stimulant if intake remains <75%for 3 days. -Schedule outpatient RD f/u for long-term nutrition . - Notify RD if additional nutrition concerns arise. SEE RD Nutritional Assessment for additional assessment information. Addendum: 07/13/25 at [address] Amended: Links added.
--- NOTE | 2025-07-13 16:00 | NUR ---
BEDSIDE SWALLOW EVAL COMPLETED. No s/s of aspiration. Recommend regular solids, thin liquids and pills whole with liquids as tolerated. SENIOR STRATEGY MANAGER reviewed results and recommendations with patient and nurse George. SENIOR STRATEGY MANAGER educated patient on risks and consequences of aspiration. Speech therapy not warranted at this time. All questions answered. Addendum: 07/13/[address] [facility] Amended: Links added.
[2025-07-13] MEDS: Solu-medROL 40MG VIAL IVP SCH (18:42)
--- NOTE | 2025-07-13 19:32 | HMCIMG ---
EXAM: CT Chest Without Intravenous Contrast. CLINICAL HISTORY: 84-year-old female with pulmonary fibrosis. TECHNIQUE: Axial computed tomography images of the chest without intravenous contrast. Dose reduction technique was used including one or more of the following: automated exposure control, adjustment of mA and kV according to patient size, and/or iterative reconstruction. CONTRAST: Without. COMPARISON: Prior XR 07/13/2025 04:22 am. FINDINGS: LUNGS: Pulmonary fibrosis. Patchy consolidation in the right lower lobe and right middle lobe suggesting pneumonia. No pulmonary mass. PLEURAL SPACES: Small right pleural effusion. Small left effusion. No pneumothorax. HEART AND MEDIASTINUM: No cardiomegaly. No significant pericardial effusion. Atherosclerotic aorta iliac bifurcation. LYMPH NODES: No lymphadenopathy. CHEST WALL AND UPPER ABDOMEN: Multiple gallstones seen. Atrophic right kidney. Sternotomy wires seen. The chest wall is unremarkable. BONES: Moderate degenerative changes in the lumbar spine with a compression deformity of T12 loss of height and 40 to 50%. Findings better appreciated from prior XR 07/13/2025 04:22 am. IMPRESSION: 1. Patchy consolidation in the right lower lobe and right middle lobe, suggesting pneumonia. 2. Pulmonary fibrosis. 3. Small right pleural effusion and small left effusion. 4. Findings better appreciated from prior XR 07/13/25 04:22 am. /[place]
[2025-07-13] MEDS: MELATONIN 5 MG TABLET PO ONE (20:33)
--- NOTE | 2025-07-13 22:43 | PN ---
INFECTIOUS DISEASE PROGRESS NOTE Date of Service: Jul 13, 2025 SUBJECTIVE: This is a 84-year-old female patient who remains in the ICU room 215. Patient is now tolerating oxygen via nasal cannula. Patient is awake, alert and answering questions appropriately. WBC is 21.2 and no fever reported throughout the night. The preliminary blood cultures growing Gram-negative rods. We will continue on Zosyn and doxycycline and follow up on the final culture results. We will repeat blood cultures and if negative we will place a PICC line. PHYSICAL EXAM EYES: Anicteric. Pupils equal and reactive. HENT: No oral thrush seen, moist Oral mucosa. NECK: Supple, no JVD or thyromegaly. LUNGS: Diminished breath sounds. Oxygen support. CARDIOVASCULAR: S1, S2 regular. No murmur heard. ABDOMEN: Soft, non tender, bowel sounds present, no organomegaly. CENTRAL NERVOUS SYSTEM: Awake, alert, oriented x 3. SKIN: No rashes, no swelling. LYMPHATICS: No peripheral lymphadenopathy. MUSCULOSKELETAL: No joint swelling, erythema or tenderness. EXTREMITIES: No cyanosis or clubbing. BACK: No deformity, no pressure ulcer. GENITOURINARY: No dysuria or hematuria. Cantu catheter. Vital Sign (Last 12 Hours) 07/13/25 07/13/25 07/13/25 07/13/25 11:21 11:22 11:45 13:00 Pulse 68 68 92 69 Resp 19 27 16 16 B/P (MAP) 118/53 110/49 Pulse Ox 97 99 O2 Delivery N/Cannula Oximizer Hi LPM OXYMIZER OXYMIZER O2 Flow Rate 4.0 4.0 4.0 FiO2 36 07/13/25 07/13/25 07/13/25 07/13/25 14:00 15:00 16:00 17:00 Temp 98.4 Pulse 72 66 66 78 Resp 7 21 64 17 B/P (MAP) 116/42 115/46 107/57 116/66 Pulse Ox 99 100 100 99 O2 Delivery OXYMIZER OXYMIZER OXYMIZER OXYMIZER O2 Flow Rate 4.0 4.0 4.0 4.0 07/13/25 07/13/25 07/13/25 07/13/25 18:00 19:00 19:15 19:15 Pulse 71 71 65 64 Resp 31 21 19 27 B/P (MAP) 110/42 111/45 Pulse Ox 96 100 O2 Delivery OXYMIZER OXYMIZER N/Cannula Oximizer Hi LPM O2 Flow Rate 4.0 4.0 4.0 FiO2 36 07/13/25 07/13/25 20:00 20:34 Temp 98.1 Pulse 72 Resp 20 B/P (MAP) 106/38 99/36 Pulse Ox 95 O2 Delivery OXYMIZER O2 Flow Rate 4.0 Intake & Output (last 24hrs) 07/12/25 07/12/25 07/13/25 15:00 23:00 07:00 Intake Total 246.5 ml 168.5 ml 8.5 ml Output Total 900 ml 800 ml Balance 246.5 ml -731.5 ml -791.5 ml LABS: Laboratory: Test 07/13/25 05:22 07/13/25 04:16 07/12/25 17:36 07/12/25 16:41 Range/Units White Blood Count 21.2 H 4.8-10.8 K/uL Red Blood Count 2.43 L 4.00-5.50 MIL/uL Hemoglobin 7.9 L 12.0-16.0 g/dL Hematocrit 25.9 L 36-48 % Mean Corpuscular Volume 106.6 H 79-99 fL Mean Corpuscular Hemoglobin 32.5 27.0-33.0 pg Mean Corpuscular Hemoglobin Concent 30.5 L 32.0-36.0 g/dL Red Cell Distribution Width 18.3 H 11.0-15.5 % Platelet Count 189 130-400 K/uL Mean Platelet Volume 10.8 H 7.5-10.5 fL Immature Granulocyte % (Auto) 1.6 H 0-1 % Neutrophils (%) (Auto) 94.8 H 40.0-77.0 % Lymphocytes (%) (Auto) 2.0 L 21.0-51.0 % Monocytes (%) (Auto) 1.5 L 3.0-13.0 % Eosinophils (%) (Auto) 0.0 0.0-8.0 % Basophils (%) (Auto) 0.1 0.0-5.0 % Neutrophils # (Auto) 20.1 H 1.8-7.7 K/uL Lymphocytes # (Auto) 0.4 L 1.0-4.8 K/uL Monocytes # (Auto) 0.3 0.1-1.0 K/uL Eosinophils # (Auto) 0.00 0.00-0.70 K/uL Basophils # (Auto) 0.02 0.00-0.20 K/uL Absolute Immature Granulocyte (auto 0.34 0-1 K/uL Nucleated Red Blood Cells 0.0 0.0-0.19 % Prothrombin Time 36.2 *H 9.6-11.6 SEC Prothromb Time International Ratio 3.91 *H 0.85-1.15 Sodium Level 139 136-145 mmol/L Potassium Level 4.5 3.5-5.1 mmol/L Chloride Level 101 101-111 mmol/L Carbon Dioxide Level 36 H 21-32 mmol/L Blood Urea Nitrogen 30 H 7-18 mg/dL Creatinine 1.3 H 0.5-1.0 mg/dL Glomerular Filtration Rate Calc 40 >90 mL/min Random Glucose 137 H 70-105 mg/dL Total Calcium 8.0 L 8.5-10.1 mg/dL Magnesium Level 1.90 1.80-2.40 mg/dL Total Bilirubin 0.7 0.2-1.0 mg/dL Aspartate Amino Transf (AST/SGOT) 27 10-37 U/L Alanine Aminotransferase (ALT/SGPT) 18 12-78 U/L Alkaline Phosphatase 63 50-136 U/L B-Type Natriuretic Peptide 223 H 0-100 pg/mL Total Protein 6.8 6.0-8.3 g/dL Albumin 2.6 L 3.5-5.0 g/dL Blood Gas Specimen Type Arterial Arterial Blood pH 7.290 L 7.350-7.450 Arterial Blood Partial Pressure O2 112.4 H 83.0-108.0 mmHg Arterial Blood HCO3 32.9 H 21.0-28.0 mmol/L Arterial Blood Oxygen Saturation 97.7 94.0-98.0 % Arterial Blood Base Excess 5.1 H -2.0-3.0 mmol/L Hemoglobin (Blood Gas) 9.1 L 12.0-16.0 g/dL Sodium (Blood Gas) 140 136-145 MMOL/L Bedside Potassium (Blood Gas) 4.4 3.4-4.5 MMOL/L Bedside Chloride (Blood Gas) 101 98-107 MMOL/L Bedside Glucose (Blood Gas) 141 H 65-95 MG/DL Bedside Ionized Calcium (Blood Gas) 1.11 L 1.15-1.33 MMOL/L Bedside Lactic Acid (Blood Gas) 1.29 H 0.36-0.75 MMOL/L Blood Gas Temperature 37.0 35.5-37.0 CELSIUS Blood Gas Flow-by 4.00 0.00-15.00 L/min Blood Gas Vent Mode 4LNC ROOM AIR FiO2 36.0 % Blood Gas Specimen Comment WILBER RN, RR Group A Streptococcus Rapid negative NEGATIVE Blood Gas Respiration Rate 26.0 min. Blood Gas Tidal Volume 450 ml Blood Gas PEEP 6 cm H2O Test 07/12/25 03:37 Range/Units Reticulocyte Count (auto) 4.99287 H 0.42-2.23 % Immature Reticulocyte Fraction 31.50 H 0.18-0.48 % Iron Level 16 L 50-170 mcg/dL Total Iron Binding Capacity 411 250-450 mcg/dL Percent Iron Saturation 3.8 L 22-44 % Ferritin 106 15-150 ng/mL Vitamin B12 Level 620 193-986 pg/mL Folic Acid (LAB) > 20.00 H 2-20 ng/mL Procalcitonin 4.20 H 0.05-0.5 ng/mL DIAGNOSTICS / RADIOLOGY: PATIENT: PK BATEMAN ACCT: [id number] LOC: [facility] U: [id number] AGE/SX: 84/F ROOM: [facility] RE07/11/[address]: DAYANNA RODRIGUEZ MD : 1940 BED: 1 DIS: STATUS: ADM IN TLOC: SPEC: [id number] VINAYAK: 07/11/25 STATUS: RES REQ: [id number] RECD: 07/12/25-[address]: RUBEN BARTLETT DO SOURCE: BLOOD ENTR: 07/12/25-[address]: NONE SPDESC: BLOOD JOVANNA ARMENTA MD ORDERED: AERO ID & SENS Procedure Result Kassandra Date-Time AEROBIC ID & SENSITIVITIES Preliminary 07/12/25-1159 MRL COLONY DESCRIPTION: REPORT 1: GRAM NEGATIVE RODS PEDIATRIC BOTTLE IDENTIFICATION AND SENSITIVITY TO FOLLOW Test(s) performed by: [facility] [address] [place] [address] ASSESSMENT: Gram-negative bacteremia. Acute hypoxic respiratory failure, requiring oxygen support. Pneumonia. Sepsis. Leukocytosis. Anemia. Renal failure. PLAN: Continue Zosyn. Continue doxycycline. We will follow up on the final blood culture results. Continue GI prophylaxis. Continue IV steroids. Continue oxygen support. Repeat blood cultures and if negative we will place a PICC line. This case was reviewed and discussed with my supervising physician Dr. Lind and the above assessment and plan was formulated and agreed upon. ATTESTATION BY PHYSICIAN I have seen and examined the patient. I reviewed the documentation, medical decision making, and treatment plan as noted by the mid-level provider above. I agree with the findings and plan of care. DIAN LIND MD, MIRTA L [facility] Jul 13, 2025 22:43
[2025-07-14] VITALS (13 sets, daily range): BP systolic 93–128; BP diastolic 45–71; PULSE 64–91; RESP 17–28; TEMP 97.7–98; O2SAT 93–99
[2025-07-14 03:43] LABS: ABG BASE EXCESS 5.2 mmol/L (-2.0-3.0); ABG HCO3 32.2 mmol/L (21.0-28.0); ABG OXYGEN SATURATION 98.0 % (94.0-98.0); ABG PCO2 62 mmHg (32-45); ABG PH 7.330 (7.350-7.450); CARBON MONOXIDE 1.0 % (0.5-1.5); PO2, ARTERIAL BG 114.6 mmHg (83.0-108.0); TEMPERATURE, CELSIUS BG 37.0 CELSIUS (35.5-37.0); VENT MODE, BG NC (ROOM AIR)
[2025-07-14 05:19] LABS: IMMATURE GRANULOCYTE ABSOLUTE 0.28 K/uL (0-1); NUCLEATED RED BLOOD CELLS 0.1 % (0.0-0.19); PLATELET COUNT (AUTO) 179 K/uL (130-400); RED BLOOD CELL COUNT(AUTO) 2.39 MIL/uL (4.00-5.50); RED CELL DISTRIBUTION WIDTH 18.4 % (11.0-15.5); WHITE BLOOD COUNT (AUTO) 21.5 K/uL (4.8-10.8)
--- NOTE | 2025-07-14 05:38 | HMCIMG ---
[facility] x-ray Chest:EXAM: CR Chest, 1 views. CLINICAL HISTORY: Cough. COMPARISON: None provided. FINDINGS: Cardiomegaly is noted. Radio-opaque sternal sutures are seen. Radio-opaque pacemaker is noted. Consolidation is seen in right middle zone. Bilateral basal infiltrates are noted. Bilateral perihilar congestion is noted. No pleural effusion or pneumothorax. The cardiomediastinal silhouette is within normal limits. No acute osseous abnormality. IMPRESSION: Cardiomegaly is noted. Consolidation is seen in right middle zone. Bilateral basal infiltrates are noted. Bilateral perihilar congestion is noted. /[place]
[2025-07-14 05:41] LABS: INR 5.27 (0.85-1.15)
[2025-07-14 05:56] LABS: ASPARTATE AMINOTRANSFERASE 20.0 U/L (10-37); CREATININE 1.5 mg/dL (0.5-1.0); GLOMERULAR FILTR. RATE CALC 34.0 mL/min (>90); GLUCOSE,RANDOM 134.0 mg/dL (70-105); SODIUM SERUM 139.0 mmol/L (136-145); TOTAL PROTEIN, SERUM 6.7 g/dL (6.0-8.3); UREA NITROGEN, BLOOD 35.0 mg/dL (7-18)
--- NOTE | 2025-07-14 06:53 | PN ---
[facility] Cardiology Progress Note CARDIOLOGY PROGRESS NOTE 2024 Problems: 1. Acute respiratory failure with BNP of 223, probably normal for age 2. Right upper lobe pneumonia 3. Sepsis 4. Mitral regurgitation status post [place] mechanical mitral valve replacement July 2011 with normal coronary arteries at that time with LV ejection fraction of 55-60% and grade diastolic left ventricular dysfunction by echo this admission 5. Persistent atrial fibrillation 6. Chronic anticoagulation with warfarin 7. AV node ablation 2008 8. 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 Acute on chronic kidney disease stage IIIB The patient has been transferred out to telemetry. Pressure is running 110-120 systolic heart rate 60s. Patient is [place]febrile[place] [address] on Solu-Medrol, [place] [address]. Potassium four one BUN 35 creatinine one five up slightly. The patient continues on albuterol allopurinol atorvastatin carvedilol antibiotics furosemide 40 mg p.o. b.i.d. Solu-Medrol pantoprazole potassium protocol. Warfarin is on hold. INR is 5.2 we will continue to hold warfarin. Because of the antibiotics we will require very low- dose of warfarin once her INR comes down. Currently valve sounds are crisp. I would not administer vitamin K unless we have evidence of active bleeding. MOR RED MD Jul 14, 2025 06:53
--- NOTE | 2025-07-14 09:12 | PN ---
[facility] PROGRESS NOTE Date of Service: Jul 14, 2025 Time of Service: 09:04 SUBJECTIVE: [ ] This is a 84-year-old female that presents in ED with chief complaints of shortness a breath. She was brought in by EMS in route patient was placed on non-rebreather. Patient has past medical history of congestive heart failure mitral valve replacement on Coumadin, AFib, advanced pulmonary fibrosis oxygen dependent. Onset shortness a breath has been gradually and progressed over the weekend. Severity severe aggravating factors activity laying flat. Alleviating factors none. Associated symptoms productive cough, mild chills overnight. Patient reports choking with thin liquids. Patient was admitted a month ago at [facility] for similar symptoms. Patient follows stripe marker's Dr. Sachin Maynard MD. [facility] primary card grader's Dr. Stevens. Spoke with RIRI: Neva Garrison modified DNR on this admission 07/12/25 patient was seen earlier patient continues on AVPS support. Primary n francisco reports patient desat this verifying machine operator: Process Line Operator doing trails goal to titrated Titrate Fio2 to keep Spo2 > or = 90%. hearing instrument specialist consulted for nutritional support recommendations . the patient is fully awake and alert. I discussed Hospice Palliative care and LTAC with RIRI Garrison. WE will continue to monitor patient progress. critical care following: goal to Titrate Fio2 to keep Spo2 > or = 90% Weaned Bipap. 07/13/25 patient was seen earlier. Case management discussed LTAC with medical [id number] and she agreed for patient to be transitioned to LTAC. Patient needs three nights of telemetry be completed tomorrow. Patient continues on BiPAP support continues with trials. Continues broad broad- spectrum antibiotics. Patient was evaluated by speech was started on pureed diet. 07/14/25 was transitioned to PCCU overnight. Patient continues with nasal ca nnula 2 L throughout the day and overnight. Patient waiting for acceptance to LTAC. Primary nurse reports no events overnight REVIEW OF SYSTEMS A 12 point ROS obtained all relevant positive documented otherwise ROS negative PHYSICAL EXAM GENERAL APPEARANCE: The patient is awake, alert, and oriented, acute cardiopulmonary distress on Bipap support NEUROLOGICAL: Cranial nerves II-XII grossly intact. Motor is 5/5 in bilateral upper and lower extremities proximal to distal. No sensory deficits. HEENT: Face is symmetric. Pupils are equal and reactive. Extraocular movements are intact. NECK: Supple. No JVD. No thyromegaly. No submental, submandibular, pre- /postauricular, occipital or supraclavicular lymphadenopathy. CHEST: Normal chest expansion. ++Telemetry. LUNGS:++ rales, rhonchi CARDIOVASCULAR: Regular. S1 and S2 normal. No appreciable rubs, murmurs or gallops. ABDOMEN: Soft, nontender, and nondistended. There is no rebound, voluntary guarding, or rigidity. : Deferred. No Cantu. EXTREMITIES: slight-edematous lower ext. and not cyanotic. No clubbing. Good capillary refill. SKIN: No skin breakdown. Vital Signs (last 8hr) Date Time Temp Pulse Resp B/P (MAP) Pulse Ox O2 Delivery O2 Flow Rate FiO2 07/14/25 07:00 97.9 76 18 93/71 93 Nasal Cannula 2.0 07/14/25 06:42 19 N/Cannula Oximizer Hi LPM 2.0 28 07/14/25 04:00 97.9 69 18 118/67 97 Room Air LABS: Laboratory: Test 07/14/25 05:13 07/14/25 03:41 07/13/25 05:22 07/12/25 17:36 Range/Units White Blood Count 21.5 H 4.8-10.8 K/uL Red Blood Count 2.39 L 4.00-5.50 MIL/uL Hemoglobin 7.7 L 12.0-16.0 g/dL Hematocrit 26.1 L 36-48 % Mean Corpuscular Volume 109.2 H 79-99 fL Mean Corpuscular Hemoglobin 32.2 27.0-33.0 pg Mean Corpuscular Hemoglobin Concent 29.5 L 32.0-36.0 g/dL Red Cell Distribution Width 18.4 H 11.0-15.5 % Platelet Count 179 130-400 K/uL Mean Platelet Volume 10.5 7.5-10.5 fL Immature Granulocyte % (Auto) 1.3 H 0-1 % Neutrophils (%) (Auto) 95.1 H 40.0-77.0 % Lymphocytes (%) (Auto) 1.7 L 21.0-51.0 % Monocytes (%) (Auto) 1.8 L 3.0-13.0 % Eosinophils (%) (Auto) 0.0 0.0-8.0 % Basophils (%) (Auto) 0.1 0.0-5.0 % Neutrophils # (Auto) 20.4 H 1.8-7.7 K/uL Lymphocytes # (Auto) 0.4 L 1.0-4.8 K/uL Monocytes # (Auto) 0.4 0.1-1.0 K/uL Eosinophils # (Auto) 0.00 0.00-0.70 K/uL Basophils # (Auto) 0.03 0.00-0.20 K/uL Absolute Immature Granulocyte (auto 0.28 0-1 K/uL Nucleated Red Blood Cells 0.1 0.0-0.19 % Prothrombin Time 47.4 #*H 9.6-11.6 SEC Prothromb Time International Ratio 5.27 *H 0.85-1.15 Sodium Level 139 136-145 mmol/L Potassium Level 4.1 3.5-5.1 mmol/L Chloride Level 101 101-111 mmol/L Carbon Dioxide Level 36 H 21-32 mmol/L Blood Urea Nitrogen 35 H 7-18 mg/dL Creatinine 1.5 H 0.5-1.0 mg/dL Glomerular Filtration Rate Calc 34 >90 mL/min Random Glucose 134 H 70-105 mg/dL Total Calcium 8.2 L 8.5-10.1 mg/dL Magnesium Level 2.10 1.80-2.40 mg/dL Total Bilirubin 0.5 # 0.2-1.0 mg/dL Aspartate Amino Transf (AST/SGOT) 20 10-37 U/L Alanine Aminotransferase (ALT/SGPT) 16 12-78 U/L Alkaline Phosphatase 59 50-136 U/L Total Protein 6.7 6.0-8.3 g/dL Albumin 2.7 L 3.5-5.0 g/dL Blood Gas Specimen Type Arterial Arterial Blood pH 7.330 L 7.350-7.450 Arterial Blood Partial Pressure CO2 62 *H 32-45 mmHg Arterial Blood Partial Pressure O2 114.6 H 83.0-108.0 mmHg Arterial Blood HCO3 32.2 H 21.0-28.0 mmol/L Arterial Blood Oxygen Saturation 98.0 94.0-98.0 % Arterial Blood Base Excess 5.2 H -2.0-3.0 mmol/L Hemoglobin (Blood Gas) 8.7 L 12.0-16.0 g/dL Sodium (Blood Gas) 141 136-145 MMOL/L Bedside Potassium (Blood Gas) 4.2 3.4-4.5 MMOL/L Bedside Chloride (Blood Gas) 99 98-107 MMOL/L Bedside Glucose (Blood Gas) 134 H 65-95 MG/DL Bedside Ionized Calcium (Blood Gas) 1.11 L 1.15-1.33 MMOL/L Bedside Lactic Acid (Blood Gas) 1.33 H 0.36-0.75 MMOL/L Blood Gas Temperature 37.0 35.5-37.0 CELSIUS Blood Gas Flow-by 4.00 0.00-15.00 L/min Blood Gas Vent Mode NC ROOM AIR FiO2 36.0 % Blood Gas Specimen Comment WILBER RN ,RR B-Type Natriuretic Peptide 223 H 0-100 pg/mL Group A Streptococcus Rapid negative NEGATIVE Test 07/12/25 16:41 Range/Units Blood Gas Respiration Rate 26.0 min. Blood Gas Tidal Volume 450 ml Blood Gas PEEP 6 cm H2O Current Medications Medications (Trade) Dose Ordered Sig/Macey Route PRN Reason Start Time Stop Time Status Last Admin Dose Admin Acetaminophen (TYLenol 325MG TAB) 650 mg Q4H PRN PO TEMPERATURE GREATER THAN 101.5 07/11/25 11:00 08/10/25 10:59 07/11/25 20:03 650 MG Acetaminophen (TYLenol 325MG TAB) 650 mg Q6H PRN PO MILD PAIN (1-3) 07/11/25 15:30 08/10/25 15:29 07/11/25 15:31 650 MG Albuterol (DUOneb) 1 UDVIAL Q6H PRN IH SHORTNESS OF BREATH 07/11/25 11:00 08/10/25 10:59 07/12/25 11:13 1 UDVIAL Albuterol (DUOneb) 1 udvial [id number] IH 07/12/25 18:00 08/11/25 17:59 07/14/25 06:42 1 UDVIAL Allopurinol (ZYLOprim 100MG) 50 mg Q48H PO 07/12/25 09:00 08/11/25 08:59 Atorvastatin Calcium (LIPItor 10MG) 10 mg HS PO 07/11/25 21:00 08/10/25 20:59 07/13/25 20:33 10 MG Carvedilol (Coreg 3.125MG) 3.125 mg BID PO 07/11/25 21:00 08/10/25 20:59 Cefepime HCl (MAXipime 2 gm vial) 2 gm Q24H IVPB 07/11/25 11:00 07/12/25 12:08 DC 07/11/25 13:07 2 GM Dexmedetomidine/ Sodium Chloride (PRECEdex 200MCG/ 50ML-NS) 200 mcg PROTOCOL IV 07/13/25 05:00 07/13/25 04:45 DC Dexmedetomidine/ Sodium Chloride (PRECEdex 400MCG/ 100ML-NS) 400 mcg PROTOCOL IV 07/13/25 05:00 08/12/25 04:59 07/13/25 04:55 400 MCG Docusate Sodium (COLace 100MG CAP) 100 mg BID PRN PO CONSTIPATION 07/11/25 12:00 08/10/25 11:59 Doxycycline Hyclate (Doxycycline Hyclate) 100 mg BID PO 07/11/25 21:00 07/21/25 20:59 07/13/25 20:33 100 MG Ferrous Sulfate (Ferrous Sulfate) 325 mg DAILY PO 07/12/25 09:00 08/11/25 08:59 07/13/25 08:52 325 MG Folic Acid (FOLic ACID 1 MG TABLET) 1 mg DAILY PO 07/12/25 09:00 07/12/25 09:40 DC Furosemide (LASix 40MG TAB) 40 mg BID@09,17 PO 07/12/25 09:00 08/11/25 08:59 07/13/25 16:14 40 MG Furosemide (LASix 40MG VIAL) 40 mg Q12H IV 07/11/25 21:00 07/12/25 07:56 DC 07/11/25 20:03 40 MG Lactulose (Constulose 20gm/ 30ml Udcup) 20 gm BID PRN PO CONSTIPATION 07/11/25 11:00 08/10/25 10:59 Lidocaine (Lidocaine Patch 4%) 1 each Q24H TP 07/11/25 16:00 08/10/25 15:59 07/13/25 16:14 1 EACH Losartan Potassium (CozAAR 25MG TAB) 25 mg DAILY PO 07/12/25 09:00 07/12/25 11:47 DC Magnesium Sulfate 50 ml @ 0 mls/hr PROTOCOL PRN IV low mag level 07/11/25 11:30 08/10/25 11:29 Melatonin (Melatonin) 5 mg HSPRN PO 07/13/25 20:30 08/12/25 20:29 Methylprednisolone Sodium Succinate (Solu-medROL 40MG) 40 mg Q12H IVP 07/13/25 19:30 08/11/25 15:29 07/14/25 07:41 40 MG Methylprednisolone Sodium Succinate (Solu-medROL 40MG) 40 mg Q8H IVP 07/12/25 15:30 07/13/25 09:37 DC 07/13/25 06:37 40 MG Metronidazole/ Sodium Chloride 100 ml @ 100 mls/hr Q8H IVPB 07/12/25 10:00 07/12/25 15:27 DC 07/12/25 10:02 100 MLS/HR Pantoprazole Sodium (PROTonix 40MG INJ) 40 mg BID IVP 07/11/25 21:00 08/10/25 20:59 07/13/25 20:33 40 MG Piperacillin Sod/ Tazobactam Sod (Zosyn 3.375gm+NS 50ml) 3.375 gm Q8H IV 07/12/25 12:30 07/22/25 12:29 07/14/25 04:43 3.375 GM Potassium Chloride 100 ml @ 100 mls/hr AD PRN IV POTASSIUM PROTOCOL 07/11/25 11:30 08/10/25 11:29 Potassium Chloride (K-Dur/Klor-Con 20meq) 20 meq AD PRN PO POTASSIUM PROTOCOL 07/11/25 11:30 08/10/25 11:29 Potassium Chloride (KCl 10% Elixir 20meq/15ml) 20 meq AD PRN PO POTASSIUM PROTOCOL 07/11/25 11:30 08/10/25 11:29 Thiamine HCl (Vitamin B-1) 100 mg DAILY IVP 07/13/25 09:00 08/12/25 08:59 07/13/25 08:52 100 MG Vancomycin HCl (Vancomycin 1g/ 250ml Kit) 1 gm Q12H IV 07/11/25 11:00 07/11/25 11:02 DC Warfarin Sodium (Coumadin) 2 mg WARF PO 07/12/25 16:00 07/13/25 06:54 DC 07/12/25 15:23 2 MG Warfarin Sodium (Coumadin) 2.5 mg QSU PO 07/17/25 09:00 07/11/25 15:37 DC Warfarin Sodium (Coumadin) 2.5 mg QTUTHSA PO 07/12/25 09:00 07/11/25 15:37 DC Warfarin Sodium (Coumadin) 5 mg QMOWEFR PO 07/11/25 16:00 07/11/25 15:37 DC DIAGNOSTICS / RADIOLOGY: [ ] ASSESSMENT: Acute respiratory failure with hypoxia POA requiring oxygen supplemental BiPAP support Suspecting aspiration pneumonia POA History advanced pulmonary fibrosis POA Home oxygen dependent POA acute CHF on Chronic CHF with Mitral value replacement Hypercoagulable state on Coumadin secondary to MVR persistent A fibb on Warfarin pOA Sepsis( temperature 103.6 heart rate 115 respirations 26) POA gram negative bacteremia POA BINU on chronic renal failure POA Acute anemia on chronic anemia POA debility with physical deconditioning Elevated Coumadin ( toxicity) not POA Leukocytosis most likely secondary to IV steroids POA PLAN: [ ] This is a 84-year-old woman with events pulmonary fibrosis was admitted for sepsis and acute respiratory failure with hypoxia patient continues IV steroids bronchodilators oxygen supplemental. Patient has a history aortic valve replacement currently heparin is placed on hold card grader's is following no vitamin K was given per card grader's given to no evidence active bleeding. Patient will be transitioned to LTAC, casa management arranging. Admit: ICU transition to PCCU condition: Guarded Status: MODIFIED DNR IVF: heplock Diet: Regular diet speech no signs of aspiration. Consultants critical team, card grader and weed sprayer Antibiotics: Zosyn 3.375 gm IV q8 hrs,. Doxycycline 100 mg IV b.i.d. continue to monitor WBC's trends, afebrile Microbiology: blood cultures growing gram negative robyn: repeat cultures so far negative in reference Resp failure with RUL pneumonia: Duo nebs as needed; IV steroids titrating. oxygen supplemental to keep O2 saturations above 92% Aspiration precautions head of the bed at 45 at all times, Labs cbc, cmp, mag+ in a.m. Replace electrolytes as needed as per protocol to keep potassium above 4.0 magnesium 2.0. avoid NSAIDS and renal dose medication fluid restriction1.5 liter daily strict I/O on Lasix IV bid [address] Stevens: goal to INR between 2-1/2 to 3-1/2. daily INR Coumadin is currently placed on hold INR 5.2 as per card grader's no vitamin K at this time. will monitor H/H trends transfuse to keep HGB above 7. Pipeline Executive following continue with carvedilol 3.125 mg p.o. b.i.d. for rate control continue Folic acid 1 mg po daily and ferrous sulfate 325 mg po daily Supportive measures: DVT ppx, GI ppx case management LTAC waiting for approval all questions answered Supervising MD: Dr. Osorio c/d This document was generated in part using voice recognition software, occasional wrong word or sound alike substitutions may have occurred due to the inherent limitations of voice recognition software. Read the chart carefully and recognize using context, where the substitutions have occurred. Although every effort was made to edit the content, hydraulic modeling engineer and typing errors may occur ATTESTATION BY PHYSICIAN I have seen and examined the patient. I reviewed the documentation, medical decision making, and treatment plan as noted by the mid-level provider above. I agree with the findings and plan of care. DAYANNA OSORIO MD, ELIZABETH NP Jul 14, 2025 09:12
--- NOTE | 2025-07-14 10:11 | HMCIMG ---
EXAM: CR Chest, 1 View. CLINICAL HISTORY: PNEUMONIA COMPARISON: Yesterday. FINDINGS: LUNGS: Patchy airspace disease throughout the right lung most prominent in the upper lobe likely compatible with multifocal pneumonia. PLEURAL SPACES: Small bilateral pleural effusion. MEDIASTINUM: Status post median sternotomy. BONES: No aggressive appearing osseous lesion seen. MISCELLANEOUS: Left-sided pacemaker. IMPRESSION: 1. Multifocal pneumonia in the right lung, most prominent in the upper lobe. 2. Small bilateral pleural effusions. 3. Status post median sternotomy. 4. Left-sided pacemaker. /[place]
--- NOTE | 2025-07-14 10:15 | PN ---
[facility] PROGRESS NOTE Date Patient Seen: Jul 14, 2025 Time of Visit: 10:09 Supervising Physician: Ned León Primary Care Physician: JOVANNA ARMENTA Outpatient Specialists: Inpatient Consults: DR LELO HYMAN ATTENDING PHYSICIAN: YUMIKO PROBLEM LIST: Acute hypoxemic respiratory failure on IMPROVING History of congestive heart failure with MECHANICAL mitral valve replacement Atrial fibrillation supra-therapeutic INR Advanced pulmonary fibrosis, oxygen dependent Right upper lobe pneumoniae, POA suspected aspiration Acute on chronic anemia BINU on chronic kidney disease Pulmonary Fibrosis Sepsis (tachypnea, leukocytosis, fever on presentation) PLAN SUMMARY: Supplemental oxygen as needed Wean off as tolerated Duo nebs as needed BiPAP nightly and p.r.n. Continue atorvastatin Continue carvedilol Continue doxycycline Continue Zosyn Continue Solu-Medrol Daily INRs ST for MBSS PT as tolerated INTERVAL HISTORY: 07/13 Chart reviewed including all laboratory and imaging results. White count continues trending down 21.2 today H&H is 7.9/25.9 seems stable platelet count of 189 K. Neutrophils 94.8. Creatinine of 1.3 GFR of 40 similar to yesterday BNP of 223 decreased from 1150. Latest ABG shows a pH of 7.29, PO2 of 112 bicarb of 32.9. Denies chest pain, palpitation, or shortness for breath. Currently on 4 L via Oxymizer in no apparent respiratory distress respiratory rate of 21 saturating 99% on 4 L. we will continue AVAPS PRN and HS. Hemodynamically stable. Patient had episode of confusion overnight as per RN. Decrease Solu-Medrol to 40 mg b.i.d. start physical therapy. Start clear liquid diet as tolerated. Downgrade to PCCU floor to avoid delirium. 07/14 - patient is seen sitting up in bed appears to be weak, deconditioned hypoxemic currently on2 L via nasal cannula. Patient does admit she continues improving daily. Patient's warfarin remains on hold and today's labs show an INR of 5.27. Patient continues on broad-spectrum antibiotics for pneumonia. Patient does continue with leukocytosis and most recent procalcitonin of 4.20. Recommend continue current antibiotic treatment plan. Patient was evaluated by Cardiology and recommended continue current cardioprotective medications along with diuretics. No plans for vitamin K less active bleeding is noted. Continue to monitor INRs daily. Patient has been referred to LTAC and currently pending acceptance. We will continue to follow up with you. REVIEW OF SYSTEMS: 12 point ROS reviewed with patient. Pertinent positives mentioned above. Otherwise negative. PHYSICAL EXAM: GENERAL: alert, weak, awake oriented x 3 HEENT: EOMI, Sclera non icteric, moist mucosa NECK: Supple, no JVD, trachea midline LUNGS: Diminished breath sounds bilaterally. No wheezes HEART: Regular rate and rhythm. Normal S1 and S2, without murmurs ABD: Abdomen soft, nontender. Bowel sounds present EXT: No clubbing cyanosis or edema NEURO: Alert and oriented to person, follows commands Vital Signs (last 8hr) Date Time Temp Pulse Resp B/P (MAP) Pulse Ox O2 Delivery O2 Flow Rate FiO2 07/14/25 07:00 97.9 76 18 93/71 93 Nasal Cannula 2.0 07/14/25 06:42 19 N/Cannula Oximizer Hi LPM 2.0 28 07/14/25 04:00 97.9 69 18 118/67 97 Room Air LABS: Hematology Labs: Test 07/14/25 05:13 Range/Units White Blood Count 21.5 H 4.8-10.8 K/uL Red Blood Count 2.39 L 4.00-5.50 MIL/uL Hemoglobin 7.7 L 12.0-16.0 g/dL Hematocrit 26.1 L 36-48 % Mean Corpuscular Volume 109.2 H 79-99 fL Mean Corpuscular Hemoglobin 32.2 27.0-33.0 pg Mean Corpuscular Hemoglobin Concent 29.5 L 32.0-36.0 g/dL Red Cell Distribution Width 18.4 H 11.0-15.5 % Platelet Count 179 130-400 K/uL Mean Platelet Volume 10.5 7.5-10.5 fL Immature Granulocyte % (Auto) 1.3 H 0-1 % Neutrophils (%) (Auto) 95.1 H 40.0-77.0 % Lymphocytes (%) (Auto) 1.7 L 21.0-51.0 % Monocytes (%) (Auto) 1.8 L 3.0-13.0 % Eosinophils (%) (Auto) 0.0 0.0-8.0 % Basophils (%) (Auto) 0.1 0.0-5.0 % Neutrophils # (Auto) 20.4 H 1.8-7.7 K/uL Lymphocytes # (Auto) 0.4 L 1.0-4.8 K/uL Monocytes # (Auto) 0.4 0.1-1.0 K/uL Eosinophils # (Auto) 0.00 0.00-0.70 K/uL Basophils # (Auto) 0.03 0.00-0.20 K/uL Absolute Immature Granulocyte (auto 0.28 0-1 K/uL Nucleated Red Blood Cells 0.1 0.0-0.19 % Chemistry Labs: Test 07/14/25 05:13 07/13/25 05:22 Range/Units Sodium Level 139 136-145 mmol/L Potassium Level 4.1 3.5-5.1 mmol/L Chloride Level 101 101-111 mmol/L Carbon Dioxide Level 36 H 21-32 mmol/L Blood Urea Nitrogen 35 H 7-18 mg/dL Creatinine 1.5 H 0.5-1.0 mg/dL Glomerular Filtration Rate Calc 34 >90 mL/min Random Glucose 134 H 70-105 mg/dL Total Calcium 8.2 L 8.5-10.1 mg/dL Magnesium Level 2.10 1.80-2.40 mg/dL Total Bilirubin 0.5 # 0.2-1.0 mg/dL Aspartate Amino Transf (AST/SGOT) 20 10-37 U/L Alanine Aminotransferase (ALT/SGPT) 16 12-78 U/L Alkaline Phosphatase 59 50-136 U/L Total Protein 6.7 6.0-8.3 g/dL Albumin 2.7 L 3.5-5.0 g/dL B-Type Natriuretic Peptide 223 H 0-100 pg/mL Coagulation Labs: Test 07/14/25 05:13 Range/Units Prothrombin Time 47.4 #*H 9.6-11.6 SEC Prothromb Time International Ratio 5.27 *H 0.85-1.15 DIAGNOSTICS / RADIOLOGY RESULTS: PATIENT: PK BATEMAN MR#: [id number] : 1940 SEX: F AGE: 84 LOCATION: [facility] ORDER 1512 STATUS: ADM IN REPORT#: [id number] SERVICE 1200 REASON: pulmonary fibrosis ORDERING PHYSICIAN: BRYNN BALDWIN MD PROCEDURE: CHEST WO - CT CHEST W/O CONTRAST EXAM: CT Chest Without Intravenous Contrast. CLINICAL HISTORY: 84-year-old female with pulmonary fibrosis. TECHNIQUE: Axial computed tomography images of the chest without intravenous contrast. Dose reduction technique was used including one or more of the following: automated exposure control, adjustment of mA and kV according to patient size, and/or iterative reconstruction. CONTRAST: Without. COMPARISON: Prior XR 07/13/2025 04:22 am. FINDINGS: LUNGS: Pulmonary fibrosis. Patchy consolidation in the right lower lobe and right middle lobe suggesting pneumonia. No pulmonary mass. PLEURAL SPACES: Small right pleural effusion. Small left effusion. No pneumothorax. HEART AND MEDIASTINUM: No cardiomegaly. No significant pericardial effusion. Atherosclerotic aorta iliac bifurcation. LYMPH NODES: No lymphadenopathy. CHEST WALL AND UPPER ABDOMEN: Multiple gallstones seen. Atrophic right kidney. Sternotomy wires seen. The chest wall is unremarkable. BONES: Moderate degenerative changes in the lumbar spine with a compression deformity of T12 loss of height and 40 to 50%. Findings better appreciated from prior XR 07/13/2025 04:22 am. IMPRESSION: 1. Patchy consolidation in the right lower lobe and right middle lobe, suggesting pneumonia. 2. Pulmonary fibrosis. 3. Small right pleural effusion and small left effusion. 4. Findings better appreciated from prior XR 07/13/25 04:22 am. /[place] DICTATED BY: TIEN NEVILLE MD DATE: 07/13/252030 ELECTRONICALLY SIGNED BY: TIEN NEVILLE MD DATE: 07/13/252030 PLAN NEURO: Minimize central acting medications as possible. Maintain fall precautions, adequate lighting during the day PULMONARY: Supplemental 02 as needed. Maintain aspiration precautions at all times CARDIOVASCULAR: Follow hemodynamics. Vital signs per facility protocol GI & NUTRITION: Continue with nutritional support. Continue stool softeners and laxatives as needed. KIDNEYS & ELECTROLYTES: Strict monitoring of intake, output and overall fluid balance. Avoid nephrotoxic medications to the extent possible. Medications to be dosed according to renal function. Monitor electrolytes and replace as needed ENDOCRINE: Maintain blood glucose between 100-180 at all times. Hypoglycemia protocol in place INFECTIOUS DISEASE: Trend temperature, WBC and procalcitonin level Follow cultures, deescalate antibiotics as soon as possible. Panculture if new onset fever ONCOLOGY/HEMATOLOGY/COAGULATION: Monitor for s/s of bleeding Monitor hemoglobin, coagulation studies as needed SKIN: Pressure ulcer prevention per facility protocol Specialty mattress ORTHO/REHAB: Continue PT/OT Prophylaxis: Continue GI and DVT prophylaxis Code Status: Full Resuscitation Disposition: As per attending Other: Total patient care time exceeds 35 minutes excluding all procedures. ATTESTATION BY PHYSICIAN The patient has been seen and evaluated, the case has been discussed with the PLANTING MATERIAL UNLOADER, I agree with the clinical findings and plan of care. Jj Stephenson MD, ECTOR N PLANTING MATERIAL UNLOADER Jul 14, 2025 10:15
--- NOTE | 2025-07-14 13:00 | PN ---
The patient is an 84-year-old female with a history of mitral valve replacement, chronic congestive heart failure, atrial fibrillation, and advanced pulmonary fibrosis requiring supplemental oxygen at baseline. She presented to the emergency department with progressive shortness of breath and cough. She was hypoxemic on arrival, requiring escalation to BiPAP support. Initial evaluation demonstrated leukocytosis, anemia, BINU, and electrolyte derangements. Chest imaging suggested bilateral pneumonia. Patient improved significantly. Patient off BiPAP. Patient on nasal cannula. Patient receiving antibiotic treatment for her pneumonia and bacteremia. There is a plan to transfer her to medical floor. There is a plan to send this patient to [facility]. PHYSICAL EXAM VITALS: Vital Signs Date Time Temp Pulse Resp B/P (MAP) Pulse Ox O2 Delivery O2 Flow Rate FiO2 07/11/25 20:17 91/44 07/11/25 20:03 99.9 07/11/25 18:57 88 34 07/11/25 18:44 50 07/11/25 18:10 94 BIPAP 07/11/25 09:13 15 GENERAL: ALERT, ORIENTED EYES: PUPILS EQUAL/REACTIVE, EXTRAOCULAR MUSCLES INTCT RESPIRATORY: LUNGS CLEAR-AUSC/PERCUS CARDIOVASCULAR: REGULAR RATE, REGULAR RHYTHM NEUROLOGICAL: GROSSLY INTACT Assessment 1. Anemia. Hemoglobin level continue to be 8.4 g/deciliter 2. Leukocytosis 3. 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 Osteoporosis 5. Respiratory failure with the patient on BiPAP. Patient is a DO NOT INTUBATE. Plan 1. Low hemoglobin is stable. There is no need for blood product transfusion. There is no need for blood product transfusion 2. Patient DO NOT INTUBATE. 3. Respiratory function improved significantly with the patient on nasal cannula of oxygen 4. Continue antibiotic treatment. The patient was pneumonia and bacteremia. It seems the patient doing very well at this time 5. I have long discussion with the patient and family member regarding the plan of care. I answer all question and concern and I spent more than 35 minutes. There was 2 family member in the room. I explained to them that she is stable from hematology point of view. The patient will need antibiotic treatment at least maybe 4 to 2 weeks. Patient to be treated as per infectious disease specialist Vitals/Labs Vital Signs Date Time Temp Pulse Resp B/P (MAP) Pulse Ox O2 Delivery O2 Flow Rate FiO2 07/14/25 11:33 90 20 N/Cannula Low lpm 2.0 07/14/25 11:00 97.9 122/63 94 07/14/25 06:42 28 Laboratory Tests 07/14/25 05:13 Medications Current Medications Albuterol 1 udvial ONCE ONCE IH Last administered on 07/11/25at 09:43; Start 07/11/25 at 09:00; Stop 07/11/25 at 09:01; Status DC Furosemide 40 mg ONCE ONCE IVP Last administered on 07/11/25at 09:41; Start 07/11/25 at 09:00; Stop 07/11/25 at 09:01; Status DC Piperacillin Sod/ Tazobactam Sod 3.375 gm ONCE ONCE IV Last administered on 07/11/25at 10:51; Start 07/11/25 at 10:00; Stop 07/11/25 at 10:01; Status DC Azithromycin 250 ml @ 250 mls/hr ONCE ONCE IVPB Last administered on 07/11/25at 10:56; Start 07/11/25 at 10:00; Stop 07/11/25 at 10:59; Status DC Lactated Ringer's 500 ml @ 0 mls/hr ONCE ONCE IV Last administered on 07/11/25at 10:51; Start 07/11/25 at 10:00; Stop 07/11/25 at 10:01; Status DC Acetaminophen 1,000 mg ONCE ONCE PO Last administered on 07/11/25at 10:56; Start 07/11/25 at 11:00; Stop 07/11/25 at 11:01; Status DC Lactulose 20 gm BID PRN PO; Start 07/11/25 at 11:00; Stop 08/10/25 at 10:59 Pantoprazole Sodium 40 mg BID IVP Last administered on 07/14/25at 10:09; Start 07/11/25 at 21:00; Stop 08/10/25 at 20:59 Acetaminophen 650 mg Q4H PRN PO Last administered on 07/11/25at 20:03; Start 07/11/25 at 11:00; Stop 08/10/25 at 10:59 Albuterol 1 UDVIAL Q6H PRN IH Last administered on 07/12/25at 11:13; Start 07/11/25 at 11:00; Stop 08/10/25 at 10:59 Cefepime HCl 2 gm Q24H IVPB Last administered on 07/11/25at 13:07; Start 07/11/25 at 11:00; Stop 07/12/25 at 12:08; Status DC Vancomycin HCl 1 gm Q12H IV; Start 07/11/25 at 11:00; Stop 07/11/25 at 11:02; Status DC Potassium Chloride 100 ml @ 100 mls/hr AD PRN IV; Start 07/11/25 at 11:30; Stop 08/10/25 at 11:29 Potassium Chloride 20 meq AD PRN PO; Start 07/11/25 at 11:30; Stop 08/10/25 at 11:29 Potassium Chloride 20 meq AD PRN PO; Start 07/11/25 at 11:30; Stop 08/10/25 at 11:29 Magnesium Sulfate 50 ml @ 0 mls/hr PROTOCOL PRN IV; Start 07/11/25 at 11:30; Stop 08/10/25 at 11:29 Furosemide 40 mg Q12H IV Last administered on 07/11/25at 20:03; Start 07/11/25 at 21:00; Stop 07/12/25 at 07:56; Status DC Warfarin Sodium 5 mg QMOWEFR PO; Start 07/11/25 at 16:00; Stop 07/11/25 at 15:37; Status DC Warfarin Sodium 2.5 mg QTUTHSA PO; Start 07/12/25 at 09:00; Stop 07/11/25 at 15:37; Status DC Carvedilol 3.125 mg BID PO Last administered on 07/14/25at 10:10; Start 07/11/25 at 21:00; Stop 08/10/25 at 20:59 Losartan Potassium 25 mg DAILY PO; Start 07/12/25 at 09:00; Stop 07/12/25 at 11:47; Status DC Atorvastatin Calcium 10 mg HS PO Last administered on 07/13/25at 20:33; Start 07/11/25 at 21:00; Stop 08/10/25 at 20:59 Docusate Sodium 100 mg BID PRN PO; Start 07/11/25 at 12:00; Stop 08/10/25 at 11:59 Folic Acid 1 mg DAILY PO; Start 07/12/25 at 09:00; Stop 07/12/25 at 09:40; Status DC Ferrous Sulfate 325 mg DAILY PO Last administered on 07/14/25at 10:10; Start 07/12/25 at 09:00; Stop 08/11/25 at 08:59 Warfarin Sodium 2.5 mg QSU PO; Start 07/17/25 at 09:00; Stop 07/11/25 at 15:37; Status DC Doxycycline Hyclate 100 mg BID PO Last administered on 07/14/25at 10:10; Start 07/11/25 at 21:00; Stop 07/21/25 at 20:59 Sodium Chloride 4 ml STK-MED ONCE IH Last administered on 07/11/25at 13:58; Start 07/11/25 at 13:39; Stop 07/11/25 at 13:39; Status DC Acetaminophen 650 mg Q6H PRN PO Last administered on 07/11/25at 15:31; Start 07/11/25 at 15:30; Stop 08/10/25 at 15:29 Lidocaine 1 each Q24H TP Last administered on 07/13/25at 16:14; Start 07/11/25 at 16:00; Stop 08/10/25 at 15:59 Allopurinol 50 mg Q48H PO Last administered on 07/14/25at 10:10; Start 07/12/25 at 09:00; Stop 08/11/25 at 08:59 Sodium Chloride 4 ml STK-MED ONCE IH Last administered on 07/11/25at 18:40; Start 07/11/25 at 18:31; Stop 07/11/25 at 18:32; Status DC Sodium Chloride 4 ml STK-MED ONCE IH Last administered on 07/11/25at 23:22; Start 07/11/25 at 23:13; Stop 07/11/25 at 23:13; Status DC Warfarin Sodium 2 mg WARF PO Last administered on 07/12/25at 15:23; Start 07/12/25 at 16:00; Stop 07/13/25 at 06:54; Status DC Furosemide 40 mg BID@09,17 PO Last administered on 07/14/25at 10:10; Start 07/12/25 at 09:00; Stop 08/11/25 at 08:59 Metronidazole/ Sodium Chloride 100 ml @ 100 mls/hr Q8H IVPB Last administered on 07/12/25at 10:02; Start 07/12/25 at 10:00; Stop 07/12/25 at 15:27; Status DC Thiamine HCl 100 mg DAILY IVP Last administered on 07/14/25at 10:09; Start 07/13/25 at 09:00; Stop 08/12/25 at 08:59 Piperacillin Sod/ Tazobactam Sod 3.375 gm Q8H IV Last administered on 07/14/25at 04:43; Start 07/12/25 at 12:30; Stop 07/22/25 at 12:29 Methylprednisolone Sodium Succinate 40 mg Q8H IVP Last administered on 07/13/25at 06:37; Start 07/12/25 at 15:30; Stop 07/13/25 at 09:37; Status DC Albuterol 1 udvial [id number] IH Last administered on 07/14/25at 11:30; Start 07/12/25 at 18:00; Stop 08/11/25 at 17:59 Morphine Sulfate 1 mg ONCE ONCE IVP Last administered on 07/13/25at 02:52; Start 07/13/25 at 03:00; Stop 07/13/25 at 03:01; Status DC Dexmedetomidine/ Sodium Chloride 200 mcg PROTOCOL IV; Start 07/13/25 at 05:00; Stop 07/13/25 at 04:45; Status DC Dexmedetomidine/ Sodium Chloride 400 mcg PROTOCOL IV Last administered on 07/13/25at 04:55; Start 07/13/25 at 05:00; Stop 08/12/25 at 04:59 Methylprednisolone Sodium Succinate 40 mg Q12H IVP Last administered on 07/14/25at 07:41; Start 07/13/25 at 19:30; Stop 08/11/25 at 15:29 Melatonin 5 mg HSPRN PO; Start 07/13/25 at 20:30; Stop 08/12/25 at 20:29 Melatonin 5 mg STK-MED ONCE PO Last administered on 07/13/25at 20:33; Start 07/13/25 at 20:16; Stop 07/13/25 at 20:16; Status DC LYDIA PAUL MD Jul 14, 2025 13:00
[2025-07-14 13:13] LABS: FREE KAPPA LIGHT CHAINS,S 60.3 mg/L (3.3-19.4)
--- NOTE | 2025-07-14 13:15 | NUR ---
MBSS COMPLETED. No aspiration/ no penetrations. RECOMMEND: regular solids, thin liquids and pills whole with liquids as tolerated. COMPENSATORY STRATEGIES: 1. sit upright during oral intake 2. extra dry swallows DIAGNOSTIC FINDINGS: Oropharyngeal swallowing is within functional limits. No penetrations or aspiration observed. Pt with mild pharyngeal residue cleared with re-swallows. Otherwise, exam was negative for etiology of patients c/o coughing and throat clearing with oral intake. COMMUNITY SERVICE TECHNICIAN reviewed results and recommendations with patient and nurse Porfirio Crooks. COMMUNITY SERVICE TECHNICIAN educated patient on risks and consequences of aspiration. Speech therapy not warranted at this time. All questions answered. Addendum: 07/14/[address] [facility] ROSA Amended: Links added.
--- NOTE | 2025-07-14 14:13 | HMCIMG ---
MODIFIED BARIUM SWALLOW W CINE REASON: dysphagia FINDINGS: Fluoroscopic assistance was provided to the speech pathologist while performing examination. For findings and dietary recommendations, refer to speech pathologist's report. FLUORO TIME: 4.1 minutes IMPRESSION: Modified barium swallow as described.
[2025-07-14 15:15] LABS: ALBUMIN (IFE & ELECTROPHOR) 3.0 g/dL (2.9-4.4); ALBUMIN/GLOBULIN RATIO (IFE) 1.1 (0.7-1.7); ALPHA-1 (IFE & PEP) 0.3 g/dL (0.0-0.4); ALPHA-2 (IFE & PEP) 0.5 g/dL (0.4-1.0); BETA (IFE & ELP) 1.0 g/dL (0.7-1.3); GAMMA GLOBULINS (IFE & ELP) 1.2 g/dL (0.4-1.8); GLOBULIN TOTAL (IFE) 3.0 g/dL (2.2-3.9); IGA (IFE) 245 mg/dL (64-422); IGG (IMMUNOFIXATION) 1387 mg/dL (586-1602); IGM (IMMUNOFIXATION) 147 mg/dL (26-217); IMMUNOFIXATION RESULT Note: (.); M-SPIKE (IEP) Not Observed g/dL (Not Observed)
[2025-07-14] MEDS ORDERED: PHARMACY COMMUNICATION MISC SCH (15:30)
--- NOTE | 2025-07-14 17:34 | PN ---
INFECTIOUS DISEASE PROGRESS NOTE Date of Service: Jul 14, 2025 SUBJECTIVE: Patient has been downgraded to PCCU and was examined in room 223. Patient is awake, alert and oriented x3. WBC remains elevated at 21.5 possible due to IV steroids. No fever, temperature is 97.9. We will follow up on the blood cultures final results. Will continue on Zosyn and doxycycline. Will repeat blood cultures and if results are negative we will place a PICC line. PHYSICAL EXAM EYES: Anicteric. Pupils equal and reactive. HENT: No oral thrush seen, moist Oral mucosa. NECK: Supple, no JVD or thyromegaly. LUNGS: Diminished breath sounds. Oxygen support. CARDIOVASCULAR: S1, S2 regular. No murmur heard. ABDOMEN: Soft, non tender, bowel sounds present, no organomegaly. CENTRAL NERVOUS SYSTEM: Awake, alert, oriented x 3. SKIN: No rashes, no swelling. LYMPHATICS: No peripheral lymphadenopathy. MUSCULOSKELETAL: No joint swelling, erythema or tenderness. EXTREMITIES: No cyanosis or clubbing. BACK: No deformity, no pressure ulcer. GENITOURINARY: No dysuria or hematuria. Cantu catheter. Vital Sign (Last 12 Hours) 07/14/25 07/14/25 07/14/25 07/14/25 06:42 06:45 07:00 10:10 Temp 97.9 Pulse 88 76 Resp 19 20 18 B/P (MAP) 93/71 93/71 Pulse Ox 93 O2 Delivery N/Cannula Oximizer Hi LPM Nasal Cannula O2 Flow Rate 2.0 2.0 FiO2 28 07/14/25 07/14/25 07/14/25 07/14/25 11:00 11:33 11:33 16:00 Temp 97.9 97.7 Pulse 68 90 90 91 Resp 20 20 20 20 B/P (MAP) 122/63 128/61 Pulse Ox 94 94 O2 Delivery Room Air N/Cannula Low lpm Nasal Cannula O2 Flow Rate 2.0 2.0 Intake & Output (last 24hrs) 07/13/25 07/13/25 07/14/25 15:00 23:00 07:00 Intake Total 340.5 ml 203.0 ml Output Total 650 ml Balance 340.5 ml -447.0 ml LABS: Laboratory: Test 07/14/25 05:13 07/14/25 03:41 07/13/25 05:22 07/12/25 17:36 Range/Units White Blood Count 21.5 H 4.8-10.8 K/uL Red Blood Count 2.39 L 4.00-5.50 MIL/uL Hemoglobin 7.7 L 12.0-16.0 g/dL Hematocrit 26.1 L 36-48 % Mean Corpuscular Volume 109.2 H 79-99 fL Mean Corpuscular Hemoglobin 32.2 27.0-33.0 pg Mean Corpuscular Hemoglobin Concent 29.5 L 32.0-36.0 g/dL Red Cell Distribution Width 18.4 H 11.0-15.5 % Platelet Count 179 130-400 K/uL Mean Platelet Volume 10.5 7.5-10.5 fL Immature Granulocyte % (Auto) 1.3 H 0-1 % Neutrophils (%) (Auto) 95.1 H 40.0-77.0 % Lymphocytes (%) (Auto) 1.7 L 21.0-51.0 % Monocytes (%) (Auto) 1.8 L 3.0-13.0 % Eosinophils (%) (Auto) 0.0 0.0-8.0 % Basophils (%) (Auto) 0.1 0.0-5.0 % Neutrophils # (Auto) 20.4 H 1.8-7.7 K/uL Lymphocytes # (Auto) 0.4 L 1.0-4.8 K/uL Monocytes # (Auto) 0.4 0.1-1.0 K/uL Eosinophils # (Auto) 0.00 0.00-0.70 K/uL Basophils # (Auto) 0.03 0.00-0.20 K/uL Absolute Immature Granulocyte (auto 0.28 0-1 K/uL Nucleated Red Blood Cells 0.1 0.0-0.19 % Prothrombin Time 47.4 #*H 9.6-11.6 SEC Prothromb Time International Ratio 5.27 *H 0.85-1.15 Sodium Level 139 136-145 mmol/L Potassium Level 4.1 3.5-5.1 mmol/L Chloride Level 101 101-111 mmol/L Carbon Dioxide Level 36 H 21-32 mmol/L Blood Urea Nitrogen 35 H 7-18 mg/dL Creatinine 1.5 H 0.5-1.0 mg/dL Glomerular Filtration Rate Calc 34 >90 mL/min Random Glucose 134 H 70-105 mg/dL Total Calcium 8.2 L 8.5-10.1 mg/dL Magnesium Level 2.10 1.80-2.40 mg/dL Total Bilirubin 0.5 # 0.2-1.0 mg/dL Aspartate Amino Transf (AST/SGOT) 20 10-37 U/L Alanine Aminotransferase (ALT/SGPT) 16 12-78 U/L Alkaline Phosphatase 59 50-136 U/L Total Protein 6.7 6.0-8.3 g/dL Albumin 2.7 L 3.5-5.0 g/dL Blood Gas Specimen Type Arterial Arterial Blood pH 7.330 L 7.350-7.450 Arterial Blood Partial Pressure CO2 62 *H 32-45 mmHg Arterial Blood Partial Pressure O2 114.6 H 83.0-108.0 mmHg Arterial Blood HCO3 32.2 H 21.0-28.0 mmol/L Arterial Blood Oxygen Saturation 98.0 94.0-98.0 % Arterial Blood Base Excess 5.2 H -2.0-3.0 mmol/L Hemoglobin (Blood Gas) 8.7 L 12.0-16.0 g/dL Sodium (Blood Gas) 141 136-145 MMOL/L Bedside Potassium (Blood Gas) 4.2 3.4-4.5 MMOL/L Bedside Chloride (Blood Gas) 99 98-107 MMOL/L Bedside Glucose (Blood Gas) 134 H 65-95 MG/DL Bedside Ionized Calcium (Blood Gas) 1.11 L 1.15-1.33 MMOL/L Bedside Lactic Acid (Blood Gas) 1.33 H 0.36-0.75 MMOL/L Blood Gas Temperature 37.0 35.5-37.0 CELSIUS Blood Gas Flow-by 4.00 0.00-15.00 L/min Blood Gas Vent Mode NC ROOM AIR FiO2 36.0 % Blood Gas Specimen Comment WILBER RN ,RR B-Type Natriuretic Peptide 223 H 0-100 pg/mL Group A Streptococcus Rapid negative NEGATIVE ASSESSMENT: Gram-negative bacteremia. Acute hypoxic respiratory failure, requiring oxygen support. Pneumonia. Sepsis. Leukocytosis. Anemia. Renal failure. PLAN: Continue Zosyn. Continue doxycycline. We will follow up on the final blood culture results. Continue GI prophylaxis. Continue IV steroids. Continue oxygen support. We will place a PICC line if the repeat blood cultures are negative. This case was reviewed and discussed with my supervising physician Dr. Lenz and the above assessment and plan was formulated and agreed upon. ATTESTATION BY PHYSICIAN I have seen and examined the patient. I reviewed the documentation, medical decision making, and treatment plan as noted by the mid-level provider above. I agree with the findings and plan of care. DIAN LENZ MD, [facility] Jul 14, 2025 17:34
[2025-07-14] MEDS: BRIMONIDINE TARTRATE 0.2% 5 ML BOTTLE OU SCH (21:32)
[2025-07-14] MEDS: MELATONIN 5 MG TABLET PO SCH (21:40)
[2025-07-14] MEDS: LATANOPROST 2.5 ML DROPS OU SCH (21:44)
[2025-07-15] VITALS (9 sets, daily range): BP systolic 115–131; BP diastolic 57–75; PULSE 63–83; RESP 18–26; TEMP 97.7–98.6; O2SAT 95–98
[2025-07-15 03:49] LABS: ABG BASE EXCESS 4.3 mmol/L (-2.0-3.0); ABG HCO3 30.7 mmol/L (21.0-28.0); ABG OXYGEN SATURATION 97.1 % (94.0-98.0); ABG PCO2 56 mmHg (32-45); ABG PH 7.357 (7.350-7.450); CARBON MONOXIDE 0.7 % (0.5-1.5); DEVICE COMMENT OSCAR RN ,LR; PO2, ARTERIAL BG 101.8 mmHg (83.0-108.0); TEMPERATURE, CELSIUS BG 37.0 CELSIUS (35.5-37.0); VENT MODE, BG NC (ROOM AIR)
[2025-07-15 04:45] LABS: IMMATURE GRANULOCYTE ABSOLUTE 0.22 K/uL (0-1); NUCLEATED RED BLOOD CELLS 0.1 % (0.0-0.19); PLATELET COUNT (AUTO) 173 K/uL (130-400); RED BLOOD CELL COUNT(AUTO) 2.47 MIL/uL (4.00-5.50); RED CELL DISTRIBUTION WIDTH 18.5 % (11.0-15.5); WHITE BLOOD COUNT (AUTO) 17.5 K/uL (4.8-10.8)
[2025-07-15 05:05] LABS: INR 3.63 (0.85-1.15)
[2025-07-15 05:08] LABS: ASPARTATE AMINOTRANSFERASE 20.0 U/L (10-37); CREATININE 1.5 mg/dL (0.5-1.0); GLOMERULAR FILTR. RATE CALC 34.0 mL/min (>90); GLUCOSE,RANDOM 154.0 mg/dL (70-105); SODIUM SERUM 139.0 mmol/L (136-145); TOTAL PROTEIN, SERUM 7.0 g/dL (6.0-8.3); UREA NITROGEN, BLOOD 38.0 mg/dL (7-18)
[2025-07-15] MEDS: PoTASSium chloRIDE 20MEQ ER 20 MEQ ERTAB PO PRN (05:50)
--- NOTE | 2025-07-15 06:56 | PN ---
[facility] Cardiology Progress Note CARDIOLOGY PROGRESS NOTE 2024 Problems: 1. Acute respiratory failure with BNP of 223, probably normal for age 2. Right upper lobe pneumonia 3. Sepsis 4. Mitral regurgitation status post [place] mechanical mitral valve replacement July 2011 with normal coronary arteries at that time with LV ejection fraction of 55-60% and grade diastolic left ventricular dysfunction by echo this admission 5. Persistent atrial fibrillation 6. Chronic anticoagulation with warfarin 7. AV node ablation 2008 8. 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 Acute on chronic kidney disease stage IIIB This morning blood pressure is running 20/50 heart rate is 60s the patient is [place]feb[place]. [place] [address] hemoglobin 7.8 [place] [address]. Potassium 3.6 BUN38 creatinine 1.5 Baseline creatinine 1.1 with BUN of 26. Clinically the patient was not in CHF and was taken off IV furosemide which was started on admission and switch to oral furosemide 40 mg b.i.d. which was her home dose. This point given the elevated BUN and creatinine we will reduce the dose down to 40 mg daily. And observe. INR on admission was high warfarin was held and then restarted at a much reduced dose of2 mg daily but despite this INR shot up. Most likely from interaction with antibiotics. Recurrent INR has come down. When INR is down to three we will plan on restarting her INR at 2 mg daily. Her home dose was 2.5 mg Friday and5 mg other days. We will continue to monitor INR over the weekend and adjust anticoagulation. On examination today bowel sounds are crisp. MOR RED MD Jul 15, 2025 06:56
--- NOTE | 2025-07-15 10:06 | PN ---
[facility] PROGRESS NOTE Date Patient Seen: Jul 15, 2025 Time of Visit: 09:57 Supervising Physician: Ned Wells Primary Care Physician: JOVANNA ARMENTA Outpatient Specialists: Inpatient Consults: DR LELO HYMAN ATTENDING PHYSICIAN: YUMIKO PROBLEM LIST: Acute hypoxemic respiratory failure on IMPROVING History of congestive heart failure with MECHANICAL mitral valve replacement Atrial fibrillation supra-therapeutic INR Advanced pulmonary fibrosis, oxygen dependent Acinetobacter bacteremia Right upper lobe pneumoniae, POA suspected aspiration Acute on chronic anemia BINU on chronic kidney disease Pulmonary Fibrosis Sepsis (tachypnea, leukocytosis, fever on presentation) PLAN SUMMARY: Supplemental oxygen as needed Wean off as tolerated Duo nebs as needed BiPAP nightly and p.r.n. Continue atorvastatin Continue carvedilol Continue Solu-Medrol Daily INRs PT as tolerated Continue antibiotics as per Infectious Disease Dispo: Solara as per attending INTERVAL HISTORY: 07/13 Chart reviewed including all laboratory and imaging results. White count continues trending down 21.2 today H&H is 7.9/25.9 seems stable platelet count of 189 K. Neutrophils 94.8. Creatinine of 1.3 GFR of 40 similar to yesterday BNP of 223 decreased from 1150. Latest ABG shows a pH of 7.29, PO2 of 112 bicarb of 32.9. Denies chest pain, palpitation, or shortness for breath. Currently on 4 L via Oxymizer in no apparent respiratory distress respiratory rate of 21 saturating 99% on 4 L. we will continue AVAPS PRN and HS. Hemodynamically stable. Patient had episode of confusion overnight as per RN. Decrease Solu-Medrol to 40 mg b.i.d. start physical therapy. Start clear liquid diet as tolerated. Downgrade to PCCU floor to avoid delirium. 07/14 - patient is seen sitting up in bed appears to be weak, deconditioned hypoxemic currently on2 L via nasal cannula. Patient does admit she continues improving daily. Patient's warfarin remains on hold and today's labs show an INR of 5.27. Patient continues on broad-spectrum antibiotics for pneumonia. Patient does continue with leukocytosis and most recent procalcitonin of 4.20. Recommend continue current antibiotic treatment plan. Patient was evaluated by Cardiology and recommended continue current cardioprotective medications along with diuretics. No plans for vitamin K less active bleeding is noted. Continue to monitor INRs daily. Patient has been referred to LTAC and currently pending acceptance. We will continue to follow up with you. 07/15 - patient is seen sitting up in a chair continues to be weak however improving daily. Patient continues to be hypoxemic requiring2 L cannula however respiratory status is improving daily. No acute changes reported overnight. We are still pending today's chest x-ray for review. Vital signs are stable. Labs show white count is trending down. Procalcitonin trended down to 1.29 from 4.20. Recommend continue current antibiotic treatments for now as per Infectious Disease. Was informed by nursing that patient has been accepted to [facility]. Patient's warfarin her remains on hold. Today's INR was 3.6. As per Cardiology recommendations we will continue to hold until INR is down to a and restart her warfarin at 2 mg daily. Patient had an MBSS performed yesterday was found to have no aspiration or penetration. Recommendations are continue with regular solids with thin liquids. We will continue to follow with you. REVIEW OF SYSTEMS: 12 point ROS reviewed with patient. Pertinent positives mentioned above. Otherwise negative. PHYSICAL EXAM: GENERAL: alert, weak, awake oriented x 3 HEENT: EOMI, Sclera non icteric, moist mucosa NECK: Supple, no JVD, trachea midline LUNGS: Diminished breath sounds bilaterally. No wheezes HEART: Regular rate and rhythm. Normal S1 and S2, without murmurs ABD: Abdomen soft, nontender. Bowel sounds present EXT: No clubbing cyanosis or edema NEURO: Alert and oriented to person, follows commands Vital Signs (last 8hr) Date Time Temp Pulse Resp B/P (MAP) Pulse Ox O2 Delivery O2 Flow Rate FiO2 07/15/25 08:18 131/58 07/15/25 08:00 98.6 63 20 131/58 95 Nasal Cannula 07/15/25 06:50 69 18 N/Cannula Low lpm 3.0 32 07/15/25 06:47 69 18 07/15/25 04:00 98.1 82 18 120/57 97 Nasal Cannula 4.0 LABS: Hematology Labs: Test 07/15/25 03:58 Range/Units White Blood Count 17.5 H 4.8-10.8 K/uL Red Blood Count 2.47 L 4.00-5.50 MIL/uL Hemoglobin 7.8 L 12.0-16.0 g/dL Hematocrit 26.7 L 36-48 % Mean Corpuscular Volume 108.1 H 79-99 fL Mean Corpuscular Hemoglobin 31.6 27.0-33.0 pg Mean Corpuscular Hemoglobin Concent 29.2 L 32.0-36.0 g/dL Red Cell Distribution Width 18.5 H 11.0-15.5 % Platelet Count 173 130-400 K/uL Mean Platelet Volume 10.9 H 7.5-10.5 fL Immature Granulocyte % (Auto) 1.3 H 0-1 % Neutrophils (%) (Auto) 95.5 H 40.0-77.0 % Lymphocytes (%) (Auto) 2.1 L 21.0-51.0 % Monocytes (%) (Auto) 1.0 L 3.0-13.0 % Eosinophils (%) (Auto) 0.0 0.0-8.0 % Basophils (%) (Auto) 0.1 0.0-5.0 % Neutrophils # (Auto) 16.8 H 1.8-7.7 K/uL Lymphocytes # (Auto) 0.4 L 1.0-4.8 K/uL Monocytes # (Auto) 0.2 0.1-1.0 K/uL Eosinophils # (Auto) 0.00 0.00-0.70 K/uL Basophils # (Auto) 0.01 0.00-0.20 K/uL Absolute Immature Granulocyte (auto 0.22 0-1 K/uL Nucleated Red Blood Cells 0.1 0.0-0.19 % Chemistry Labs: Test 07/15/25 03:58 Range/Units Sodium Level 139 136-145 mmol/L Potassium Level 3.6 3.5-5.1 mmol/L Chloride Level 99 L 101-111 mmol/L Carbon Dioxide Level 37 H 21-32 mmol/L Blood Urea Nitrogen 38 H 7-18 mg/dL Creatinine 1.5 H 0.5-1.0 mg/dL Glomerular Filtration Rate Calc 34 >90 mL/min Random Glucose 154 H 70-105 mg/dL Total Calcium 8.2 L 8.5-10.1 mg/dL Magnesium Level 2.30 1.80-2.40 mg/dL Total Bilirubin 0.5 0.2-1.0 mg/dL Aspartate Amino Transf (AST/SGOT) 20 10-37 U/L Alanine Aminotransferase (ALT/SGPT) 20 # 12-78 U/L Alkaline Phosphatase 67 50-136 U/L Total Protein 7.0 6.0-8.3 g/dL Albumin 2.8 L 3.5-5.0 g/dL Procalcitonin 1.29 H 0.05-0.5 ng/mL Coagulation Labs: Test 07/15/25 03:58 Range/Units Prothrombin Time 33.9 #H 9.6-11.6 SEC Prothromb Time International Ratio 3.63 *H 0.85-1.15 DIAGNOSTICS / RADIOLOGY RESULTS: PATIENT: PK BATEMAN MR#: [id number] : 1940 SEX: F AGE: 84 LOCATION: FORMERLY [facility], 1928–1983 ORDER 2300 STATUS: ADM IN REPORT#: [id number] SERVICE 0600 REASON: PNEUMONIA ORDERING PHYSICIAN: BRYNN BALDWIN MD PROCEDURE: CXR1VW - CHEST 1VW EXAM: CR Chest, 1 View. CLINICAL HISTORY: PNEUMONIA COMPARISON: Yesterday. FINDINGS: LUNGS: Patchy airspace disease throughout the right lung most prominent in the upper lobe likely compatible with multifocal pneumonia. PLEURAL SPACES: Small bilateral pleural effusion. MEDIASTINUM: Status post median sternotomy. BONES: No aggressive appearing osseous lesion seen. MISCELLANEOUS: Left-sided pacemaker. IMPRESSION: 1. Multifocal pneumonia in the right lung, most prominent in the upper lobe. 2. Small bilateral pleural effusions. 3. Status post median sternotomy. 4. Left-sided pacemaker. /[place] DICTATED BY: FAYE PAULINO MD DATE: 07/14/251109 ELECTRONICALLY SIGNED BY: FAYE PAULINO MD DATE: 07/14/251109 PLAN NEURO: Minimize central acting medications as possible. Maintain fall precautions, adequate lighting during the day PULMONARY: Supplemental 02 as needed. Maintain aspiration precautions at all times CARDIOVASCULAR: Follow hemodynamics. Vital signs per facility protocol GI & NUTRITION: Continue with nutritional support. Continue stool softeners and laxatives as needed. KIDNEYS & ELECTROLYTES: Strict monitoring of intake, output and overall fluid balance. Avoid nephrotoxic medications to the extent possible. Medications to be dosed according to renal function. Monitor electrolytes and replace as needed ENDOCRINE: Maintain blood glucose between 100-180 at all times. Hypoglycemia protocol in place INFECTIOUS DISEASE: Trend temperature, WBC and procalcitonin level Follow cultures, deescalate antibiotics as soon as possible. Panculture if new onset fever ONCOLOGY/HEMATOLOGY/COAGULATION: Monitor for s/s of bleeding Monitor hemoglobin, coagulation studies as needed SKIN: Pressure ulcer prevention per facility protocol Specialty mattress ORTHO/REHAB: Continue PT/OT Prophylaxis: Continue GI and DVT prophylaxis Code Status: Full Resuscitation Disposition: As per attending Other: Total patient care time exceeds 35 minutes excluding all procedures. ATTESTATION BY PHYSICIAN I reviewed the documentation, medical decision making, and treatment plan as noted by the mid-level provider above. I agree with the findings and plan of care. Tim Wells MD, ECTOR N NP Jul 15, 2025 10:06
[2025-07-15] MEDS: BENZONATATE 100 MG CAPSULE PO SCH (10:39)
[2025-07-15] MEDS: guaiFENesin-DM 200/20MG 10ML PO PRN (10:39)
[2025-07-15 12:13] LABS: APPEARANCE,URINE CLEAR (CLEAR); GLUCOSE, URINE (UA) NEGATIVE (NEGATIVE); LEUKOCYTE ESTERASE ,URINE 75 Leu/uL (NEGATIVE); NITRATE,URINE NEGATIVE (NEGATIVE); OCCULT BLOOD,URINE NEGATIVE (NEGATIVE)
[2025-07-15 12:14] LABS: ADD UA MICROSCOPIC YES
[2025-07-15 12:21] LABS: SQUAMOUS EPITHELIAL CELL,UR RARE /HPF (0-2)
--- NOTE | 2025-07-15 12:33 | PN ---
The patient is an 84-year-old female with a history of mitral valve replacement, chronic congestive heart failure, atrial fibrillation, and advanced pulmonary fibrosis requiring supplemental oxygen at baseline. She presented to the emergency department with progressive shortness of breath and cough. She was hypoxemic on arrival, requiring escalation to BiPAP support. Initial evaluation demonstrated leukocytosis, anemia, BINU, and electrolyte derangements. Chest imaging suggested bilateral pneumonia. Patient improved significantly. Patient off BiPAP. Patient on nasal cannula. Patient receiving antibiotic treatment for her pneumonia and bacteremia. There is a plan to transfer her to medical floor. There is a plan to send this patient to [facility]. PHYSICAL EXAM GENERAL: ALERT, ORIENTED EYES: PUPILS EQUAL/REACTIVE, EXTRAOCULAR MUSCLES INTCT RESPIRATORY: LUNGS CLEAR-AUSC/PERCUS CARDIOVASCULAR: REGULAR RATE, REGULAR RHYTHM NEUROLOGICAL: GROSSLY INTACT Assessment 1. Anemia. Hemoglobin level continue to be 8.4 g/deciliter 2. Leukocytosis 3. 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 Osteoporosis 5. Respiratory failure with the patient on BiPAP. Patient is a DO NOT INTUBATE. Plan 1. Low hemoglobin is stable. There is no need for blood product transfusion. There is no need for blood product transfusion 2. Patient DO NOT INTUBATE. 3. Respiratory function improved significantly with the patient on nasal cannula of oxygen 4. Continue antibiotic treatment. The patient was pneumonia and bacteremia. It seems the patient doing very well at this time 5. I have long discussion with the patient and family member regarding the plan of care. I answer all question and concern and I spent more than 35 minutes. There was 2 family member in the room. I explained to them that she is stable from hematology point of view. The patient will need antibiotic treatment at least maybe 4 to 2 weeks. Patient to be treated as per infectious disease specialist Vitals/Labs Vital Signs Date Time Temp Pulse Resp B/P (MAP) Pulse Ox O2 Delivery O2 Flow Rate FiO2 07/15/25 11:42 97.7 70 20 118/59 96 Room Air 07/15/25 06:50 3.0 32 Laboratory Tests 07/15/25 03:58 Medications Current Medications Albuterol 1 udvial ONCE ONCE IH Last administered on 07/11/25at 09:43; Start 07/11/25 at 09:00; Stop 07/11/25 at 09:01; Status DC Furosemide 40 mg ONCE ONCE IVP Last administered on 07/11/25at 09:41; Start 07/11/25 at 09:00; Stop 07/11/25 at 09:01; Status DC Piperacillin Sod/ Tazobactam Sod 3.375 gm ONCE ONCE IV Last administered on 07/11/25at 10:51; Start 07/11/25 at 10:00; Stop 07/11/25 at 10:01; Status DC Azithromycin 250 ml @ 250 mls/hr ONCE ONCE IVPB Last administered on 07/11/25at 10:56; Start 07/11/25 at 10:00; Stop 07/11/25 at 10:59; Status DC Lactated Ringer's 500 ml @ 0 mls/hr ONCE ONCE IV Last administered on 07/11/25at 10:51; Start 07/11/25 at 10:00; Stop 07/11/25 at 10:01; Status DC Acetaminophen 1,000 mg ONCE ONCE PO Last administered on 07/11/25at 10:56; Start 07/11/25 at 11:00; Stop 07/11/25 at 11:01; Status DC Lactulose 20 gm BID PRN PO; Start 07/11/25 at 11:00; Stop 08/10/25 at 10:59 Pantoprazole Sodium 40 mg BID IVP Last administered on 07/15/25at 08:19; Start 07/11/25 at 21:00; Stop 08/10/25 at 20:59 Acetaminophen 650 mg Q4H PRN PO Last administered on 07/14/25at 14:21; Start 07/11/25 at 11:00; Stop 08/10/25 at 10:59 Albuterol 1 UDVIAL Q6H PRN IH Last administered on 07/12/25at 11:13; Start 07/11/25 at 11:00; Stop 08/10/25 at 10:59 Cefepime HCl 2 gm Q24H IVPB Last administered on 07/11/25at 13:07; Start 07/11/25 at 11:00; Stop 07/12/25 at 12:08; Status DC Vancomycin HCl 1 gm Q12H IV; Start 07/11/25 at 11:00; Stop 07/11/25 at 11:02; Status DC Potassium Chloride 100 ml @ 100 mls/hr AD PRN IV; Start 07/11/25 at 11:30; Stop 08/10/25 at 11:29 Potassium Chloride 20 meq AD PRN PO; Start 07/11/25 at 11:30; Stop 08/10/25 at 11:29 Potassium Chloride 20 meq AD PRN PO Last administered on 07/15/25at 05:50; Start 07/11/25 at 11:30; Stop 08/10/25 at 11:29 Magnesium Sulfate 50 ml @ 0 mls/hr PROTOCOL PRN IV; Start 07/11/25 at 11:30; Stop 08/10/25 at 11:29 Furosemide 40 mg Q12H IV Last administered on 07/11/25at 20:03; Start 07/11/25 at 21:00; Stop 07/12/25 at 07:56; Status DC Warfarin Sodium 5 mg QMOWEFR PO; Start 07/11/25 at 16:00; Stop 07/11/25 at 15:37; Status DC Warfarin Sodium 2.5 mg QTUTHSA PO; Start 07/12/25 at 09:00; Stop 07/11/25 at 15:37; Status DC Carvedilol 3.125 mg BID PO Last administered on 07/15/25at 08:18; Start 07/11/25 at 21:00; Stop 08/10/25 at 20:59 Losartan Potassium 25 mg DAILY PO; Start 07/12/25 at 09:00; Stop 07/12/25 at 11:47; Status DC Atorvastatin Calcium 10 mg HS PO Last administered on 07/14/25at 21:33; Start 07/11/25 at 21:00; Stop 08/10/25 at 20:59 Docusate Sodium 100 mg BID PRN PO; Start 07/11/25 at 12:00; Stop 08/10/25 at 11:59 Folic Acid 1 mg DAILY PO; Start 07/12/25 at 09:00; Stop 07/12/25 at 09:40; Status DC Ferrous Sulfate 325 mg DAILY PO Last administered on 07/15/25at 08:19; Start 07/12/25 at 09:00; Stop 08/11/25 at 08:59 Warfarin Sodium 2.5 mg QSU PO; Start 07/17/25 at 09:00; Stop 07/11/25 at 15:37; Status DC Doxycycline Hyclate 100 mg BID PO Last administered on 07/15/25at 08:19; Start 07/11/25 at 21:00; Stop 07/21/25 at 20:59 Sodium Chloride 4 ml STK-MED ONCE IH Last administered on 07/11/25at 13:58; Start 07/11/25 at 13:39; Stop 07/11/25 at 13:39; Status DC Acetaminophen 650 mg Q6H PRN PO Last administered on 07/11/25at 15:31; Start 07/11/25 at 15:30; Stop 08/10/25 at 15:29 Lidocaine 1 each Q24H TP Last administered on 07/13/25at 16:14; Start 07/11/25 at 16:00; Stop 08/10/25 at 15:59 Allopurinol 50 mg Q48H PO Last administered on 07/14/25at 10:10; Start 07/12/25 at 09:00; Stop 08/11/25 at 08:59 Sodium Chloride 4 ml STK-MED ONCE IH Last administered on 07/11/25at 18:40; Start 07/11/25 at 18:31; Stop 07/11/25 at 18:32; Status DC Sodium Chloride 4 ml STK-MED ONCE IH Last administered on 07/11/25at 23:22; Start 07/11/25 at 23:13; Stop 07/11/25 at 23:13; Status DC Warfarin Sodium 2 mg WARF PO Last administered on 07/12/25at 15:23; Start 07/12/25 at 16:00; Stop 07/13/25 at 06:54; Status DC Furosemide 40 mg BID@09,17 PO Last administered on 07/14/25at 17:00; Start 07/12/25 at 09:00; Stop 07/15/25 at 07:13; Status DC Metronidazole/ Sodium Chloride 100 ml @ 100 mls/hr Q8H IVPB Last administered on 07/12/25at 10:02; Start 07/12/25 at 10:00; Stop 07/12/25 at 15:27; Status DC Thiamine HCl 100 mg DAILY IVP Last administered on 07/15/25at 08:19; Start 07/13/25 at 09:00; Stop 08/12/25 at 08:59 Piperacillin Sod/ Tazobactam Sod 3.375 gm Q8H IV Last administered on 07/15/25at 05:51; Start 07/12/25 at 12:30; Stop 07/15/25 at 11:45; Status DC Methylprednisolone Sodium Succinate 40 mg Q8H IVP Last administered on 07/13/25at 06:37; Start 07/12/25 at 15:30; Stop 07/13/25 at 09:37; Status DC Albuterol 1 udvial [id number] IH Last administered on 07/15/25at 06:47; Start 07/12/25 at 18:00; Stop 08/11/25 at 17:59 Morphine Sulfate 1 mg ONCE ONCE IVP Last administered on 07/13/25at 02:52; Start 07/13/25 at 03:00; Stop 07/13/25 at 03:01; Status DC Dexmedetomidine/ Sodium Chloride 200 mcg PROTOCOL IV; Start 07/13/25 at 05:00; Stop 07/13/25 at 04:45; Status DC Dexmedetomidine/ Sodium Chloride 400 mcg PROTOCOL IV Last administered on 07/13/25at 04:55; Start 07/13/25 at 05:00; Stop 08/12/25 at 04:59 Methylprednisolone Sodium Succinate 40 mg Q12H IVP Last administered on 07/15/25at 08:19; Start 07/13/25 at 19:30; Stop 08/11/25 at 15:29 Melatonin 5 mg HSPRN PO Last administered on 07/14/25at 21:40; Start 07/13/25 at 20:30; Stop 08/12/25 at 20:29 Melatonin 5 mg STK-MED ONCE PO Last administered on 07/13/25at 20:33; Start 07/13/25 at 20:16; Stop 07/13/25 at 20:16; Status DC Latanoprost 1 DROP HS OU Last administered on 07/14/25at 21:44; Start 07/14/25 at 21:00; Stop 08/13/25 at 20:59 Pharmacy Profile Note 1 each ONCE MISC; Start 07/14/25 at 15:30; Stop 07/14/25 at 15:09; Status DC Brimonidine Tartrate 1 DROP BID OU Last administered on 07/15/25at 08:19; Start 07/14/25 at 21:00; Stop 08/13/25 at 20:59 Furosemide 40 mg DAILY PO Last administered on 07/15/25at 08:21; Start 07/15/25 at 07:30; Stop 08/11/25 at 08:59 Benzonatate 200 mg Q8H PO Last administered on 07/15/25at 10:39; Start 07/15/25 at 10:00; Stop 08/14/25 at 09:59 Guaifenesin/ Dextromethorphan 10 ml Q6H PRN PO Last administered on 07/15/25at 10:39; Start 07/15/25 at 10:00; Stop 08/14/25 at 09:59 Ceftazidime 1 gm Q24H IVPB; Start 07/15/25 at 12:00; Stop 07/25/25 at 11:59 LYDIA PAUL MD Jul 15, 2025 12:33
--- NOTE | 2025-07-15 13:50 | PN ---
[facility] PROGRESS NOTE Date of Service: Jul 15, 2025 Time of Service: 13:48 SUBJECTIVE: [ ] This is a 84-year-old female that presents in ED with chief complaints of shortness a breath. She was brought in by EMS in route patient was placed on non-rebreather. Patient has past medical history of congestive heart failure mitral valve replacement on Coumadin, AFib, advanced pulmonary fibrosis oxygen dependent. Onset shortness a breath has been gradually and progressed over the weekend. Severity severe aggravating factors activity laying flat. Alleviating factors none. Associated symptoms productive cough, mild chills overnight. Patient reports choking with thin liquids. Patient was admitted a month ago at [facility] for similar symptoms. Patient follows sausage meat trimmer's Dr. Sachin Maynard MD. [facility] primary label press operator's Dr. Stevens. Spoke with RIRI: Neva Garrison modified DNR on this admission 07/12/25 patient was seen earlier patient continues on AVPS support. 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 clinical studies specialist consulted for nutritional support recommendations . the patient is fully awake and alert. I discussed Hospice Palliative care and LTAC with RIRI Garrison. WE will continue to monitor patient progress. critical care following: goal to Titrate Fio2 to keep Spo2 > or = 90% Weaned Bipap. 07/13/25 patient was seen earlier. Case management discussed LTAC with medical [id number] and she agreed for patient to be transitioned to LTAC. Patient needs three nights of telemetry be completed tomorrow. Patient continues on BiPAP support continues with trials. Continues broad broad- spectrum antibiotics. Patient was evaluated by speech was started on pureed diet. 07/14/25 was transitioned to PCCU overnight. Patient continues with nasal ca nnula 2 L throughout the day and overnight. Patient waiting for acceptance to LTAC. Primary nurse reports no events overnight 07/15/25 patient was seen earlier we continue to wait for blood cultures final report continue with broad-spectrum patient got accepted to LTAC. Occult blood was positive we will consult GI. INR today 3.6 from 5.2 REVIEW OF SYSTEMS A 12 point ROS obtained all relevant positive documented otherwise ROS negative PHYSICAL EXAM GENERAL APPEARANCE: The patient is awake, alert, and oriented, acute cardiopulmonary distress on Bipap support NEUROLOGICAL: Cranial nerves II-XII grossly intact. Motor is 5/5 in bilateral upper and lower extremities proximal to distal. No sensory deficits. HEENT: Face is symmetric. Pupils are equal and reactive. Extraocular movements are intact. NECK: Supple. No JVD. No thyromegaly. No submental, submandibular, pre- /postauricular, occipital or supraclavicular lymphadenopathy. CHEST: Normal chest expansion. ++Telemetry. LUNGS:++ rales, rhonchi CARDIOVASCULAR: Regular. S1 and S2 normal. No appreciable rubs, murmurs or gallops. ABDOMEN: Soft, nontender, and nondistended. There is no rebound, voluntary guarding, or rigidity. : Deferred. No Cantu. EXTREMITIES: slight-edematous lower ext. and not cyanotic. No clubbing. Good capillary refill. SKIN: No skin breakdown. Vital Signs (last 8hr) Date Time Temp Pulse Resp B/P (MAP) Pulse Ox O2 Delivery O2 Flow Rate FiO2 07/15/25 12:36 72 18 07/15/25 11:42 97.7 70 20 118/59 96 Room Air 07/15/25 08:18 131/58 07/15/25 08:00 98.6 63 20 131/58 95 Nasal Cannula 07/15/25 06:50 69 18 N/Cannula Low lpm 3.0 32 07/15/25 06:47 69 18 LABS: Laboratory: Test 07/15/25 10:40 07/15/25 03:58 07/15/25 03:48 Range/Units Urine Color LIGHT-YELLOW YELLOW Urine Appearance CLEAR CLEAR Urine pH 5.5 5.0-8.0 Urine Specific [place] 1.019 1.001-1.031 Urine Protein NEGATIVE NEGATIVE mg/dL Urine Glucose (UA) NEGATIVE NEGATIVE mg/dL Urine Ketones NEGATIVE NEGATIVE mg/dL Urine Occult Blood NEGATIVE NEGATIVE Urine Nitrate NEGATIVE NEGATIVE Urine Bilirubin NEGATIVE NEGATIVE mg/dL Urine Urobilinogen 0.2 0.2-1.0 mg/dL Urine Leukocyte Esterase 75 H NEGATIVE Afshan/uL Urine RBC 2-5 H 0-1 /HPF Urine WBC 11-25 H 0-1 /HPF Urine Squamous Epithelial Cells RARE 0-2 /HPF Urine Bacteria None None Seen /HPF Stool Occult Blood POSITIVE H NEGATIVE White Blood Count 17.5 H 4.8-10.8 K/uL Red Blood Count 2.47 L 4.00-5.50 MIL/uL Hemoglobin 7.8 L 12.0-16.0 g/dL Hematocrit 26.7 L 36-48 % Mean Corpuscular Volume 108.1 H 79-99 fL Mean Corpuscular Hemoglobin 31.6 27.0-33.0 pg Mean Corpuscular Hemoglobin Concent 29.2 L 32.0-36.0 g/dL Red Cell Distribution Width 18.5 H 11.0-15.5 % Platelet Count 173 130-400 K/uL Mean Platelet Volume 10.9 H 7.5-10.5 fL Immature Granulocyte % (Auto) 1.3 H 0-1 % Neutrophils (%) (Auto) 95.5 H 40.0-77.0 % Lymphocytes (%) (Auto) 2.1 L 21.0-51.0 % Monocytes (%) (Auto) 1.0 L 3.0-13.0 % Eosinophils (%) (Auto) 0.0 0.0-8.0 % Basophils (%) (Auto) 0.1 0.0-5.0 % Neutrophils # (Auto) 16.8 H 1.8-7.7 K/uL Lymphocytes # (Auto) 0.4 L 1.0-4.8 K/uL Monocytes # (Auto) 0.2 0.1-1.0 K/uL Eosinophils # (Auto) 0.00 0.00-0.70 K/uL Basophils # (Auto) 0.01 0.00-0.20 K/uL Absolute Immature Granulocyte (auto 0.22 0-1 K/uL Nucleated Red Blood Cells 0.1 0.0-0.19 % Prothrombin Time 33.9 #H 9.6-11.6 SEC Prothromb Time International Ratio 3.63 *H 0.85-1.15 Sodium Level 139 136-145 mmol/L Potassium Level 3.6 3.5-5.1 mmol/L Chloride Level 99 L 101-111 mmol/L Carbon Dioxide Level 37 H 21-32 mmol/L Blood Urea Nitrogen 38 H 7-18 mg/dL Creatinine 1.5 H 0.5-1.0 mg/dL Glomerular Filtration Rate Calc 34 >90 mL/min Random Glucose 154 H 70-105 mg/dL Total Calcium 8.2 L 8.5-10.1 mg/dL Magnesium Level 2.30 1.80-2.40 mg/dL Total Bilirubin 0.5 0.2-1.0 mg/dL Aspartate Amino Transf (AST/SGOT) 20 10-37 U/L Alanine Aminotransferase (ALT/SGPT) 20 # 12-78 U/L Alkaline Phosphatase 67 50-136 U/L Total Protein 7.0 6.0-8.3 g/dL Albumin 2.8 L 3.5-5.0 g/dL Procalcitonin 1.29 H 0.05-0.5 ng/mL Blood Gas Specimen Type Arterial Arterial Blood pH 7.357 7.350-7.450 Arterial Blood Partial Pressure CO2 56 H 32-45 mmHg Arterial Blood Partial Pressure O2 101.8 83.0-108.0 mmHg Arterial Blood HCO3 30.7 H 21.0-28.0 mmol/L Arterial Blood Oxygen Saturation 97.1 94.0-98.0 % Arterial Blood Base Excess 4.3 H -2.0-3.0 mmol/L Hemoglobin (Blood Gas) 9.5 L 12.0-16.0 g/dL Sodium (Blood Gas) 141 136-145 MMOL/L Bedside Potassium (Blood Gas) 3.8 3.4-4.5 MMOL/L Bedside Chloride (Blood Gas) 100 98-107 MMOL/L Bedside Glucose (Blood Gas) 152 H 65-95 MG/DL Bedside Ionized Calcium (Blood Gas) 1.10 L 1.15-1.33 MMOL/L Bedside Lactic Acid (Blood Gas) 1.89 H 0.36-0.75 MMOL/L Blood Gas Temperature 37.0 35.5-37.0 CELSIUS Blood Gas Flow-by 3.00 0.00-15.00 L/min Blood Gas Vent Mode NC ROOM AIR FiO2 32.0 % Blood Gas Specimen Comment ALLAN RN ,LR Current Medications Medications (Trade) Dose Ordered Sig/Macey Route PRN Reason Start Time Stop Time Status Last Admin Dose Admin Acetaminophen (TYLenol 325MG TAB) 650 mg Q4H PRN PO TEMPERATURE GREATER THAN 101.5 07/11/25 11:00 08/10/25 10:59 07/14/25 14:21 650 MG Acetaminophen (TYLenol 325MG TAB) 650 mg Q6H PRN PO MILD PAIN (1-3) 07/11/25 15:30 08/10/25 15:29 07/11/25 15:31 650 MG Albuterol (DUOneb) 1 UDVIAL Q6H PRN IH SHORTNESS OF BREATH 07/11/25 11:00 08/10/25 10:59 07/12/25 11:13 1 UDVIAL Albuterol (DUOneb) 1 udvial [id number] IH 07/12/25 18:00 08/11/25 17:59 07/15/25 12:35 1 UDVIAL Allopurinol (ZYLOprim 100MG) 50 mg Q48H PO 07/12/25 09:00 08/11/25 08:59 07/14/25 10:10 50 MG Atorvastatin Calcium (LIPItor 10MG) 10 mg HS PO 07/11/25 21:00 08/10/25 20:59 07/14/25 21:33 10 MG Benzonatate (Tessalon 100mg Caps) 200 mg Q8H PO 07/15/25 10:00 08/14/25 09:59 07/15/25 10:39 200 MG Brimonidine Tartrate (Alphagan P) 1 DROP BID OU 07/14/25 21:00 08/13/25 20:59 07/15/25 08:19 1 ML Carvedilol (Coreg 3.125MG) 3.125 mg BID PO 07/11/25 21:00 08/10/25 20:59 07/15/25 08:18 3.125 MG Cefepime HCl (MAXipime 2 gm vial) 2 gm Q24H IVPB 07/11/25 11:00 07/12/25 12:08 DC 07/11/25 13:07 2 GM Ceftazidime (ForTAZ/TAZidime) 1 gm Q24H IVPB 07/15/25 12:00 07/25/25 11:59 07/15/25 12:37 1 GM Dexmedetomidine/ Sodium Chloride (PRECEdex 200MCG/ 50ML-NS) 200 mcg PROTOCOL IV 07/13/25 05:00 07/13/25 04:45 DC Dexmedetomidine/ Sodium Chloride (PRECEdex 400MCG/ 100ML-NS) 400 mcg PROTOCOL IV 07/13/25 05:00 08/12/25 04:59 07/13/25 04:55 400 MCG Docusate Sodium (COLace 100MG CAP) 100 mg BID PRN PO CONSTIPATION 07/11/25 12:00 08/10/25 11:59 Doxycycline Hyclate (Doxycycline Hyclate) 100 mg BID PO 07/11/25 21:00 07/21/25 20:59 07/15/25 08:19 100 MG Ferrous Sulfate (Ferrous Sulfate) 325 mg DAILY PO 07/12/25 09:00 08/11/25 08:59 07/15/25 08:19 325 MG Folic Acid (FOLic ACID 1 MG TABLET) 1 mg DAILY PO 07/12/25 09:00 07/12/25 09:40 DC Furosemide (LASix 40MG TAB) 40 mg BID@09,17 PO 07/12/25 09:00 07/15/25 07:13 DC 07/14/25 17:00 40 MG Furosemide (LASix 40MG TAB) 40 mg DAILY PO 07/15/25 07:30 08/11/25 08:59 07/15/25 08:21 40 MG Furosemide (LASix 40MG VIAL) 40 mg Q12H IV 07/11/25 21:00 07/12/25 07:56 DC 07/11/25 20:03 40 MG Guaifenesin/ Dextromethorphan (RobiTUSSin DM 200/20MG 10ML) 10 ml Q6H PRN PO COUGH 07/15/25 10:00 08/14/25 09:59 07/15/25 10:39 10 ML Lactulose (Constulose 20gm/ 30ml Udcup) 20 gm BID PRN PO CONSTIPATION 07/11/25 11:00 08/10/25 10:59 Latanoprost (Xalatan) 1 DROP HS OU 07/14/25 21:00 08/13/25 20:59 07/14/25 21:44 1 DROP Lidocaine (Lidocaine Patch 4%) 1 each Q24H TP 07/11/25 16:00 08/10/25 15:59 07/13/25 16:14 1 EACH Losartan Potassium (CozAAR 25MG TAB) 25 mg DAILY PO 07/12/25 09:00 07/12/25 11:47 DC Magnesium Sulfate 50 ml @ 0 mls/hr PROTOCOL PRN IV low mag level 07/11/25 11:30 08/10/25 11:29 Melatonin (Melatonin) 5 mg HSPRN PO 07/13/25 20:30 08/12/25 20:29 07/14/25 21:40 5 MG Methylprednisolone Sodium Succinate (Solu-medROL 40MG) 40 mg Q12H IVP 07/13/25 19:30 08/11/25 15:29 07/15/25 08:19 40 MG Methylprednisolone Sodium Succinate (Solu-medROL 40MG) 40 mg Q8H IVP 07/12/25 15:30 07/13/25 09:37 DC 07/13/25 06:37 40 MG Metronidazole/ Sodium Chloride 100 ml @ 100 mls/hr Q8H IVPB 07/12/25 10:00 07/12/25 15:27 DC 07/12/25 10:02 100 MLS/HR Pantoprazole Sodium (PROTonix 40MG INJ) 40 mg BID IVP 07/11/25 21:00 08/10/25 20:59 07/15/25 08:19 40 MG Pharmacy Profile Note (Pharmacy Communication) 1 each ONCE MISC 07/14/25 15:30 07/14/25 15:09 DC Piperacillin Sod/ Tazobactam Sod (Zosyn 3.375gm+NS 50ml) 3.375 gm Q8H IV 07/12/25 12:30 07/15/25 11:45 DC 07/15/25 05:51 3.375 GM Potassium Chloride 100 ml @ 100 mls/hr AD PRN IV POTASSIUM PROTOCOL 07/11/25 11:30 08/10/25 11:29 Potassium Chloride (K-Dur/Klor-Con 20meq) 20 meq AD PRN PO POTASSIUM PROTOCOL 07/11/25 11:30 08/10/25 11:29 07/15/25 05:50 20 MEQ Potassium Chloride (KCl 10% Elixir 20meq/15ml) 20 meq AD PRN PO POTASSIUM PROTOCOL 07/11/25 11:30 08/10/25 11:29 Thiamine HCl (Vitamin B-1) 100 mg DAILY IVP 07/13/25 09:00 08/12/25 08:59 07/15/25 08:19 100 MG Vancomycin HCl (Vancomycin 1g/ 250ml Kit) 1 gm Q12H IV 07/11/25 11:00 07/11/25 11:02 DC Warfarin Sodium (Coumadin) 2 mg WARF PO 07/12/25 16:00 07/13/25 06:54 DC 07/12/25 15:23 2 MG Warfarin Sodium (Coumadin) 2.5 mg QSU PO 07/17/25 09:00 07/11/25 15:37 DC Warfarin Sodium (Coumadin) 2.5 mg QTUTHSA PO 07/12/25 09:00 07/11/25 15:37 DC Warfarin Sodium (Coumadin) 5 mg QMOWEFR PO 07/11/25 16:00 07/11/25 15:37 DC DIAGNOSTICS / RADIOLOGY: [ ] ASSESSMENT: Acute respiratory failure with hypoxia POA requiring oxygen supplemental BiPAP support Suspecting aspiration pneumonia POA History advanced pulmonary fibrosis POA Home oxygen dependent POA acute CHF on Chronic CHF with Mitral value replacement Hypercoagulable state on Coumadin secondary to MVR persistent A fibb on Warfarin pOA Sepsis( temperature 103.6 heart rate 115 respirations 26) POA gram negative bacteremia POA BINU on chronic renal failure POA Acute anemia on chronic anemia POA debility with physical deconditioning Elevated Coumadin ( toxicity) not POA Leukocytosis most likely secondary to IV steroids POA PLAN: [ ] This is a 84-year-old woman with events pulmonary fibrosis was admitted for sepsis and acute respiratory failure with hypoxia patient continues IV steroids bronchodilators oxygen supplemental. Patient has a history aortic valve replacement currently heparin is placed on hold label press operator's is following no vitamin K was given per label press operator's given to no evidence active bleeding. Patient will be transitioned to LTAC, casa management arranging. Admit: ICU transition to PCCU condition: Guarded Status: MODIFIED DNR IVF: heplock Diet: Regular diet speech no signs of aspiration. Consultants critical team, label press operator and piano assembler Antibiotics: Zosyn 3.375 gm IV q8 hrs,. Doxycycline 100 mg IV b.i.d. continue to monitor WBC's trends, afebrile Microbiology: blood cultures growing gram negative robyn: repeat cultures so far negative in reference Resp failure with RUL pneumonia: Duo nebs as needed; IV steroids titrating. oxygen supplemental to keep O2 saturations above 92% Aspiration precautions head of the bed at 45 at all times, Labs cbc, cmp, mag+ in a.m. Replace electrolytes as needed as per protocol to keep potassium above 4.0 magnesium 2.0. avoid NSAIDS and renal dose medication fluid restriction1.5 liter daily strict I/O on Lasix IV bid [address] Stevens: goal to INR between 2-1/2 to 3-1/2. daily INR Coumadin is currently placed on hold INR 5.2 as per label press operator's no vitamin K at this time. will monitor H/H trends transfuse to keep HGB above 7. Training Personnel Supervisor following continue with carvedilol 3.125 mg p.o. b.i.d. for rate control continue Folic acid 1 mg po daily and ferrous sulfate 325 mg po daily Supportive measures: DVT ppx, GI ppx case management LTAC waiting for approval all questions answered Supervising MD: Dr. Osorio c/d This document was generated in part using voice recognition software, occasional wrong word or sound alike substitutions may have occurred due to the inherent limitations of voice recognition software. Read the chart carefully and recognize using context, where the substitutions have occurred. Although every effort was made to edit the content, mailing section clerk and typing errors may occur ATTESTATION BY PHYSICIAN I have seen and examined the patient. I reviewed the documentation, medical decision making, and treatment plan as noted by the mid-level provider above. I agree with the findings and plan of care. DAYANNA OSORIO MD, ELIZABETH NP Jul 15, 2025 13:50
--- NOTE | 2025-07-15 14:00 | NUR ---
SPEECH NOTE: MUSSEL FARMER coordinated with nurse Cecelia. Pt tolerating diet recommendations of regular solids, thin liquids with no over s/s of aspiration and with good oral intake. Please re-consult speech therapy services if any s/s of aspiration arise. All questions answered. Addendum: 07/15/[address] [facility]ILEY ROSA Amended: Links added.
--- NOTE | 2025-07-15 15:05 | CONS ---
GASTROENTEROLOGY CONSULTATION NOTE Date of Consultation: Jul 15, 2025 Time of Consultation: 15:02 History of Present Illness: [ ] Review of Systems: CONSTITUTIONAL: No malaise or change in sensation of wellbeing. ENMT: No rhinorrhea, otorrhea, sinus pain, ear ache. CARDIOVASCULAR: No angina, palpitations, orthopnea or paroxysmal dyspnea. RESPIRATORY: No SOB. GASTROINTESTINAL: No abdominal pain, nausea, vomiting, diarrhea, hematemesis, melena or change in the patient's habitual bowel movements consistency/number. GENITOURINARY: No dysuria, hematuria or change in bladder continence. MUSCULOSKELETAL: No new muscle pain or decrease in muscular strength. No new joint swelling, redness or tenderness. SKIN: No new rash. Past Medical History: [ ] Past Surgical History: [ ] Past Social History: [ ] Family History: [ ] Coded Allergies: No Known Drug Allergies (Unverified Allergy, Unknown, 08/03/18) Physical Exam: GEN: Awake, alert, oriented in person, time and place, and in no acute distress. HEENT: No sinus tenderness. Tympanic membranes were not examined. No rhinorrhea. Oral pharyngeal mucosa is pink, moist and within normal limits. Neck is supple with no cervical lymphadenopathy, thyromegaly or JVD. CHEST: Inspection, palpation and percussion of the chest were unremarkable. Lung auscultation revealed normal breath sounds bilaterally. CARDIAC: PMI is within normal limits. Heart sounds are regular. Normal S1, S2. No gallop or murmur. ABD: Soft, non-tender and not distended. No peritoneal signs on palpation. No organomegaly. Normal bowel sounds. EXT: No cyanosis or clubbing. No edema. SKIN: Intact. No rashes. JOINTS: No evidence of synovitis or acute arthritis. NEURO: Alert and oriented to name, place and person. Cranial nerve examination is unremarkable. No focal motor deficits. Normal speech. Gait is normal. Strength is normal. Vital Sign (Last 24 Hours) 07/15/25 07/15/25 07/15/25 06:50 11:42 12:36 Temp 97.7 Pulse 72 Resp 18 B/P (MAP) 118/59 Pulse Ox 96 O2 Delivery Room Air O2 Flow Rate 3.0 FiO2 32 Intake & Output (last 24hrs) 9/25/25 9/25/25 9/26/25 15:00 23:00 07:00 Intake Total 240 ml 240 ml Output Total 200 ml Balance 240 ml 40 ml Laboratory: [ ] Laboratory: Test 07/15/25 10:40 07/15/25 03:58 07/15/25 03:48 Range/Units Urine Color LIGHT-YELLOW YELLOW Urine Appearance CLEAR CLEAR Urine pH 5.5 5.0-8.0 Urine Specific [place] 1.019 1.001-1.031 Urine Protein NEGATIVE NEGATIVE mg/dL Urine Glucose (UA) NEGATIVE NEGATIVE mg/dL Urine Ketones NEGATIVE NEGATIVE mg/dL Urine Occult Blood NEGATIVE NEGATIVE Urine Nitrate NEGATIVE NEGATIVE Urine Bilirubin NEGATIVE NEGATIVE mg/dL Urine Urobilinogen 0.2 0.2-1.0 mg/dL Urine Leukocyte Esterase 75 H NEGATIVE Afshan/uL Urine RBC 2-5 H 0-1 /HPF Urine WBC 11-25 H 0-1 /HPF Urine Squamous Epithelial Cells RARE 0-2 /HPF Urine Bacteria None None Seen /HPF Stool Occult Blood POSITIVE H NEGATIVE White Blood Count 17.5 H 4.8-10.8 K/uL Red Blood Count 2.47 L 4.00-5.50 MIL/uL Hemoglobin 7.8 L 12.0-16.0 g/dL Hematocrit 26.7 L 36-48 % Mean Corpuscular Volume 108.1 H 79-99 fL Mean Corpuscular Hemoglobin 31.6 27.0-33.0 pg Mean Corpuscular Hemoglobin Concent 29.2 L 32.0-36.0 g/dL Red Cell Distribution Width 18.5 H 11.0-15.5 % Platelet Count 173 130-400 K/uL Mean Platelet Volume 10.9 H 7.5-10.5 fL Immature Granulocyte % (Auto) 1.3 H 0-1 % Neutrophils (%) (Auto) 95.5 H 40.0-77.0 % Lymphocytes (%) (Auto) 2.1 L 21.0-51.0 % Monocytes (%) (Auto) 1.0 L 3.0-13.0 % Eosinophils (%) (Auto) 0.0 0.0-8.0 % Basophils (%) (Auto) 0.1 0.0-5.0 % Neutrophils # (Auto) 16.8 H 1.8-7.7 K/uL Lymphocytes # (Auto) 0.4 L 1.0-4.8 K/uL Monocytes # (Auto) 0.2 0.1-1.0 K/uL Eosinophils # (Auto) 0.00 0.00-0.70 K/uL Basophils # (Auto) 0.01 0.00-0.20 K/uL Absolute Immature Granulocyte (auto 0.22 0-1 K/uL Nucleated Red Blood Cells 0.1 0.0-0.19 % Prothrombin Time 33.9 #H 9.6-11.6 SEC Prothromb Time International Ratio 3.63 *H 0.85-1.15 Sodium Level 139 136-145 mmol/L Potassium Level 3.6 3.5-5.1 mmol/L Chloride Level 99 L 101-111 mmol/L Carbon Dioxide Level 37 H 21-32 mmol/L Blood Urea Nitrogen 38 H 7-18 mg/dL Creatinine 1.5 H 0.5-1.0 mg/dL Glomerular Filtration Rate Calc 34 >90 mL/min Random Glucose 154 H 70-105 mg/dL Total Calcium 8.2 L 8.5-10.1 mg/dL Magnesium Level 2.30 1.80-2.40 mg/dL Total Bilirubin 0.5 0.2-1.0 mg/dL Aspartate Amino Transf (AST/SGOT) 20 10-37 U/L Alanine Aminotransferase (ALT/SGPT) 20 # 12-78 U/L Alkaline Phosphatase 67 50-136 U/L Total Protein 7.0 6.0-8.3 g/dL Albumin 2.8 L 3.5-5.0 g/dL Procalcitonin 1.29 H 0.05-0.5 ng/mL Blood Gas Specimen Type Arterial Arterial Blood pH 7.357 7.350-7.450 Arterial Blood Partial Pressure CO2 56 H 32-45 mmHg Arterial Blood Partial Pressure O2 101.8 83.0-108.0 mmHg Arterial Blood HCO3 30.7 H 21.0-28.0 mmol/L Arterial Blood Oxygen Saturation 97.1 94.0-98.0 % Arterial Blood Base Excess 4.3 H -2.0-3.0 mmol/L Hemoglobin (Blood Gas) 9.5 L 12.0-16.0 g/dL Sodium (Blood Gas) 141 136-145 MMOL/L Bedside Potassium (Blood Gas) 3.8 3.4-4.5 MMOL/L Bedside Chloride (Blood Gas) 100 98-107 MMOL/L Bedside Glucose (Blood Gas) 152 H 65-95 MG/DL Bedside Ionized Calcium (Blood Gas) 1.10 L 1.15-1.33 MMOL/L Bedside Lactic Acid (Blood Gas) 1.89 H 0.36-0.75 MMOL/L Blood Gas Temperature 37.0 35.5-37.0 CELSIUS Blood Gas Flow-by 3.00 0.00-15.00 L/min Blood Gas Vent Mode NC ROOM AIR FiO2 32.0 % Blood Gas Specimen Comment ALLAN RN ,LR Current Medications Medications (Trade) Dose Ordered Sig/Macey Route PRN Reason Start Time Stop Time Status Last Admin Dose Admin Acetaminophen (TYLenol 325MG TAB) 650 mg Q4H PRN PO TEMPERATURE GREATER THAN 101.5 07/11/25 11:00 08/10/25 10:59 07/14/25 14:21 650 MG Acetaminophen (TYLenol 325MG TAB) 650 mg Q6H PRN PO MILD PAIN (1-3) 07/11/25 15:30 08/10/25 15:29 07/11/25 15:31 650 MG Albuterol (DUOneb) 1 UDVIAL Q6H PRN IH SHORTNESS OF BREATH 07/11/25 11:00 08/10/25 10:59 07/12/25 11:13 1 UDVIAL Albuterol (DUOneb) 1 udvial [id number] IH 07/12/25 18:00 08/11/25 17:59 07/15/25 12:35 1 UDVIAL Allopurinol (ZYLOprim 100MG) 50 mg Q48H PO 07/12/25 09:00 08/11/25 08:59 07/14/25 10:10 50 MG Atorvastatin Calcium (LIPItor 10MG) 10 mg HS PO 07/11/25 21:00 08/10/25 20:59 07/14/25 21:33 10 MG Benzonatate (Tessalon 100mg Caps) 200 mg Q8H PO 07/15/25 10:00 08/14/25 09:59 07/15/25 10:39 200 MG Brimonidine Tartrate (Alphagan P) 1 DROP BID OU 07/14/25 21:00 08/13/25 20:59 07/15/25 08:19 1 ML Carvedilol (Coreg 3.125MG) 3.125 mg BID PO 07/11/25 21:00 08/10/25 20:59 07/15/25 08:18 3.125 MG Cefepime HCl (MAXipime 2 gm vial) 2 gm Q24H IVPB 07/11/25 11:00 07/12/25 12:08 DC 07/11/25 13:07 2 GM Ceftazidime (ForTAZ/TAZidime) 1 gm Q24H IVPB 07/15/25 12:00 07/25/25 11:59 07/15/25 12:37 1 GM Dexmedetomidine/ Sodium Chloride (PRECEdex 200MCG/ 50ML-NS) 200 mcg PROTOCOL IV 07/13/25 05:00 07/13/25 04:45 DC Dexmedetomidine/ Sodium Chloride (PRECEdex 400MCG/ 100ML-NS) 400 mcg PROTOCOL IV 07/13/25 05:00 08/12/25 04:59 07/13/25 04:55 400 MCG Docusate Sodium (COLace 100MG CAP) 100 mg BID PRN PO CONSTIPATION 07/11/25 12:00 08/10/25 11:59 Doxycycline Hyclate (Doxycycline Hyclate) 100 mg BID PO 07/11/25 21:00 07/21/25 20:59 07/15/25 08:19 100 MG Ferrous Sulfate (Ferrous Sulfate) 325 mg DAILY PO 07/12/25 09:00 08/11/25 08:59 07/15/25 08:19 325 MG Folic Acid (FOLic ACID 1 MG TABLET) 1 mg DAILY PO 07/12/25 09:00 07/12/25 09:40 DC Furosemide (LASix 40MG TAB) 40 mg BID@09,17 PO 07/12/25 09:00 07/15/25 07:13 DC 07/14/25 17:00 40 MG Furosemide (LASix 40MG TAB) 40 mg DAILY PO 07/15/25 07:30 08/11/25 08:59 07/15/25 08:21 40 MG Furosemide (LASix 40MG VIAL) 40 mg Q12H IV 07/11/25 21:00 07/12/25 07:56 DC 07/11/25 20:03 40 MG Guaifenesin/ Dextromethorphan (RobiTUSSin DM 200/20MG 10ML) 10 ml Q6H PRN PO COUGH 07/15/25 10:00 08/14/25 09:59 07/15/25 10:39 10 ML Lactulose (Constulose 20gm/ 30ml Udcup) 20 gm BID PRN PO CONSTIPATION 07/11/25 11:00 08/10/25 10:59 Latanoprost (Xalatan) 1 DROP HS OU 07/14/25 21:00 08/13/25 20:59 07/14/25 21:44 1 DROP Lidocaine (Lidocaine Patch 4%) 1 each Q24H TP 07/11/25 16:00 08/10/25 15:59 07/13/25 16:14 1 EACH Losartan Potassium (CozAAR 25MG TAB) 25 mg DAILY PO 07/12/25 09:00 07/12/25 11:47 DC Magnesium Sulfate 50 ml @ 0 mls/hr PROTOCOL PRN IV low mag level 07/11/25 11:30 08/10/25 11:29 Melatonin (Melatonin) 5 mg HSPRN PO 07/13/25 20:30 08/12/25 20:29 07/14/25 21:40 5 MG Methylprednisolone Sodium Succinate (Solu-medROL 40MG) 40 mg Q12H IVP 07/13/25 19:30 08/11/25 15:29 07/15/25 08:19 40 MG Methylprednisolone Sodium Succinate (Solu-medROL 40MG) 40 mg Q8H IVP 07/12/25 15:30 07/13/25 09:37 DC 07/13/25 06:37 40 MG Metronidazole/ Sodium Chloride 100 ml @ 100 mls/hr Q8H IVPB 07/12/25 10:00 07/12/25 15:27 DC 07/12/25 10:02 100 MLS/HR Pantoprazole Sodium (PROTonix 40MG INJ) 40 mg BID IVP 07/11/25 21:00 08/10/25 20:59 07/15/25 08:19 40 MG Pharmacy Profile Note (Pharmacy Communication) 1 each ONCE MISC 07/14/25 15:30 07/14/25 15:09 DC Piperacillin Sod/ Tazobactam Sod (Zosyn 3.375gm+NS 50ml) 3.375 gm Q8H IV 07/12/25 12:30 07/15/25 11:45 DC 07/15/25 05:51 3.375 GM Potassium Chloride 100 ml @ 100 mls/hr AD PRN IV POTASSIUM PROTOCOL 07/11/25 11:30 08/10/25 11:29 Potassium Chloride (K-Dur/Klor-Con 20meq) 20 meq AD PRN PO POTASSIUM PROTOCOL 07/11/25 11:30 08/10/25 11:29 07/15/25 05:50 20 MEQ Potassium Chloride (KCl 10% Elixir 20meq/15ml) 20 meq AD PRN PO POTASSIUM PROTOCOL 07/11/25 11:30 08/10/25 11:29 Thiamine HCl (Vitamin B-1) 100 mg DAILY IVP 07/13/25 09:00 08/12/25 08:59 07/15/25 08:19 100 MG Vancomycin HCl (Vancomycin 1g/ 250ml Kit) 1 gm Q12H IV 07/11/25 11:00 07/11/25 11:02 DC Warfarin Sodium (Coumadin) 2 mg WARF PO 07/12/25 16:00 07/13/25 06:54 DC 07/12/25 15:23 2 MG Warfarin Sodium (Coumadin) 2.5 mg QSU PO 07/17/25 09:00 07/11/25 15:37 DC Warfarin Sodium (Coumadin) 2.5 mg QTUTHSA PO 07/12/25 09:00 07/11/25 15:37 DC Warfarin Sodium (Coumadin) 5 mg QMOWEFR PO 07/11/25 16:00 07/11/25 15:37 DC Diagnostics / Radiology: [COPY/PASTE HERE IF NO REPORTS PLEASE DELETE SECTION] Assessment: [ Concern for GI bleed Melena CAD ] Plan: [Recommendations for EGD given. Information on procedure explained to patient and daughter. All their questions were answered and patient declined exam. She stated she did not want to have any endoscopies done. Recommend trending HGB and transfuse as needed to goal of HGB > 7 Please call with questions, concerns, and change in clinical status. Thank you for this consult. ] PIPO MASON NP Jul 15, 2025 15:05
--- NOTE | 2025-07-15 15:19 | PN ---
INFECTIOUS DISEASE PROGRESS NOTE Date of Service: Jul 15, 2025 SUBJECTIVE: This 84 year old female patient is being seen today at bedside. No fever or chills. No nausea or vomiting. Patient denies any chest pain at this time. Blood cultures came positive for Acinetobacter baumannii, adjustments on antibiotics will be made. Patient is pending to be evaluate by GI for possible GI bleed. Went over plan of care with daughter at bedside. Concerns and questions were addressed. We continue to follow patient closely . PHYSICAL EXAM EYES: Anicteric. Pupils equal and reactive. HENT: No oral thrush seen, moist Oral mucosa. NECK: Supple, no JVD or thyromegaly. LUNGS: Diminished breath sounds. Oxygen support. CARDIOVASCULAR: S1, S2 regular. No murmur heard. ABDOMEN: Soft, non tender, bowel sounds present, no organomegaly. CENTRAL NERVOUS SYSTEM: Awake, alert, oriented x 3. SKIN: No rashes, no swelling. LYMPHATICS: No peripheral lymphadenopathy. MUSCULOSKELETAL: No joint swelling, erythema or tenderness. EXTREMITIES: No cyanosis or clubbing. BACK: No deformity, no pressure ulcer. GENITOURINARY: No dysuria or hematuria. Cantu catheter. Vital Sign (Last 12 Hours) 07/15/25 07/15/25 07/15/25 07/15/25 04:00 06:47 06:50 08:00 Temp 98.1 98.6 Pulse 82 69 69 63 Resp 18 18 18 20 B/P (MAP) 120/57 131/58 Pulse Ox 97 95 O2 Delivery Nasal Cannula N/Cannula Low lpm Nasal Cannula O2 Flow Rate 4.0 3.0 FiO2 32 07/15/25 07/15/25 07/15/25 08:18 11:42 12:36 Temp 97.7 Pulse 70 72 Resp 20 18 B/P (MAP) 131/58 118/59 Pulse Ox 96 O2 Delivery Room Air Intake & Output (last 24hrs) 07/14/25 07/14/25 07/15/25 15:00 23:00 07:00 Intake Total 240 ml 240 ml Output Total 200 ml Balance 240 ml 40 ml LABS: Laboratory: Test 07/15/25 10:40 07/15/25 03:58 07/15/25 03:48 Range/Units Urine Color LIGHT-YELLOW YELLOW Urine Appearance CLEAR CLEAR Urine pH 5.5 5.0-8.0 Urine Specific [place] 1.019 1.001-1.031 Urine Protein NEGATIVE NEGATIVE mg/dL Urine Glucose (UA) NEGATIVE NEGATIVE mg/dL Urine Ketones NEGATIVE NEGATIVE mg/dL Urine Occult Blood NEGATIVE NEGATIVE Urine Nitrate NEGATIVE NEGATIVE Urine Bilirubin NEGATIVE NEGATIVE mg/dL Urine Urobilinogen 0.2 0.2-1.0 mg/dL Urine Leukocyte Esterase 75 H NEGATIVE Afshan/uL Urine RBC 2-5 H 0-1 /HPF Urine WBC 11-25 H 0-1 /HPF Urine Squamous Epithelial Cells RARE 0-2 /HPF Urine Bacteria None None Seen /HPF Stool Occult Blood POSITIVE H NEGATIVE White Blood Count 17.5 H 4.8-10.8 K/uL Red Blood Count 2.47 L 4.00-5.50 MIL/uL Hemoglobin 7.8 L 12.0-16.0 g/dL Hematocrit 26.7 L 36-48 % Mean Corpuscular Volume 108.1 H 79-99 fL Mean Corpuscular Hemoglobin 31.6 27.0-33.0 pg Mean Corpuscular Hemoglobin Concent 29.2 L 32.0-36.0 g/dL Red Cell Distribution Width 18.5 H 11.0-15.5 % Platelet Count 173 130-400 K/uL Mean Platelet Volume 10.9 H 7.5-10.5 fL Immature Granulocyte % (Auto) 1.3 H 0-1 % Neutrophils (%) (Auto) 95.5 H 40.0-77.0 % Lymphocytes (%) (Auto) 2.1 L 21.0-51.0 % Monocytes (%) (Auto) 1.0 L 3.0-13.0 % Eosinophils (%) (Auto) 0.0 0.0-8.0 % Basophils (%) (Auto) 0.1 0.0-5.0 % Neutrophils # (Auto) 16.8 H 1.8-7.7 K/uL Lymphocytes # (Auto) 0.4 L 1.0-4.8 K/uL Monocytes # (Auto) 0.2 0.1-1.0 K/uL Eosinophils # (Auto) 0.00 0.00-0.70 K/uL Basophils # (Auto) 0.01 0.00-0.20 K/uL Absolute Immature Granulocyte (auto 0.22 0-1 K/uL Nucleated Red Blood Cells 0.1 0.0-0.19 % Prothrombin Time 33.9 #H 9.6-11.6 SEC Prothromb Time International Ratio 3.63 *H 0.85-1.15 Sodium Level 139 136-145 mmol/L Potassium Level 3.6 3.5-5.1 mmol/L Chloride Level 99 L 101-111 mmol/L Carbon Dioxide Level 37 H 21-32 mmol/L Blood Urea Nitrogen 38 H 7-18 mg/dL Creatinine 1.5 H 0.5-1.0 mg/dL Glomerular Filtration Rate Calc 34 >90 mL/min Random Glucose 154 H 70-105 mg/dL Total Calcium 8.2 L 8.5-10.1 mg/dL Magnesium Level 2.30 1.80-2.40 mg/dL Total Bilirubin 0.5 0.2-1.0 mg/dL Aspartate Amino Transf (AST/SGOT) 20 10-37 U/L Alanine Aminotransferase (ALT/SGPT) 20 # 12-78 U/L Alkaline Phosphatase 67 50-136 U/L Total Protein 7.0 6.0-8.3 g/dL Albumin 2.8 L 3.5-5.0 g/dL Procalcitonin 1.29 H 0.05-0.5 ng/mL Blood Gas Specimen Type Arterial Arterial Blood pH 7.357 7.350-7.450 Arterial Blood Partial Pressure CO2 56 H 32-45 mmHg Arterial Blood Partial Pressure O2 101.8 83.0-108.0 mmHg Arterial Blood HCO3 30.7 H 21.0-28.0 mmol/L Arterial Blood Oxygen Saturation 97.1 94.0-98.0 % Arterial Blood Base Excess 4.3 H -2.0-3.0 mmol/L Hemoglobin (Blood Gas) 9.5 L 12.0-16.0 g/dL Sodium (Blood Gas) 141 136-145 MMOL/L Bedside Potassium (Blood Gas) 3.8 3.4-4.5 MMOL/L Bedside Chloride (Blood Gas) 100 98-107 MMOL/L Bedside Glucose (Blood Gas) 152 H 65-95 MG/DL Bedside Ionized Calcium (Blood Gas) 1.10 L 1.15-1.33 MMOL/L Bedside Lactic Acid (Blood Gas) 1.89 H 0.36-0.75 MMOL/L Blood Gas Temperature 37.0 35.5-37.0 CELSIUS Blood Gas Flow-by 3.00 0.00-15.00 L/min Blood Gas Vent Mode NC ROOM AIR FiO2 32.0 % Blood Gas Specimen Comment ALLAN VARGAS ,LR RUN DATE: 07/15/25 [facility] [address] 1 RUN TIME: [phone] [address], [place] [address] Department of Laboratories CLIA # [id number] Puller Over: Francisco Rae DO Specimen Report PATIENT: PK BATEMAN ACCT: [id number] LOC: [facility] U: [id number] AGE/SX: 84/F ROOM: [facility] RE07/11/[address]: DAYANNA RODRIGUEZ MD : 1940 BED: 1 DIS: STATUS: ADM IN TLOC: SPEC: [id number] VINAYAK: 07/11/25 STATUS: COMP REQ: [id number] RECD: 07/12/[address]: RUBEN BARTLETT DO SOURCE: BLOOD ENTR: 07/12/25 [facility] : N[facility] JOVANNA ARMENTA MD ORDERED: AERO ID & SENS Procedure Result Kassandra Date-Time AEROBIC ID & SENSITIVITIES Final 07/15/25-0[facility] DESCRIPTION: DAY 1: GRAM NEGATIVE RODS PEDIATRIC BOTTLE IDENTIFICATION AND SENSITIVITY TO FOLLOW DAY 2: SLOW-GROWER; RESULTS PENDING DAY 3: NO FURTHER WORK-UP DONE ACINETOBACTER BAUMANNII/HAEMOL SHYAM NEW/[facility] M.I.[facility] RX --------- ---- CEFTAZIDIME 4 S GENTAMICIN <=2 S AMPICILLIN/SULBACTAM <=8/4 S MEROPENEM <=1 S TRIMETHOPRIM/SUFLAMETHOXAZOLE <=2/38 S @ [facility] Test Performed at: [facility] [address], [place], [place] Medical Dietician: Merritt Singh D.O. END OF REPORT ASSESSMENT: Gram-negative bacteremia. Acute hypoxic respiratory failure, requiring oxygen support. Pneumonia. Sepsis. Leukocytosis. Anemia. Renal failure. PLAN: Start ceftazidime Continue doxycycline. GI to evaluate patient. Continue GI prophylaxis. Continue IV steroids. Continue oxygen support. We will place a PICC line if the repeat blood cultures are negative. This case was reviewed and discussed with my supervising physician Dr. Lenz and the above assessment and plan was formulated and agreed upon. HALLIE ALVAREZ [facility] Jul 15, 2025 15:19
--- NOTE | 2025-07-15 16:19 | NUR ---
REPORT CALLED TO SAM KENNY AT [facility] AT [phone].
--- NOTE | 2025-07-15 16:23 | HMCIMG ---
CHEST 1VW REASON: intubated COMPARISON: Chest radiograph from 07/14/2025 is available. FINDINGS: Single view of the chest was obtained. 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 There is a left-sided pacemaker with lead in right atrium and right ventricle. There is a infiltrate seen in the right upper lung. The remaining lung mcconnell are clear.. Mediastinum and bony thorax appear unremarkable. IMPRESSION: 1. Cardiomegaly with median sternotomy with cardiac prosthesis in place 2. Right upper lobe infiltrate..
--- NOTE | 2025-07-15 18:03 | NUR ---
EMS IN TO [facility] PATIENT AND TRANSFER TO [facility].
--- NOTE | 2025-07-16 13:05 | DS ---
Discharge Summary Hospital Course Summary: This is a 84-year-old female that presents in ED with chief complaints of shortness a breath. She was brought in by EMS in route patient was placed on non-rebreather. Patient has past medical history of congestive heart failure mitral valve replacement on Coumadin, AFib, advanced pulmonary fibrosis oxygen dependent. Onset shortness a breath has been gradually and progressed over the weekend. Severity severe aggravating factors activity laying flat. Alleviating factors none. Associated symptoms productive cough, mild chills overnight. Patient reports choking with thin liquids. Patient was admitted a month ago at [facility] for similar symptoms. Patient follows bicycle designer's Dr. Sachin Maynard MD. [facility] primary inspector agricultural commodities's Dr. Stevens. Spoke with [facility]: Neva Garrison modified DNR on this admission 07/12/25 patient was seen earlier patient continues on AVPS support. Primary nurse reports patient desat this lithographic printing machinist: Deputy Sheriff/Investigator doing trails goal to titrated Titrate Fio2 to keep Spo2 > or = 90%. cutter machine tender consulted for nutritional support recommendations . the patient is fully awake and alert. I discussed Hospice Palliative care and LTAC with [facility] Neva Garrison. WE will continue to monitor patient progress. critical care following: goal to Titrate Fio2 to keep Spo2 > or = 90% Weaned Bipap. 07/13/25 patient was seen earlier. Case management discussed LTAC with medical [id number] and she agreed for patient to be transitioned to LTAC. Patient needs three nights of telemetry be completed tomorrow. Patient continues on BiPAP support continues with trials. Continues broad broad- spectrum antibiotics. Patient was evaluated by speech was started on pureed diet. 07/14/25 was transitioned to PCCU overnight. Patient continues with nasal cannula 2 L throughout the day and overnight. Patient waiting for acceptance to LTAC. Primary nurse reports no events overnight 07/15/25 late entry patient was seen earlier we continue to wait for blood cultures final report continue with broad-spectrum patient got accepted to LTAC. Occult blood was positive where there was no active bleeding we continue to monitor her INR today above 3.1. We will continue to hold Coumadin. She will we will need GI referral outpatient setting. We will transitioned to LTAC for IV antibiotics pneumonia and bacteremia and to monitor her INR. On this admission patient did not require blood products transfusion. Her respiratory function improved significantly wishes to patient's on nasal cannula oxygen. I had long discussion with the patient and family members regarding the plan of care all questions and concerns were answered. Procedure(s): CHEST 1VW REASON: intubated COMPARISON: Chest radiograph from 07/14/2025 is available. FINDINGS: Single view of the chest was obtained. 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 There is a left-sided pacemaker with lead in right atrium and right ventricle. There is a infiltrate seen in the right upper lung. The remaining lung mcconnell are clear.. Mediastinum and bony thorax appear unremarkable. IMPRESSION: 1. Cardiomegaly with median sternotomy with cardiac prosthesis in place 2. Right upper lobe infiltrate.. REASON: swelling to lower ext ORDERING PHYSICIAN: BROCK KWAN NP PROCEDURE: VENOUS LUCIA - US VENOUS DOPPLER BILATERAL EXAM: US Duplex Right Lower Extremity Veins. CLINICAL HISTORY: 84 year old female with swelling. TECHNIQUE: Real-time ultrasound scan of the veins of the right lower extremity with color Doppler flow, spectral waveform analysis and compression. REASON: pulmonary fibrosis ORDERING PHYSICIAN: BRYNN BALDWIN MD PROCEDURE: CHEST WO - CT CHEST W/O CONTRAST EXAM: CT Chest Without Intravenous Contrast. CLINICAL HISTORY: 84-year-old female with pulmonary fibrosis. TECHNIQUE: Axial computed tomography images of the chest without intravenous contrast. Dose reduction technique was used including one or more of the following: automated exposure control, adjustment of mA and kV according to patient size, and/or iterative reconstruction. CONTRAST: Without. COMPARISON: Prior XR 07/13/2025 04:22 am. FINDINGS: LUNGS: Pulmonary fibrosis. Patchy consolidation in the right lower lobe and right middle lobe suggesting pneumonia. No pulmonary mass. PLEURAL SPACES: Small right pleural effusion. Small left effusion. No pneumothorax. HEART AND MEDIASTINUM: No cardiomegaly. No significant pericardial effusion. Atherosclerotic aorta iliac bifurcation. LYMPH NODES: No lymphadenopathy. CHEST WALL AND UPPER ABDOMEN: Multiple gallstones seen. Atrophic right kidney. Sternotomy wires seen. The chest wall is unremarkable. BONES: Moderate degenerative changes in the lumbar spine with a compression deformity of T12 loss of height and 40 to 50%. Findings better appreciated from prior XR 07/13/2025 04:22 am. IMPRESSION: 1. Patchy consolidation in the right lower lobe and right middle lobe, suggesting pneumonia. 2. Pulmonary fibrosis. 3. Small right pleural effusion and small left effusion. 4. Findings better appreciated from prior XR 07/13/25 04:22 am. /Eastern COMPARISON: None provided. FINDINGS: DEEP VEINS: The common femoral, femoral, and popliteal veins are echolucent and compressible. These vessels demonstrate respiratory variation and augmentation. There is normal color Doppler flow throughout. The visualized calf veins are also patent. Pulsatile flow is noted. SUPERFICIAL VEINS: The visualized greater saphenous vein is patent. SOFT TISSUES: No popliteal fossa cyst or other abnormalities, but there is swelling noted in the right leg. IMPRESSION: 1. No deep venous thrombosis in the right lower extremity. EXAM: US Duplex Left Lower Extremity Veins. CLINICAL HISTORY: 84 year old female with swelling. TECHNIQUE: Real-time ultrasound scan of the veins of the left lower extremity with color Doppler flow, spectral waveform analysis and compression. COMPARISON: None provided. FINDINGS: DEEP VEINS: The common femoral, femoral, and popliteal veins are echolucent and compressible. These vessels demonstrate respiratory variation and augmentation. There is normal color Doppler flow throughout. The visualized calf veins are also patent. SUPERFICIAL VEINS: The visualized greater saphenous vein is patent. SOFT TISSUES: No popliteal fossa cyst or other abnormalities, but there is notable swelling in the left leg. Additionally, pulsatile flow was noted in the left leg. IMPRESSION: 1. No deep venous thrombosis in the left lower extremity. /Eastern REASON: chf ORDERING PHYSICIAN: BROCK KWAN NP PROCEDURE: ECHO [facility] - ECHO 2-D COMPLETE APPROVED REPORT EXAM: Two-dimensional and M-mode echocardiogram with Doppler and color Doppler. INDICATION ICD: Congestive heart failure 2D Dimensions RVDd 4.6 cm LVEF(%) 61.1 (>50%) LVED Vol(simp.) 85.0 mL IVSd 0.6 (0.7-1.1cm) FS(%) 33 % LVES Vol(simp.) 38.0 mL LVDd 4.7 (3.8-5.6cm) LA (2D) 6.0 (1.6-4.0cm) LVEF(%, simp.) 56 % PWd 0.9 (0.7-1.1cm) Ao Root(2D) 3.3 (2.0-3.7cm) LA ESV INDEX (BP) 63.74 mL/m2 IVSs 1.0 cm LVOT diam 2.0 (1.8-2.4cm) LVDs 3.2 (2.5-4.0cm) IVC diam 2.2 cm PWs 1.4 cm Deformation Strain Apical 4 -12.5 % Apical 2 -16.0 % Apical 3 -13.3 % Global Strain -13.9 % M-Mode Dimensions LA (MM) 6.2 (1.6-4.0cm) Ao Root(MM) 2.7 (2.0-3.7cm) Aortic Valve AoV Vmax 1.8 m/s Ao Peak GR 12.7 mmHg LVOT Vmax 0.9 m/s AoV VTI 0.3 m Ao Mean GR 8.2 mmHg LVOT VTI 0.17 m VINCENZO (VMAX) 1.47 cm2 VINCENZO (VTI) 1.5 cm2 Mitral Valve MV E Vmax 175.6 cm/s DECEL Time 240 ms MV Peak GR 14 mmHg P 1/2 T 69 ms MV Mean GR 4 mmHg MVA (PHT) 3.2 cm2 MVA (VTI) 1.35 cm2 TDI E/E' Medial 35.8 E/E' Lateral 29.0 Medial E' Peak V 4.91 cm/s Lateral E' Peak V 6.06 cm/s Pulmonary Valve PV Vmax 0.8 m/s PV VTI 0.16 m PV Mean GR 1.7 mmHg PV Peak GR 2.7 mmHg PI End Naila. Rodríguez 82.2 cm/s Tricuspid Valve TR Vmax 3.0 m/s RAP (EST) 15 mmHg RVSP 52.2 mmHg TR Peak GR 37.2 mmHg Left Ventricle The left ventricle is normal size. GLS -14.0% There is normal left ventricular wall thickness. LVEF is 55-60%. Stage II diastolic dysfunction. Right Ventricle The right ventricle is moderately dilated. The right ventricular systolic function is normal. Atria The left atrium is severely dilated. The right atrium is moderately dilated. Aortic Valve Aortic valve is trileaflet. Aortic valve annular calcification noted. No aortic regurgitation is present. There is mild aortic valvular stenosis. Pk G 13mmHg. mean G 8mmHg and AoV area 1.5cm2 Mitral Valve Mitral valve prosthesis is not well visualized. There is trace of mitral valve regurgitation noted. Prosthetic valve Pk G 14mmHg, with mean gradient 4mmHg. Tricuspid Valve The tricuspid valve is normal in structure. There is moderate tricuspid valve regurgitation noted. RVSP 52mmHg. Pulmonic Valve The pulmonary valve is normal in structure. There is trace of pulmonic valvular regurgitation. Great Vessels The aortic root is normal in size. IVC is dilated and collapses <50% with inspiration. Pericardium There is no pericardial effusion. Other Information Quality : Technically difficult study due to body habitus Rhythm : NSR Conclusion LVEF is 55-60%. Stage II diastolic dysfunction. The right ventricle is moderately dilated. The left atrium is severely dilated. There is mild aortic valvular stenosis. Pk G 13mmHg. mean G 8mmHg and AoV area 1.5cm2 Mitral valve prosthesis is not well visualized. Peak gradient 14mmHg, with mean gradient 4mmHg. Moderate tricuspid valve regurgitation noted. RVSP 52mmHg. DICTATED BY: BILL DOSHI DO DATE: 07/11/25 1143 Assessment/Plan: discharged dx: Acute respiratory failure with hypoxia POA requiring oxygen supplemental BiPAP support Suspecting aspiration pneumonia POA History advanced pulmonary fibrosis POA Home oxygen dependent POA acute CHF on Chronic CHF with Mitral value replacement Hypercoagulable state on Coumadin secondary to MVR persistent A fibb on Warfarin pOA Sepsis( temperature 103.6 heart rate 115 respirations 26) POA gram negative bacteremia POA BINU on chronic renal failure POA Acute anemia on chronic anemia POA debility with physical deconditioning Elevated Coumadin ( toxicity) not POA Leukocytosis most likely secondary to IV steroids POA PLAN: [ ] ADMISSION DATE: DISCHARGE DATE: 07/15/25 DISPOSITION: LTAC CONDITION: stable COLLECTION SYSTEMS FOREMAN(S): Global Professional's, bicycle designer's, foot worker's PROCEDURES: IMAGING (S) report attached to summary : MICROBIOLOGY: report attached to summary; ACTIVITY: ab zoila HOME MEDICATIONS CHANGES ON HOME MEDICATIONS NEW MEDICATIONS TEACHING: Emergency instructions: The patient was instructed to present to the nearest Emergency Department or call 911 should their symptoms return or worsen. Discharge Instructions: MBSS COMPLETED. No aspiration/ no penetrations. RECOMMEND: regular solids, thin liquids and pills whole with liquids as tolerated. COMPENSATORY STRATEGIES: 1. sit upright during oral intake 2. extra dry swallows DIAGNOSTIC FINDINGS: Oropharyngeal swallowing is within functional limits. No penetrations or aspiration observed. Pt with mild pharyngeal residue cleared with re-swallows. Otherwise, exam was negative for etiology of patients c/o coughing and throat clearing with oral intake. RESIDENT MEDICAL OFFICER reviewed results and recommendations with patient and nurse Porfirio Crooks. RESIDENT MEDICAL OFFICER educated patient on risks and consequences of aspiration. Speech therapy not warranted at this time. All questions answered. Addendum: 07/14/[address]LEY SIDDIQI Amended: Links added. %%%%%%%%%% Links Intervention Doc: Modified Barium Swallow Study Report User: St KILEY Siddiqi Date: 07/13/25 16:00 Type: Speech Therapy Notes BEDSIDE SWALLOW EVAL COMPLETED. No s/s of aspiration. Recommend regular solids, thin liquids and pills whole with liquids as tolerated. RESIDENT MEDICAL OFFICER reviewed results and recommendations with patient and nurse George. RESIDENT MEDICAL OFFICER educated patient on risks and consequences of aspiration. Speech therapy not warranted at this time. All questions answered. Addendum: 07/13/[address] MOE Amended: Marty added. %%%%%%%%%% Links Intervention Doc: ST Bedside Assessment (G) Nutritional Note: Chart, meds, and labs Reviewed. RESIDENT MEDICAL OFFICER 07/11/25 recommendations: Recommend NPO, short term alternate means of nutrition/hydration. Recommend: -When medically feasible advance diet to 75gm cc diet texture as per RESIDENT MEDICAL OFFICER recommendations. -If unable to advance diet consider TF, preferred if GI tract functional. -Vital AF -Start TF @20ml x 6hrs and then increase by 5ml q 4hr to goal rate 50 ml/hr. If residual >500 ml stop TF for 2 hours and then restart if residual continues to be >500 ml stop TF and notify MD 24 TF total provides: 1440kcal, 90gm/pro, and 973total free H20/day. -250ml H20 flush q 6 or H20 flush as per MD. Reassess based on I/Os and renal function. -adult MVI - Electrolyte replacements per protocol -Monitor feeding tolerance, %, wt, and labs -Document PO intake and wt daily. -If No BM >3days consider bowel stimulant. -Consider appetite stimulant if intake remains <75%for 3 days. -Schedule outpatient RD f/u for long-term nutrition . - Notify RD if additional nutrition concerns arise. SEE RD Nutritional Assessment for additional assessment information. Home Medications: Reported Medications Warfarin Sodium (Warfarin Sodium) 2.5 Mg Tablet, 1 TAB PO QTUTHSA for 30 Days, #30 TAB 0 Refills 07/11/25 Warfarin Sodium (Warfarin Sodium) 5 Mg Tablet, 1 TAB PO QMOWEFR for 30 Days, #30 TAB 0 Refills 07/11/25 Potassium Chloride (Potassium Chloride) 20 Meq Tab.er.prt, 1 TAB PO DAILY for 30 Days, #30 TAB 0 Refills 07/11/25 Atorvastatin Calcium (LIPITOR) 10 Mg Tab, 1 TAB PO HS for 30 Days, #30 TAB 0 Refills 07/11/25 Losartan Potassium (Losartan Potassium) 50 Mg Tablet, 1 TAB PO DAILY for 30 Days , #30 TAB 0 Refills 07/11/25 Furosemide (Furosemide) 40 Mg Tablet, 1 TAB PO BID for 30 Days, #30 TAB 0 Refi lls 07/11/25 Carvedilol (Carvedilol) 3.125 Mg Tablet, 1 TAB PO BID for 30 Days, #60 TAB 0 Refills 07/11/25 Allopurinol (Allopurinol) 100 Mg Tablet, 1 TAB PO DAILY for 30 Days, #30 TAB 0 Refills 07/11/25 Discontinued Reported Medications Brimonidine Tartrate/Timolol (Combigan Eye Drops) 5 Ml Drops, 5 ML OP BID, DROP 08/05/18 Cyanocobalamin (Vitamin B-12) (Vitamin B-12) 100 Mcg Tablet, 100 MCG PO DAILYLUNCH, TAB 08/05/18 Pantoprazole Sodium (Pantoprazole Sodium) 20 Mg Tablet.dr, 20 MG PO DAILY, TAB 08/03/18 Hollywood-3 Fatty Acids/Fish Oil (Hollywood 3 1,000 mg Softgel) 1 Each Capsule, 1 EACH PO NOON, CAP 08/03/18 Calcium Carb & Cit/Vitamin D3 (Calcium + D3 ER Tablet) 1 Each Tablet.er, 1 EACH PO NOON, TAB 08/03/18 Tamoxifen Citrate (Tamoxifen Citrate) 20 Mg Tablet, 20 MG PO DAILY, TAB 08/03/18 Metoprolol Tartrate (Metoprolol Tartrate) 25 Mg Tablet, 25 MG PO BID, TAB 08/03/18 Warfarin Sodium (Coumadin) 2.5 Mg Tablet, 2.5 MG PO t//fri, TAB 08/03/18 Warfarin Sodium (Coumadin) 5 Mg Tablet, 5 MG PO //fri/fri, TAB 08/03/18 Continued Medications: Allopurinol (Allopurinol) 100 Mg Tablet 1 TAB PO DAILY for 30 Days, #30 TAB 0 Refills Atorvastatin Calcium (Lipitor) 10 Mg Tab 1 TAB PO HS for 30 Days, #30 TAB 0 Refills Carvedilol (Carvedilol) 3.125 Mg Tablet 1 TAB PO BID for 30 Days, #60 TAB 0 Refills Furosemide (Furosemide) 40 Mg Tablet 1 TAB PO BID for 30 Days, #30 TAB 0 Refills Losartan Potassium (Losartan Potassium) 50 Mg Tablet 1 TAB PO DAILY for 30 Days, #30 TAB 0 Refills Potassium Chloride (Potassium Chloride) 20 Meq Tab.er.prt 1 TAB PO DAILY for 30 Days, #30 TAB 0 Refills Warfarin Sodium (Warfarin Sodium) 5 Mg Tablet 1 TAB PO QMOWEFR for 30 Days, #30 TAB 0 Refills Warfarin Sodium (Warfarin Sodium) 2.5 Mg Tablet 1 TAB PO QTUTHSA for 30 Days, #30 TAB 0 Refills Time spent arranging discharge: 31-60 minutes ATTESTATION BY PHYSICIAN I have seen and examined the patient. I reviewed the documentation, medical decision making, and treatment plan as noted by the mid-level provider above. I agree with the findings and plan of care. DAYANNA RODRIGUEZ MD, ELIZABETH NP Jul 16, 2025 13:05
[2025-07-17] MEDS ORDERED: WARFARIN SODIUM 2.5 MG TAB PO SCH (09:00)
== END 2025-07-15 18:00 | DRG 871 ==
LOC: EDH 08:45 → EDHIP 10:46 → 2CH 14:07 → 2DH 07-14 03:55
PROVIDERS: ADMIT Internal Medicine; ATTEND Internal Medicine
PROC: 5A09357 Assistance with Respiratory Ventilation, Less than 24 Consecutive Hours, Continuous Positive Airway Pressure (ICD-10-PCS; principal; 2025-07-11)
PROC: 5A09357 Assistance with Respiratory Ventilation, Less than 24 Consecutive Hours, Continuous Positive Airway Pressure (ICD-10-PCS; 2025-07-12)
PROC: 5A09357 Assistance with Respiratory Ventilation, Less than 24 Consecutive Hours, Continuous Positive Airway Pressure (ICD-10-PCS; 2025-07-13)
PROC: 5A09357 Assistance with Respiratory Ventilation, Less than 24 Consecutive Hours, Continuous Positive Airway Pressure (ICD-10-PCS; 2025-07-14)
DX: A41.50 Gram-negative sepsis, unspecified (principal); J18.9 Pneumonia, unspecified organism; J96.21 Acute and chronic respiratory failure with hypoxia; J96.22 Acute and chronic respiratory failure with hypercapnia; J69.0 Pneumonitis due to inhalation of food and vomit; D68.59 Other primary thrombophilia; I48.19 Other persistent atrial fibrillation; N17.9 Acute kidney failure, unspecified; D53.9 Nutritional anemia, unspecified; I34.0 Nonrheumatic mitral (valve) insufficiency; I45.9 Conduction disorder, unspecified; J84.10 Pulmonary fibrosis, unspecified; N18.32 Chronic kidney disease, stage 3b; I25.10 Atherosclerotic heart disease of native coronary artery without angina pectoris; I50.9 Heart failure, unspecified; T38.0X5A Adverse effect of glucocorticoids and synthetic analogues, initial encounter; T45.515A Adverse effect of anticoagulants, initial encounter; W44.F3XA Food entering into or through a natural orifice, initial encounter; I35.0 Nonrheumatic aortic (valve) stenosis; I27.20 Pulmonary hypertension, unspecified; I07.1 Rheumatic tricuspid insufficiency; D63.1 Anemia in chronic kidney disease; B96.89 Other specified bacterial agents as the cause of diseases classified elsewhere; B96.83 Acinetobacter baumannii as the cause of diseases classified elsewhere; T17.928A Food in respiratory tract, part unspecified causing other injury, initial encounter; M81.0 Age-related osteoporosis without current pathological fracture; Z66 Do not resuscitate; Z99.81 Dependence on supplemental oxygen; Z95.2 Presence of prosthetic heart valve; Z79.01 Long term (current) use of anticoagulants; Z79.899 Other long term (current) drug therapy; Z95.1 Presence of aortocoronary bypass graft
CPT/HCPCS: 36415; 36600; 71045; 71250; 74230; 80048; 80053; 81001; 82270; 82435; 82550; 82607; 82728; 82746; 82803; 82947; 83521; 83540; 83550; 83605; 83735; 83880; 84132; 84145; 84295; 84484; 85018; 85025; 85610; 85730; 86140; 86334; 86880; 87040; 87086; 87186; 87426; 87804; 87880; 88184; 88185; 88189; 92610; 92611; 93005; 93306; 93356; 93970; 94640; 94660; 96374; 96376; 99291; G0378; J0456; J0692; J0713; J1938; J2270; J2470; J2543; J2919; J3411; J3490; J7120